=== PATIENT | male | born 1945 | race Hispanic/Latino ===

== ENCOUNTER 2017-09-09 00:10 | Emergency (ER) | payer OTHER ==
--- OUTSIDE RECORDS SUMMARY | 2017-09-09 00:12 | XMS REPORT | Clinical Summary ---
:1945 Author Organization [facility] Address [address] [place] [address] Care Team Providers Name Role Phone Delmer Naylor MD Primary Care Provider Allergies No Known Allergies Current Medications Hospital, Clinic, or Other Ordered Dose Route Frequency Start Date End Date Status Facility Administered Medication methylPREDNISolone acetate 40 mg IAtc Once 12/14/2015 Active (DEPO-MEDROL) injection 40 mgIndications: Knee pain, acute, left lidocaine (XYLOCAINE) 10 10 mg inj Once 12/14/2015 Active mg/mL (1 %) injection 10 mgIndications: Knee pain, acute, left Active Problems Problem Noted Date Complex tear of medial meniscus of left knee as current injury 03/21/2016 Social History Tobacco Use Types Packs/Day Years Used Date Never Smoker Smokeless Tobacco: Never Used Sex Assigned at Date Recorded Not on file Last Filed Vital Signs Not on file Plan of Treatment Health Maintenance Due Date Last Done Comments COLONOSCOPY 1997 ZOSTER VACCINE 2007 PNEUMOCOCCAL POLYSACCHARIDE VACCINE AGE 65 AND OVER 2012 PNEUMOCOCCAL-13 2012 INFLUENZA VACCINE 12/26/2017 Results Not on fileafter 09/08/2016 Insurance Payer Benefit Plan / Group Subscriber ID Type Phone Address [employer] xxxxxxxxxxxxx Workers Comp Home: [address] [id number] [phone] [place] [id number] DONOVAN RICHARDSON Personal/Family Self 1945 Home: [address] [place] [address] [phone] [address]
[2017-09-09 01:21] LABS: Absolute Lymphocytes (CBC) 1.2 K/uL (0.7-4.9); Absolute Monocytes 0.5 K/uL (0.1-1.3); Absolute Neutrophil 3.2 K/uL (1.8-8.0); Basophils % 0.5 % (0-1.3); Eosinophils % 0.4 % (0-4.4); Hematocrit 37.3 % (39.6-49.0); MCH 29.2 pg (27.0-35.0); MCV 86.9 fL (80-100); MPV 7.9 fL (7.6-11.3); Monocytes % 10.1 % (3.3-12.3); RBC Red Blood Cell Count 4.29 M/uL (4.33-5.43)
[2017-09-09 01:47] LABS: Potassium 3.9 mEq/L (3.6-5.0)
--- NOTE | 2017-09-09 02:28 | ER ---
Nurse's Notes [facility] Name: Donovan Richardson Age: 72 yrs Sex: Male : 1945 Arrival Date: 09/09/2017 Time: 00:12 Bed 15 Private MD: Javi Holman Diagnosis: Acute upper respiratory infection, unspecified;Influenza due to other identified influenza virus Presentation: 09/09 00:26 Presenting complaint: Patient states: he is having flu like symptoms since bb with fever, cough, pain with cough, congestion and sore throat, pt taking tylenol for the fever. Transition of care: patient was not received from another setting of care. Onset of symptoms was September 06, 2017. Care prior to arrival: None. 00:26 Method Of Arrival: Ambulatory bb 00: Acuity: TOMMIE 4 bb Historical: - Allergies: : No Known Allergies; bb - Home Meds: 00:29 aspirin 81 mg Oral TbEC 1 tab once daily [Active]; atorvastatin 20 mg Oral tab 1 tab bb once daily [Active]; - PMHx: 00:29 None; bb - PSHx: 00:29 Cholecystectomy; colonoscopy; left leg surgery; bb - Immunization history:: Adult Immunizations up to date, Pneumococcal vaccine is up to date, Flu vaccine is not up to date. - Social history:: Smoking status: Patient/guardian denies using tobacco, Patient uses alcohol, occasionally. Patient/guardian denies using street drugs. Screenin:29 Abuse screen: Denies threats or abuse. Nutritional screening: No deficits noted. ea Tuberculosis screening: No symptoms or risk factors identified. Fall Risk None identified. Assessment: 01:00 General: Appears uncomfortable, Behavior is calm, cooperative, appropriate for age. ea Pain: Complains of pain in generalized pain Pain currently is 8 out of 10 on a pain scale. Quality of pain is described as aching. Neuro: Level of Consciousness is awake, alert, obeys commands, Oriented to person, place, time. Cardiovascular: Heart tones present Patient's skin is warm and dry. Respiratory: Airway is patent Respiratory effort is even, unlabored, Respiratory pattern is regular, symmetrical, Breath sounds are clear bilaterally. Respiratory: GI: No signs and/or symptoms were reported involving the gastrointestinal system. : No signs and/or symptoms were reported regarding the genitourinary system. EENT: Reports nasal congestion nasal discharge that is yellow that is watery. Derm: Skin is pink, warm \T\ dry. 02:17 Reassessment: Patient and/or family updated on plan of care and expected duration. Pain ea level reassessed. Patient is alert, oriented x 3, equal unlabored respirations, skin warm/dry/pink. Vital Signs: 00:29 BP 149 / 88; Pulse 90; Resp 20 S; Temp 99.1(O); Pulse Ox 95% on R/A; Weight 106.59 kg bb (R); Height 5 ft. 5 in. (165.10 cm) (R); Pain 0/10; 01:29 BP 149 / 85; Pulse 84; Resp 18; Pulse Ox 99% on R/A; ea 02:25 BP 147 / 79; Pulse 91; Resp 18; Pulse Ox 98% on R/A; ea 00:29 Body Mass Index 39.11 (106.59 kg, 165.10 cm) ED Course: 00:12 Patient arrived in ED. am2 00:13 Javi Holman, is Private Physician. am2 00:28 Triage completed. bb 00:29 Arm band placed on Patient placed in an exam room, on a stretcher, on pulse oximetry. bb Family accompanied patient. 00:32 Chuy Rojas MD is Attending Physician. 01:00 Camila Calloway, LUCIA is Primary Nurse. ea 01:00 Patient has correct armband on for positive identification. Placed in gown. Bed in low ea position. Call light in reach. Side rails up X2. 01:00 Inserted saline lock: 20 gauge in right antecubital area, using aseptic technique. ea Blood collected. 01:19 X-ray completed. Patient tolerated procedure well. kp1 01:24 XRAY Chest Pa And Lat (2 Views) In Process Unspecified. EDMS 02:50 No provider procedures requiring assistance completed. IV discontinued, intact, ea bleeding controlled, No redness/swelling at site. Pressure dressing applied. Administered Medications: No medications were administered Outcome: 02:27 Discharge ordered by . gs 02:50 Discharged to home ambulatory, with significant other. ea 02:50 Condition: improved 02:50 Discharge instructions given to patient, Instructed on discharge instructions, follow up and referral plans. Demonstrated understanding of instructions, follow-up care. 02:58 Patient left the ED. kassandra Signatures: Dispatcher [employer] EDMS Mary Rea RN RN bb Moreno, Amanda 2 Mavis Redding 1 Camila Calloway RN RN ea Starr, Gregory, MD MD gs Corrections: (The following items were deleted from the chart) 00:30 00:26 Presenting complaint: Patient states: he is having flu like symptoms since with fever, cough, congestion and sore throat, pt taking tylenol for the fever bb 03:50 03:47 Patient left the ED. kassandra cannon
--- NOTE | 2017-09-09 02:28 | EDPHYS ---
Physician Documentation [facility] Name: Donovan Richardson Age: 72 yrs Sex: Male : 1945 Arrival Date: 09/09/2017 Time: 00:12 Bed 15 Private MD: Javi Holman ED Physician Chuy Rojas HPI: 09/09 02:21 This 72 yrs old Male presents to ER via Ambulatory with complaints of Fever, gs Cough, Congestion. 02:21 Onset: The symptoms/episode began/occurred 2 day(s) ago. Associated signs and symptoms: gs Pertinent positives: cough, sore throat. Severity of symptoms: At their worst the symptoms were moderate in the emergency department the symptoms are unchanged. The patient has experienced similar episodes in the past, a few times. Historical: - Allergies: 00:29 No Known Allergies; bb - Home Meds: :29 aspirin 81 mg Oral TbEC 1 tab once daily [Active]; atorvastatin 20 mg Oral tab 1 tab bb once daily [Active]; - PMHx: :29 None; bb - PSHx: 00:29 Cholecystectomy; colonoscopy; left leg surgery; bb - Immunization history:: Adult Immunizations up to date, Pneumococcal vaccine is up to date, Flu vaccine is not up to date. - Social history:: Smoking status: Patient/guardian denies using tobacco, Patient uses alcohol, occasionally. Patient/guardian denies using street drugs. ROS: 02:21 All other systems are negative. gs Exam: 02:21 Head/Face: Normocephalic, atraumatic. Eyes: Pupils equal round and reactive to light, gs extra-ocular motions intact. Lids and lashes normal. Conjunctiva and sclera are non-icteric and not injected. Cornea within normal limits. Periorbital areas with no swelling, redness, or edema. Neck: Trachea midline, no thyromegaly or masses palpated, and no cervical lymphadenopathy. Supple, full range of motion without nuchal rigidity, or vertebral point tenderness. No Meningismus. Chest/axilla: Normal chest wall appearance and motion. Nontender with no deformity. No lesions are appreciated. Cardiovascular: Regular rate and rhythm with a normal S1 and S2. No gallops, murmurs, or rubs. Normal PMI, no JVD. No pulse deficits. Respiratory: Lungs have equal breath sounds bilaterally, clear to auscultation and percussion. No rales, rhonchi or wheezes noted. No increased work of breathing, no retractions or nasal flaring. Abdomen/GI: Soft, non-tender, with normal bowel sounds. No distension or tympany. No guarding or rebound. No evidence of tenderness throughout. Back: No spinal tenderness. No costovertebral tenderness. Full range of motion. Skin: Warm, dry with normal turgor. Normal color with no rashes, no lesions, and no evidence of cellulitis. MS/ Extremity: Pulses equal, no cyanosis. Neurovascular intact. Full, normal range of motion. Neuro: Awake and alert, GCS 15, oriented to person, place, time, and situation. Cranial nerves II-XII grossly intact. Motor strength 5/5 in all extremities. Sensory grossly intact. Cerebellar exam normal. Normal gait. 02:21 Constitutional: The patient appears alert, awake. 02:21 ENT: Posterior pharynx: erythema, that is mild. Vital Signs: 00:29 BP 149 / 88; Pulse 90; Resp 20 S; Temp 99.1(O); Pulse Ox 95% on R/A; Weight 106.59 kg bb (R); Height 5 ft. 5 in. (165.10 cm) (R); Pain 0/10; 01:29 BP 149 / 85; Pulse 84; Resp 18; Pulse Ox 99% on R/A; ea 02:25 BP 147 / 79; Pulse 91; Resp 18; Pulse Ox 98% on R/A; ea 00:29 Body Mass Index 39.11 (106.59 kg, 165.10 cm) MDM: 00:44 Patient medically screened. 02:21 Differential diagnosis: viral Infection, bronchitis, pneumonia. Data reviewed: vital gs signs, nurses notes. Response to treatment: the patient's symptoms have markedly improved after treatment. 09/09 00:51 Order name: Flu; Complete Time: 02:41 09/09 00:51 Order name: CBC with Diff; Complete Time: 02:00 09/09 00:51 Order name: XRAY Chest Pa And Lat (2 Views) 09/09 02:25 Interpretation: No acute disease except. 09/09 00:51 Order name: Basic Metabolic Panel; Complete Time: 02:00 gs Administered Medications: No medications were administered Disposition: 09/09/17 02:27 Discharged to Home. Impression: Acute upper respiratory infection, unspecified, Influenza due to other identified influenza virus. - Condition is Stable. - Discharge Instructions: Upper Respiratory Infection, Adult. - Medication Reconciliation Form, Thank You Letter, Antibiotic Education, Prescription Opioid Use form. - Follow up: Private Physician; When: 2 - 3 days; Reason: Re-evaluation by your physician. Signatures: Dispatcher [employer] Mary Villeda RN RN bb Antunez, Elena, RN RN ea Starr, Gregory, MD MD gs
[2017-09-09 03:51] VITALS: TEMP 99.1
[2017-09-09 03:53] VITALS: BP 147/79; O2SAT 98
--- NOTE | 2017-09-09 10:20 | RAD REPORT ---
EXAM DESCRIPTION: RAD - Chest Pa And Lat (2 Views) - 09/09/2017 1:24 am CLINICAL HISTORY: Fever, cough, flu-like symptoms COMPARISON: April 2017 TECHNIQUE: PA and lateral views of the chest were obtained. FINDINGS: The lungs are clear of a focal consolidation, mass or failure finding. Interstitial markin gs are mildly prominent but not clearly different. Heart size is normal and central vasculature is within normal limits. No pleural effusion or pneumothorax seen. No acute bony finding noted. No ao rtic abnormality. IMPRESSION: No acute cardiopulmonary process. Interstitial markings are prominent but stable.
== END 2017-09-09 03:47 | disposition home or self-care (01) ==
LOC: ER 00:10
DX: J10.1 Influenza due to other identified influenza virus with other respiratory manifestations (principal); Z79.82 Long term (current) use of aspirin
CPT/HCPCS: 36415; 71046; 80048; 85025; 87804; 99284

== ENCOUNTER 2018-08-12 12:36 | Emergency (ER) | payer OTHER ==
--- OUTSIDE RECORDS SUMMARY | 2018-08-12 12:38 | XMS REPORT | Clinical Summary ---
:1945 Author Organization [facility] Address [address] [place] [address] Care Team Providers Name Role Phone Delmer Naylor MD Primary Care Provider Allergies No Known Allergies Medications Hospital, Clinic, or Other Ordered Dose Route Frequency Start Date End Date Status Facility Administered Medication methylPREDNISolone acetate 40 mg IAtc once 12/14/2015 Active (DEPO-MEDROL) injection 40 mgIndications: Knee pain, acute, left lidocaine (XYLOCAINE) 10 10 mg inj once 12/14/2015 Active mg/mL (1 %) injection 10 mgIndications: Knee pain, acute, left Active Problems Problem Noted Date Complex tear of medial meniscus of left knee as current injury 03/21/2016 Social History Tobacco Use Types Packs/Day Years Used Date Never Smoker Smokeless Tobacco: Never Used Sex Assigned at Date Recorded Not on file Job Start Date Occupation Industry Not on file Not on file Not on file Travel History Travel Start Travel End No recent travel history available. Last Filed Vital Signs Not on file Plan of Treatment Health Maintenance Due Date Last Done Comments COLON CANCER SCREENING 1997 SHINGLES VACCINES (#1) 1997 65+ PNEUMOCOCCAL VACCINE (1 of 2 - PCV13) 2012 PNEUMOCOCCAL POLYSACCHARIDE VACCINE AGE 65 AND OVER 2012 INFLUENZA VACCINE 12/26/2017 Results Not on fileafter 08/11/2017 Insurance Payer Benefit Plan / Group Subscriber ID Type Phone Address [employer] xxxxxxxxxxxxx Workers Comp Advance Directives Patient has advance care planning documents on file. For more information, please contact:Hal Benton[address] [place] [address]
--- OUTSIDE RECORDS SUMMARY | 2018-08-12 12:38 | XMS REPORT ---
:1945 Author Organization [employer] Care Team Providers Name Role Phone [facility] Provider Role Unavailable Allergies No Known Allergies Problems Problem Type Condition Code Onset Dates Condition Status Assessment Colon polyp K63.5 Active Assessment Benign essential HTN I10 Active Assessment Hypertriglyceridemia E78.1 Active Assessment Hyperglycemia R73.9 Active Problem Hypertriglyceridemia E78.1 Active Problem Colon polyp K63.5 Active Problem Benign essential HTN I10 Active Problem Family history of cardiac disorder Z82.49 Active Problem Diverticulosis of large intestine K57.31 Active without perforation or abscess with bleeding Problem External hemorrhoids K64.4 Active Medications Medication Code System Code Instructions Start Date End Date Status Dosage Aspir-81 [facility] 92884613162 81 MG Orally Once Active 1 tablet a day Lipitor [facility] 34536217221 20 MG Orally Once Active 1 tablet a day Results No Known Results Summary Purpose eClinicalWorks Submission
--- OUTSIDE RECORDS SUMMARY | 2018-08-12 12:38 | XMS REPORT ---
:1945 Author Organization [employer] Care Team Providers Name Role Phone Javi Holman Provider Role Unavailable Allergies, Adverse Reactions, Alerts Substance Reaction Event Type N.K.D.A. Info Not Available Non Drug Allergy Problems Problem Type Condition Code Onset Dates Condition Status Assessment Colon polyp K63.5 Active Assessment Benign essential HTN I10 Active Assessment Hypertriglyceridemia E78.1 Active Assessment Prediabetes R73.03 Active Problem Hypertriglyceridemia E78.1 Active Problem Colon polyp K63.5 Active Problem Benign essential HTN I10 Active Problem Family history of cardiac disorder Z82.49 Active Problem Diverticulosis of large intestine K57.31 Active without perforation or abscess with bleeding Problem External hemorrhoids K64.4 Active Medications Medication Code System Code Instructions Start Date End Date Status Dosage Lipitor [facility] [id number] 20 MG Orally Once Active 1 tablet a day Aspir-[address] [facility] 10997561005 81 MG Orally Once Active 1 tablet a day Results No Known Results Summary Purpose eClinicalWorks Submission
[2018-08-12] MEDS ORDERED: KETOROLAC 30 MG/ML INJ ONE (15:12)
[2018-08-12] MEDS ORDERED: METHYLPREDNISOLONE 40 MG INJ ONE (15:12)
--- NOTE | 2018-08-12 15:47 | RAD REPORT ---
EXAM DESCRIPTION: US - Extremity Venous Uni Ltd - 08/12/2018 3:39 pm CLINICAL HISTORY: SWELLING Leg swelling and edema. COMPARISON: No comparisons FINDINGS: Left lower extremity venous system was interrogated with Doppler technique. Normal flow, c ompressibility and augmentation was noted. There is no DVT present. IMPRESSION: No evidence of left lower extremity deep venous thrombosis.
--- NOTE | 2018-08-12 16:11 | EDPHYS ---
Physician Documentation [facility] Name: Donovan Richardson Age: 73 yrs Sex: Male : 1945 Arrival Date: 08/12/2018 Time: 12:38 Bed 27 Private MD: [facility] ED Physician Bi Shook HPI: 08/12 15:18 This 73 yrs old Male presents to ER via Ambulatory with complaints of Leg Pain.ma2 15:18 The patient presents with decreased range of motion. The complaints affect the medial ma2 aspect of left calf. Onset: The symptoms/episode began/occurred gradually, 3 day(s) ago. Associated signs and symptoms: Pertinent positives: swelling, Pertinent negatives nausea, swelling, vomiting. Severity of symptoms: At their worst the symptoms were moderate, in the emergency department the symptoms are unchanged. The patient has not experienced similar symptoms in the past. Historical: - Allergies: 12:50 No Known Allergies; hb - Home Meds: 12:50 aspirin 81 mg Oral TbEC 1 tab once daily [Active]; atorvastatin 20 mg Oral tab 1 tab hb once daily [Active]; - PSHx: 12:50 Cholecystectomy; colonoscopy; left leg surgery; hb - Immunization history:: Adult Immunizations up to date. - Social history:: Smoking status: Patient/guardian denies using tobacco, Patient/guardian denies using alcohol, street drugs, The patient lives with family. - Ebola Screening: : No symptoms or risks identified at this time. - Family history:: not pertinent. ROS: 15:18 Constitutional: Negative for fever, chills, and weight loss, Cardiovascular: Negative ma2 for chest pain, palpitations, and edema, Respiratory: Negative for shortness of breath, cough, wheezing, and pleuritic chest pain, Abdomen/GI: Negative for abdominal pain, nausea, diarrhea, and constipation. 15:18 MS/extremity: Positive for pain, swelling, Negative for bite, deformity, paresthesias. 15:18 All other systems are negative. Exam: 15:18 Constitutional: This is a well developed, well nourished patient who is awake, alert, ma2 and in no acute distress. Head/Face: Normocephalic, atraumatic. Cardiovascular: Regular rate and rhythm with a normal S1 and S2. No gallops, murmurs, or rubs. Normal PMI, no JVD. No pulse deficits. Respiratory: Lungs have equal breath sounds bilaterally, clear to auscultation and percussion. No rales, rhonchi or wheezes noted. No increased work of breathing, no retractions or nasal flaring. Abdomen/GI: Soft, non-tender, with normal bowel sounds. No distension or tympany. No guarding or rebound. No evidence of tenderness throughout. Back: No spinal tenderness. No costovertebral tenderness. Full range of motion. Skin: Warm, dry with normal turgor. Normal color with no rashes, no lesions, and no evidence of cellulitis. Neuro: Awake and alert, GCS 15, oriented to person, place, time, and situation. Cranial nerves II-XII grossly intact. Motor strength 5/5 in all extremities. Sensory grossly intact. Cerebellar exam normal. Normal gait. 15:18 Musculoskeletal/extremity: Extremities: all appear grossly normal, with no appreciated pain with palpation, ROM: intact in all extremities, Circulation is intact in all extremities. Sensation intact. Compartment Syndrome exam of affected extremity: is normal. no pain, no numbness, Tendon exam: specific tendon testing normal through active and passive range of motion Calves: are non-tender. Vital Signs: 12:49 BP 160 / 79; Pulse 79; Resp 18; Temp 97.9; Pulse Ox 100% on R/A; Pain 8/10; hb 14:30 BP 156 / 85; Pulse 77; Resp 19; Pulse Ox 100% on R/A; ca1 15:36 BP 152 / 83; Pulse 72; Resp 19; Pulse Ox 100% on R/A; ca1 16:06 BP 154 / 73; Pulse 72; Resp 20; Temp 98.3; Pulse Ox 98% ; lt1 MDM: 14:35 Patient medically screened. ma2 15:18 Differential diagnosis: contusion, abrasion, tendonitis. la2 16:09 Data reviewed: vital signs, nurses notes. Counseling: I had a detailed discussion with ma2 the patient and/or guardian regarding: the historical points, exam findings, and any diagnostic results supporting the discharge/admit diagnosis, the presence of at least one elevated blood pressure reading (>120/80) during this emergency department visit, the need for outpatient follow up. Response to treatment: the patient's symptoms have markedly improved after treatment. 08/12 14:48 Order name: Extremity Venous Uni Ltd ; Complete Time: 16:09 ma2 Administered Medications: 15:05 Drug: MethylPREDNISolone Acetate 40 mg Route: IM; Site: right deltoid; ca1 16:00 Follow up: Response: No adverse reaction; Pain is decreased ca1 15:07 Drug: TORadol 60 mg Route: IM; Site: right gluteus; ca1 16:00 Follow up: Response: No adverse reaction; Pain is decreased ca1 Disposition: 08/12/18 16:10 Discharged to Home. Impression: Sciatica, left side. - Condition is Stable. - Discharge Instructions: Sciatica. - Prescriptions for Tylenol- Codeine #3 300-30 mg Oral Tablet - take 2 tablet by ORAL route every 6 hours As needed; 30 tablet. - Medication Reconciliation Form, Thank You Letter, Antibiotic Education, Prescription Opioid Use form. - Follow up: Private Physician; When: Tomorrow; Reason: Continuance of care. - Notes: SEE YOUR PCP FOR REPEAT ULTRASOUND IN 1 WEEK Signatures: Dispatcher [employer] EDKenzie Perkins RN RN Fanta Spears RN RN Bi Shook MD MD ma2 Mikaela Ball RN RN ca1 Corrections: (The following items were deleted from the chart) 16:30 16:10 08/12/2018 16:10 Discharged to Home. Impression: Sciatica, left side. Condition iw is Stable. Forms are Medication Reconciliation Form, Thank You Letter, Antibiotic Education, Prescription Opioid Use. Follow up: Private Physician; When: Tomorrow; Reason: Continuance of care. ma2
--- NOTE | 2018-08-12 16:11 | ER ---
Nurse's Notes [facility] Name: Donovan Richardson Age: 73 yrs Sex: Male : 1945 Arrival Date: 08/12/2018 Time: 12:38 Bed 27 Private MD: Javi Holman Diagnosis: Sciatica, left side Presentation: 08/12 12:48 Presenting complaint: Left hip pain that radiates to left foot and left leg swelling x hb 4 days. Transition of care: patient was not received from another setting of care. Onset of symptoms was August 09, 2018. Risk Assessment: Do you want to hurt yourself or someone else? Patient reports no desire to harm self or others. Care prior to arrival: None. 12:48 Method Of Arrival: Ambulatory hb 12:48 Acuity: TOMMIE 3 hb 13:40 Initial Sepsis Screen: Does the patient meet any 2 criteria? No. Patient's initial ca1 sepsis screen is negative. Does the patient have a suspected source of infection? No. Patient's initial sepsis screen is negative. Historical: - Allergies: 12:50 No Known Allergies; hb - Home Meds: 12:50 aspirin 81 mg Oral TbEC 1 tab once daily [Active]; atorvastatin 20 mg Oral tab 1 tab hb once daily [Active]; - PSHx: 12:50 Cholecystectomy; colonoscopy; left leg surgery; hb - Immunization history:: Adult Immunizations up to date. - Social history:: Smoking status: Patient/guardian denies using tobacco, Patient/guardian denies using alcohol, street drugs, The patient lives with family. - Ebola Screening: : No symptoms or risks identified at this time. - Family history:: not pertinent. Screenin:30 Abuse screen: Denies threats or abuse. Denies injuries from another. Nutritional ca1 screening: No deficits noted. Tuberculosis screening: No symptoms or risk factors identified. Fall Risk None identified. Assessment: 13:30 General: Appears in no apparent distress. uncomfortable, Behavior is calm, cooperative, ca1 appropriate for age. 13:30 Pain: Complains of pain in medial aspect of left calf Pain radiates to left buttocks, ca1 left foot, left thigh Pain currently is 7 out of 10 on a pain scale. Quality of pain is described as throbbing, Pain began 2-3 days ago. Is intermittent, Aggravated by repositioning. 13:30 Neuro: Level of Consciousness is awake, alert, obeys commands, Oriented to person, ca1 place, time, situation. Cardiovascular: Heart tones S1 S2 present Capillary refill < 3 seconds Patient's skin is warm and dry. Respiratory: Airway is patent Respiratory effort is even, unlabored, Respiratory pattern is regular, symmetrical, Breath sounds are clear bilaterally. GI: No deficits noted. No signs and/or symptoms were reported involving the gastrointestinal system. : No deficits noted. No signs and/or symptoms were reported regarding the genitourinary system. EENT: No deficits noted. No signs and/or symptoms were reported regarding the EENT system. Derm: Skin is intact, is healthy with good turgor, Skin is pink, warm \T\ dry. Musculoskeletal: Circulation, motion, and sensation intact. Capillary refill < 3 seconds, Range of motion: limited in left hip, left knee and left ankle. 14:29 Reassessment: Patient appears in no apparent distress at this time. Patient and/or ca1 family updated on plan of care and expected duration. Pain level reassessed. Patient is alert, oriented x 3, equal unlabored respirations, skin warm/dry/pink. 15:35 Reassessment: Patient appears in no apparent distress at this time. Patient and/or ca1 family updated on plan of care and expected duration. Pain level reassessed. Patient is alert, oriented x 3, equal unlabored respirations, skin warm/dry/pink. Patient states feeling better. 16:20 Reassessment: Patient appears in no apparent distress at this time. Patient and/or ca1 family updated on plan of care and expected duration. Pain level reassessed. Vital Signs: 12:49 BP 160 / 79; Pulse 79; Resp 18; Temp 97.9; Pulse Ox 100% on R/A; Pain 8/10; hb 14:30 BP 156 / 85; Pulse 77; Resp 19; Pulse Ox 100% on R/A; ca1 15:36 BP 152 / 83; Pulse 72; Resp 19; Pulse Ox 100% on R/A; ca1 16:06 BP 154 / 73; Pulse 72; Resp 20; Temp 98.3; Pulse Ox 98% ; lt1 ED Course: 12:38 Patient arrived in ED. as 12:38 Javi Holman DO is Private Physician. as 12:49 Triage completed. hb 12:49 Arm band placed on. hb 13:30 Patient has correct armband on for positive identification. Bed in low position. Call ca1 light in reach. Side rails up X 1. Pulse ox on. NIBP on. Warm blanket given. 14:35 Bi Shook MD is Attending Physician. noelle 14:58 Mikaela Ball, RN is Primary Nurse. ca1 15:22 Patient taken to ultrasound. via wheelchair. hr 15:35 Ultrasound completed. Patient tolerated well. Patient moved back from ultrasound. hr 15:40 Extremity Venous Uni Ltd US In Process Unspecified. EDMS 16:25 No provider procedures requiring assistance completed. Patient did not have IV access ca1 during this emergency room visit. Administered Medications: 15:05 Drug: MethylPREDNISolone Acetate 40 mg Route: IM; Site: right deltoid; ca1 16:00 Follow up: Response: No adverse reaction; Pain is decreased ca1 15:07 Drug: TORadol 60 mg Route: IM; Site: right gluteus; ca1 16:00 Follow up: Response: No adverse reaction; Pain is decreased ca1 Outcome: 16:10 Discharge ordered by . ma2 16:28 Discharged to home ambulatory, with family. ca1 16:28 Condition: stable 16:28 Discharge instructions given to patient, family, Instructed on discharge instructions, follow up and referral plans. medication usage, Demonstrated understanding of instructions, follow-up care, medications, Prescriptions given X 1. 16:30 Patient left the ED. iw Signatures: Dispatcher [employer] EDMS Kaykay Chisholm Jeni Voss as Kenzie Hastings RN RN Fanta Spears RN RN Bi Shook MD MD ma2 Acob, Cheryl, RN RN [facility] Beatrice Lynchah lt1 Corrections: (The following items were deleted from the chart) 16:28 13:30 General: Appears ca1 ca1 16:32 16:31 Patient did not have IV access during this emergency room visit. ca1 ca1 16:32 16:31 No provider procedures requiring assistance completed. ca1 ca1
[2018-08-12 17:05] VITALS: BP 154/73; TEMP 98.3; O2SAT 98
== END 2018-08-12 16:30 | disposition home or self-care (01) ==
LOC: ER 12:36
DX: M54.32 Sciatica, left side (principal); Z79.82 Long term (current) use of aspirin
CPT/HCPCS: 93971; 96372; 99284; J2920

== ENCOUNTER 2020-09-22 16:49 | Emergency (ER) | payer OTHER ==
--- OUTSIDE RECORDS SUMMARY | 2020-09-22 16:51 | XMS REPORT | Continuity of Care Document ---
:1945 Author Organization [facility] t Address 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 Social History Social Habit Start Date Stop Date Quantity Comments Source Tobacco use and 2016-03-21 2016-03-21 Never used Hal Reese ethodist exposure 00:00:00 00:00:00 Sex Ass[birth year] [facility] ethodist 00:00:00 00:00:00 Smoking Status Start Date Stop Date Source [facility] sm[facility] Ordered Filled Start Stop Current Ordering Indication Dosage Frequency Signature Comments Components Source Medication Medication Date Date Medication? Clinician (SIG) Name Name Losartan Losartan Yes Javi [address] [facility] Potassium Potassium 9- [facility] Trazodone Trazodone Yes Javi [address] [facility] HCl HCl 5-06 [facility] Acetaminoph Acetaminoph Yes Javi [address] [facility] en-Codeine en-Codeine 9-30 [facility] as needed [facility] methylPREDN Yes Knee pain, 40mg Hong ISolone - acute, left Metho di acetate 11:00: st (DEPO-MEDRO 00 L) injection 40 mg lidocaine Yes Knee pain, 10mg Antoni franco (XYLOCAINE) 12-13 acute, left M ethodi 10 mg/mL (1 11:00: st %) 00 injection 10 mg Lipitor Lipitor Yes Javi [address] [facility] Aspir-81 Aspir-81 Yes Javi [address] [facility] Tylenol Tylenol Yes J[facility] take 1 [facility] (#4) with (#4) with Holman tablet Candis kes - codeine codeine [facility] Atorvastati Atorvastati Yes Javi TAKE [address] [facility] n Calcium n Calcium [facility]man TABLET BY [facility] MOUTH ONCE [facility] Trazodone Trazodone Yes Javi TAKE [address] HCl HCl [facility] TABLET BY [facility] DAY l AT BEDTIME Outpati NEEDED ent Clinics Procedures This patient has no known procedures. Plan of Care Planned Activity Planned Date Details Comments Source Future Scheduled 2020-12-26 INFLUENZA VACCINE [place] [facility] 00:00:00 [code = INFLUENZA VACCINE] Future Scheduled 2012 65+ PNEUMOCOCCAL [facility] 00:00:00 VACCINE (1 of 1 - PPSV23) [code = 65+ PNEUMOCOCCAL VACCINE (1 of 1 - PPSV23)] Future Scheduled 1997 COLONOSCOPY SCREENING Antoni franco [facility] 00:00:00 [code = COLONOSCOPY SCREENING] Future Scheduled 1997 SHINGLES VACCINES (#1) H aggie [facility] 00:00:00 [code = SHINGLES VACCINES (#1)] Future Scheduled 1963 COVID-19 VACCINE (1) Marissa john [facility] 00:00:00 [code = COVID-19 VACCINE (1)] Encounters Start End Encounter Admission Attending Care Care Encounter Source Date/Time Date/Time Type Type Clinicians Facility Department ID 2020-08-04 2020-08-04 Outpatient [facility] [id number] [facility] 2020-06-26 2020-06-26 Outpatient [facility] [id number] [facility] 2020-04-14 2020-04-14 Outpatient [facility] [id number] [facility] 2020-03-03 2020-03-03 Outpatient [facility] [id number] [facility] 2020-02-18 2020-02-18 Outpatient [facility] [id number] [facility] 2020-02-04 2020-02-04 [facility] [id number] [facility] 14:50:[facility] 14:50:[address] [facility] - Drive [facility] Medicine l Medicine Outpati ent Clinics 2020-01-01 2020-01-01 [facility] [id number] [facility] 09:15:00 09:15:[address] [facility] - Drive [facility] Medicine l Medicine Outpati ent Clinics 2019-10-01 2019-10-01 [facility] [id number] [facility] 09:00:00 09:00:[address] [facility] - Drive [facility] Medicine l Medicine Outpati ent Clinics 2019-10-01 2019-10-01 [facility] [id number] [facility] 08:30:00 08:30:[address] [facility] - Drive [facility] Medicine l Medicine Outpati ent Clinics 2019-09-29 2019-09-29 [facility] [id number] [facility] 13:21:00 13:21:[address] [facility] - Drive [facility] Medicine l Medicine Outpati ent Clinics 2019-07-01 2019-07-01 [facility] [id number] [facility] 08:30:00 08:30:[address] [facility] - Drive [facility] Medicine Medicine Outpati ent Clinics 2019-03-31 2019-03-31 [facility] [id number] [address] 11:30:00 11:30:00 [place] [employer] s - Drive [facility] Medicine Outpati ent Clinics 2019-03-21 2019-03-21 [facility] [id number] 15:30:00 15:30:00 [place] [employer] [facility] - Drive [facility] Medicine Outpati ent Clinics 2019-02-24 2019-02-24 [facility] [id number] [facility] [address] 10:00:00 10:00:00 [place] [employer] - Drive [facility] Medicine Outpati ent Clinics 2018-12-18 2018-12-18 [facility] [id number] [facility] 08:15:00 08:15:00 [place] [employer] - Drive [facility] Medicine Outpati ent Clinics 2018-12-13 2018-12-13 [facility] [id number] [facility] 11:43:00 11:43:00 [place] [employer] - Drive [facility] Medicine Outpati ent Clinics 2018-09-17 2018-09-17 [facility] [id number] [facility] 09:00:00 09:00:00 [place] [employer] - Drive [facility] Medicine Outpati ent Clinics 2018-08-23 2018-08-23 [facility] [id number] [facility] 10:27:00 10:27:00 [place] [employer] - Drive [facility] Medicine Outpati ent Clinics 2018-08-20 2018-08-20 [facility] [id number] [facility] 10:19:00 10:19:00 [place] [employer] - Drive [facility] Medicine Outpati ent Clinics 2018-08-19 2018-08-19 [facility] [id number] [facility] 13:00:00 13:00:00 [place] [employer] - Drive [facility] Medicine Outpati ent Clinics 2018-08-15 2018-08-15 [facility] [id number] [facility] 11:55:00 11:55:00 t [employer] [facility] Medicine Outpati ent Clinics 2018-08-13 2018-08-13 [facility] [id number] [facility] 15:21:00 15:21:00 t [employer] Out[facility] Clinics 2018-08-13 2018-08-13 [facility] [id number] 11:15:00 11:15:00 t [employer] [facility] Outpat[facility] Clinics 2018-08-02 2018-08-02 [facility] [id number] [facility] 09:15:00 09:15:00 t [employer] Outpat[facility] Clinics 2017-12-13 2017-12-13 [facility] [id number] [facility] 08[facility]30:00 08:30:00 t [facility] Outpat[facility] Clinics Results This patient has no known results.
[2020-09-22 19:11] LABS: Urine Blood Negative (Negative); Urine Glucose Negative (Negative); Urine Protein Negative (Negative); Urine Specific Gravity >=1.030 (1.005-1.030); Urine pH 6.5 (5.0-7.0)
[2020-09-22 19:18] LABS: Absolute Lymphocytes (CBC) 2.5 K/uL (0.7-4.9); Hematocrit 37.5 % (39.6-49.0); Lymphocytes % 35.5 % (15.3-44.8)
[2020-09-22 19:23] LABS: Protime INR 0.97
[2020-09-22] MEDS ORDERED: NA CHLORIDE 0.9% 1,000 ML ONE (19:37)
--- NOTE | 2020-09-22 19:45 | RAD REPORT ---
EXAM DESCRIPTION: RAD - Chest Single View - 09/22/2020 7:38 pm CLINICAL HISTORY: CHEST PAIN Chest pain. COMPARISON: Chest Pa And Lat (2 Views) dated 09/09/2017; Chest Pa And Lat (2 Views) dated 05/26/2017; Chest Single View dated 01/27/2016 FINDINGS: Portable technique limits examination quality. The lungs are grossly clear. The heart is upper limit of normal in size. No displaced fractures. IMPRESSION: No acute intrathoracic process suspected.
[2020-09-22 19:54] LABS: ALT/SGPT 28 U/L (12-78); AST/SGOT 17 U/L (15-37); Albumin 3.7 g/dL (3.4-5.0); Alkaline Phosphatase 78 U/L (45-117); BUN Blood Urea Nitrogen 22 mg/dL (7-18); Bicarbonate 28 mmol/L (21-32); Bilirubin Direct 0.2 mg/dL (0-0.2); Bilirubin Total 0.6 mg/dL (0.2-1.0); Glucose Level 98 mg/dL (74-106); Lipase 196 U/L (73-393); Magnesium 2.1 mg/dL (1.8-2.4); NT PRO-BNP 93 pg/mL (<125); Potassium 3.9 mmol/L (3.5-5.1); Protein, Total 7.3 g/dL (6.4-8.2); Sodium Level 143 mmol/L (136-145); Troponin (Emerg Dept Use Only) < 0.02 ng/mL (0.0-0.045)
--- NOTE | 2020-09-22 20:45 | RAD REPORT ---
EXAM DESCRIPTION: CTAbdomen Pelvis W Contrast - 09/22/2020 8:35 pm CLINICAL HISTORY: Abdominal pain. rectal bleeding COMPARISON: CT ABD PELVIS W CONTRAST dated 10/07/2008 TECHNIQUE: Biphasic CT imaging of the abdomen and pelvis was performed with 100 ml non-ionic IV cont rast. All CT scans are performed using dose optimization technique as appropriate and may include automated exposure control or mA/KV adjustment according to patient size. FINDINGS: The lung bases are clear.Cholecystectomy. The liver demonstrates multiple benign cysts. The spleen, pancreas, adrenal glands and kidneys are wi thin normal limits. No bowel obstruction, free air, free fluid or abscess. Colonic diverticulosis is present without dive rticulitis. Mild asymmetric wall thickening of the rectum is seen. The appendix is normal. No eviden ce of significant lymphadenopathy. Moderate lumbar degenerative changes. Small fat containing left inguinal hernia. IMPRESSION: Advanced colonic diverticulosis is seen. No evidence of diverticulitis. Asymmetric rectal wall thickening is noted. Colonoscopy followup may be of value if not recently perf ormed.
--- NOTE | 2020-09-22 21:38 | ER ---
Nurse's Notes [facility] Name: Donovan Richardson Age: 75 yrs Sex: Male : 1945 Arrival Date: 09/22/2020 Time: 16:52 Bed 14 Private MD: Javi Holman Diagnosis: Rectal bleeding. Advanced colonic diverticulosis. Chest pain Presentation: 09/22 17:17 Chief complaint: Patient states: Dr. Holman sent pt over for bright red rectal bleeding em off and on since April, had colonoscopy done in April as well and was normal, also reports chest discomfort/epigastric area, has had right lower back pain for about 2 weeks, denies diarrhea, shortness of breath, weak, or fever. Coronavirus screen: Client denies travel out of the [place] in the last 14 days. Ebola Screen: Patient negative for fever greater than or equal to 101.5 degrees Fahrenheit, and additional compatible Ebola Virus Disease symptoms Patient denies exposure to infectious person. Patient denies travel to an Ebola-affected area in the 21 days before illness onset. No symptoms or risks identified at this time. Initial Sepsis Screen: Does the patient meet any 2 criteria? No. Patient's initial sepsis screen is negative. Does the patient have a suspected source of infection? No. Patient's initial sepsis screen is negative. Risk Assessment: Do you want to hurt yourself or someone else? Patient reports no desire to harm self or others. Onset of symptoms was September 22, 2020. 17:17 Method Of Arrival: Ambulatory em 17:17 Acuity: TOMMIE 3 em Historical: - Allergies: 17:22 No Known Allergies; em - PMHx: 17:22 Hypertension; em - PSHx: 17:22 Cholecystectomy; colonoscopy; left leg surgery; em - Immunization history:: Adult Immunizations up to date. - Social history:: Smoking status: Patient denies any tobacco usage or history of. Screenin:25 Abuse screen: Denies threats or abuse. Nutritional screening: No deficits noted. tw2 Tuberculosis screening: No symptoms or risk factors identified. Fall Risk Secondary diagnosis (15 points) impaired mobility. Assessment: 17:25 Pain: Pain began. tw2 17:30 General: Appears in no apparent distress. obese, well groomed, Behavior is calm, tw2 cooperative, appropriate for age. Neuro: Level of Consciousness is awake, alert, obeys commands, Oriented to person, place, time, situation. Cardiovascular: Patient's skin is warm and dry. Respiratory: Airway is patent Respiratory effort is even, unlabored, Respiratory pattern is regular, symmetrical. GI: Abdomen is round obese, Reports rectal bleeding. : No signs and/or symptoms were reported regarding the genitourinary system. Derm: No signs and/or symptoms reported regarding the dermatologic system. Musculoskeletal: Circulation, motion, and sensation intact. Range of motion: intact in all extremities. 18:30 Reassessment: Patient appears in no apparent distress at this time. No changes from tw2 previously documented assessment. Patient and/or family updated on plan of care and expected duration. Pain level reassessed. Patient is alert, oriented x 3, equal unlabored respirations, skin warm/dry/pink. 19:15 Reassessment: Patient appears in no apparent distress at this time. No changes from tw2 previously documented assessment. Patient and/or family updated on plan of care and expected duration. Pain level reassessed. Patient is alert, oriented x 3, equal unlabored respirations, skin warm/dry/pink. Vital Signs: 17:17 BP 157 / 81; Pulse 63; Resp 18; Temp 98.1(O); Pulse Ox 98% on R/A; Weight 104.78 kg; em Height 5 ft. 5 in. (165.10 cm); Pain 2/10; 20:13 BP 144 / 82; Pulse 63; Resp 16; Pulse Ox 96% on R/A; jm8 22:01 BP 148 / 77; Pulse 62; Resp 17; Pulse Ox 96% on R/A; jm8 17:17 Body Mass Index 38.44 (104.78 kg, 165.10 cm) em ED Course: 16:52 Patient arrived in ED. mr 16:52 Javi Holman DO is Private Physician. mr 17:21 Triage completed. em 17:22 Arm band placed on. em 17:24 Jacque Mojica, LUCIA is Primary Nurse. tw2 17:25 Placed in gown. Adult w/ patient. radiation monitor on. Pulse ox on. NIBP on. Warm tw2 blanket given. 17:25 Patient maintains SpO2 saturation greater than 95% on room air. tw2 18:41 Ricardo Luna MD is Attending Physician. pkl 19:05 Inserted saline lock: 20 gauge in right antecubital area, using aseptic technique. tw2 ,using aseptic technique. blood collected. 19:15 Report given to LUCIA Mata. tw2 19:16 Magnesium Sent. jm8 19:16 Liver (Hepatic) Function Sent. jm8 19:16 Basic Metabolic Panel Sent. jm8 19:16 CBC with Automated Diff Sent. jm8 19:16 Lipase Sent. jm8 19:16 XRAY Chest (1 view) Sent. jm8 19:38 XRAY Chest (1 view) In Process Unspecified. EDMS 20:35 CT Abd/Pelvis - IV Contrast Only In Process Unspecified. EDMS 21:37 Don Peñaloza MD is Referral Physician. pkl 22:01 IV discontinued, intact, bleeding controlled, No redness/swelling at site. jm8 22:02 No provider procedures requiring assistance completed. jm8 Administered Medications: Discontinued: NS 0.9% 1000 ml IV at 125 ml/hr continuous 19:22 Drug: NS 0.9% 1000 ml Route: IV; Rate: 125 ml/hr; Site: right antecubital; jm8 22:03 Follow up: Response: No adverse reaction jm8 Outcome: 21:38 Discharge ordered by . pkl 22:02 Discharged to home jm8 22:02 Condition: good 22:02 Discharge instructions given to patient, family, Instructed on discharge instructions, Demonstrated understanding of instructions, follow-up care. 22:03 Patient left the ED. jm8 Signatures: Dispatcher [employer] EDOK Ricardo Luna MD MD pkl Rivera, Mary Fredi Kaur RN RN em Wise, Tara, RN RN tw2 Pancho Lebron RN RN jm8
--- NOTE | 2020-09-22 21:39 | EDPHYS ---
Physician Documentation [facility] Name: Donovan Richardson Age: 75 yrs Sex: Male : 1945 Arrival Date: 09/22/2020 Time: 16:52 Bed 14 Private MD: [facility] ED Physician Ricardo Luna HPI: 09/22 18:41 This 75 yrs old Male presents to ER via Ambulatory with complaints of Rectal pkl Bleeding. 19:00 The patient presents to the emergency department with bleeding from the rectum/anus, pkl that is mild. Onset: The symptoms/episode began/occurred 3 month(s) ago. Associate signs and symptoms: Pertinent positives: chest and epigastric pain. The patient has experienced a previous episode, approximately 5 months ago, Patient had colonoscopy done in [address] Peñaloza, was told colonoscopy was normal. Historical: - Allergies: 17:22 No Known Allergies; em - PMHx: 17:22 Hypertension; em - PSHx: 17:22 Cholecystectomy; colonoscopy; left leg surgery; em - Immunization history:: Adult Immunizations up to date. - Social history:: Smoking status: Patient denies any tobacco usage or history of. ROS: 19:00 Eyes: Negative for injury, pain, redness, and discharge, ENT: Negative for injury, pkl pain, and discharge, Neck: Negative for injury, pain, and swelling. 19:00 Cardiovascular: Positive for chest pain. 19:00 Respiratory: Negative for cough, shortness of breath. 19:00 Abdomen/GI: Positive for abdominal pain, rectal bleeding, of the epigastric region. 19:00 Back: Negative for acute changes. 19:00 : Negative for urinary symptoms. 19:00 MS/extremity: Negative for acute changes. 19:00 Skin: Negative for rash. 19:00 Neuro: Negative for altered mental status. Exam: 19:00 Head/Face: Normocephalic, atraumatic. Eyes: Pupils equal round and reactive to light, pkl extra-ocular motions intact. Lids and lashes normal. Conjunctiva and sclera are non-icteric and not injected. Cornea within normal limits. Periorbital areas with no swelling, redness, or edema. ENT: Nares patent. No nasal discharge, no septal abnormalities noted. Tympanic membranes are normal and external auditory canals are clear. Oropharynx with no redness, swelling, or masses, exudates, or evidence of obstruction, uvula midline. Mucous membranes moist. Neck: Trachea midline, no thyromegaly or masses palpated, and no cervical lymphadenopathy. Supple, full range of motion without nuchal rigidity, or vertebral point tenderness. No Meningismus. Chest/axilla: Normal chest wall appearance and motion. Nontender with no deformity. No lesions are appreciated. Cardiovascular: Regular rate and rhythm with a normal S1 and S2. No gallops, murmurs, or rubs. Normal PMI, no JVD. No pulse deficits. Respiratory: Lungs have equal breath sounds bilaterally, clear to auscultation and percussion. No rales, rhonchi or wheezes noted. No increased work of breathing, no retractions or nasal flaring. 19:00 Abdomen/GI: Bowel sounds: normal, Palpation: soft, mild abdominal tenderness, in the epigastric area. 19:00 Back: Exam negative for acute changes. 19:00 : Exam negative for acute changes. 19:00 Musculoskeletal/extremity: Exam is negative for acute changes. 19:00 Skin: Exam negative for rash. 19:00 Neuro: Orientation: is normal, Mentation: is normal, Cranial nerves: grossly normal, Motor: is normal. 19:09 Abdomen/GI: Rectal exam: Stool: guaiac positive. pkl Vital Signs: 17:17 BP 157 / 81; Pulse 63; Resp 18; Temp 98.1(O); Pulse Ox 98% on R/A; Weight 104.78 kg; em Height 5 ft. 5 in. (165.10 cm); Pain 2/10; 20:13 BP 144 / 82; Pulse 63; Resp 16; Pulse Ox 96% on R/A; jm8 22:01 BP 148 / 77; Pulse 62; Resp 17; Pulse Ox 96% on R/A; jm8 17:17 Body Mass Index 38.44 (104.78 kg, 165.10 cm) em MDM: 18:41 Patient medically screened. pkl 21:35 Data reviewed: vital signs, nurses notes, lab test result(s), EKG, radiologic studies, pkl CT scan, plain films. ED course: Discussed lab. EKG and CT Scan results. Advised to follow with Dr. Jh in 2 to 3 days. Patient understood instructions. 09/22 18:57 Order name: Occult Blood--Ancillary bd 09/22 18:58 Order name: Occult Blood--Ancillary; Complete Time: 20:06 EDMS 09/22 18:59 Order name: Basic Metabolic Panel pkl 09/22 18:59 Order name: CBC with Diff pkl 09/22 18:59 Order name: LFT's pkl 09/22 18:59 Order name: Magnesium pkl 09/22 18:59 Order name: NT PRO-BNP; Complete Time: 20:06 pkl 09/22 18:59 Order name: PT-INR; Complete Time: 20:06 pkl 09/22 18:59 Order name: Troponin (emerg Dept Use Only); Complete Time: 20:06 pkl 09/22 18:59 Order name: Lipase; Complete Time: 20:06 pkl 09/22 18:59 Order name: Basic Metabolic Panel; Complete Time: 20:05 EDMS 09/22 18:59 Order name: CBC with Automated Diff; Complete Time: 20:05 EDMS 09/22 18:59 Order name: Liver (Hepatic) Function; Complete Time: 20:05 EDMS 09/22 18:59 Order name: Magnesium; Complete Time: 20:06 EDMS 09/22 18:59 Order name: XRAY Chest (1 view); Complete Time: 20:06 pkl 09/22 18:59 Order name: EKG; Complete Time: 19:00 pkl 09/22 18:59 Order name: Cardiac monitoring; Complete Time: 19:35 pkl 09/22 18:59 Order name: EKG - Nurse/Tech; Complete Time: 19:35 pkl 09/22 18:59 Order name: IV Saline Lock; Complete Time: 19:12 pkl 09/22 18:59 Order name: Labs collected and sent; Complete Time: 19:12 pkl 09/22 18:59 Order name: O2 Per Protocol; Complete Time: 19:12 pkl 09/22 18:59 Order name: O2 Sat Monitoring; Complete Time: 19:12 pkl 09/22 18:59 Order name: CT Abd/Pelvis - IV Contrast Only; Complete Time: 21:33 pkl 09/22 19:11 Order name: Urine Dipstick-Ancillary; Complete Time: 20:05 EDMS Administered Medications: Discontinued: NS 0.9% 1000 ml IV at 125 ml/hr continuous 19:22 Drug: NS 0.9% 1000 ml Route: IV; Rate: 125 ml/hr; Site: right antecubital; 8 22:03 Follow up: Response: No adverse reaction jm8 Disposition: 09/22/20 21:38 Discharged to Home. Impression: Rectal bleeding. Advanced colonic diverticulosis. Chest pain. - Condition is Stable. - Medication Reconciliation Form, Thank You Letter, Antibiotic Education, Prescription Opioid Use form. - Follow up: Don Peñaloza MD; When: 2 - 3 days; Reason: Re-evaluation by your physician. - Problem is new. - Symptoms have improved. Signatures: Dispatcher [employer] EDRicardo Dee MD MD pkl Fredi Kaur, RN RN Pancho Hensley RN RN jm8 Corrections: (The following items were deleted from the chart) 22:03 21:38 09/22/2020 21:38 Discharged to Home. Impression: Rectal bleeding. Advanced jm8 colonic diverticulosis. Chest pain. Condition is Stable. Forms are Medication Reconciliation Form, Thank You Letter, Antibiotic Education, Prescription Opioid Use. Follow up: Don Peñaloza; When: 2 - 3 days; Reason: Re-evaluation by your physician. Problem is new. Symptoms have improved. pkl
[2020-09-22 22:18] VITALS: TEMP 98.1
[2020-09-22 22:20] VITALS: O2SAT 96
[2020-09-22 22:21] VITALS: BP 148/77
== END 2020-09-22 22:03 | disposition home or self-care (01) ==
LOC: ER 16:49
DX: K57.30 Diverticulosis of large intestine without perforation or abscess without bleeding (principal); R07.9 Chest pain, unspecified; I10 Essential (primary) hypertension
CPT/HCPCS: 85025; 80048; 36415; 83735; 85610; 80076; 82272; 81003; 84484; 83690; 83880; 74177; 71045; Q9967; J7030; 93005; 99285

== ENCOUNTER 2020-10-18 13:00 | Emergency (ER) | payer OTHER ==
--- OUTSIDE RECORDS SUMMARY | 2020-10-18 13:04 | XMS REPORT | Continuity of Care Document ---
:1945 Author Organization [facility] Address 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 Clinician (SIG) Name Name Losartan Losartan Yes Javi [address] [facility] Potassium Potassium 9-09 [facility] Trazodone Trazodone 2019- Yes Javi [address] [facility] HCl HCl 5-06 [facility] Acetaminoph Acetaminoph 2019-0 Yes Javi [address] [facility] en-Codeine en-Codeine 9-30 [facility] methylPREDN Yes Knee pain, 40mg Hong ISolone 7- acute, left Metho di acetate 11:00: st (DEPO-MEDRO 00 L) injection 40 mg lidocaine Yes Knee pain, 10mg Ho joan (XYLOCAINE) 12-13 acute, left M ethodi 10 [...] Future Scheduled 2020-12-26 INFLUENZA VACCINE [place] [facility] 00:00:00 [code = INFLUENZA VACCINE] Future Scheduled 2012 65+ PNEUMOCOCCAL [place] [facility]anda[facility] Test 00:00:00 VACCINE (1 of 1 - PPSV23) [code = 65+ PNEUMOCOCCAL VACCINE (1 of 1 - PPSV23)] Future Scheduled 1997 SHINGLES VACCINES (#1) [place] [facility] Test 00:00:00 [code = SHINGLES VACCINES (#1)] Future Scheduled 1997 COLONOSCOPY SCREENING Ho joan Mandaen Test 00:00:00 [code = COLONOSCOPY SCREENING] Future Scheduled 1959 COVID-19 VACCINE (1) Marissajulius lopez Mandaen Test 00:00:00 [code = COVID-19 VACCINE (1)] Encounters Start End Encounter Admission Attending Care Care Encounter Source Date/Time Date/Time Type Type Clinicians Facility Department ID 2020-09-22 2020-09-22 Outpatient [facility] [id number] [facility] 2020-08-04 2020-08-04 Outpatient [facility] [id number] [facility] 2020-06-26 2020-06-26 Outpatient [facility] [id number] [facility] 2020-04-14 2020-04-14 Outpatient [facility] [id number] [facility] 2020-03-03 2020-03-03 Outpatient [facility] [id number] [facility] 2020-02-18 2020-02-18 Outpatient [facility] [id number] [facility] 2020-02-04 2020-02-04 [facility] [id number] [facility] 14:50:00 14:50:00 [facility] [employer] [facility] - [facility] 2020-01-01 2020-01-01 [facility] [id number] [facility] 09[facility]15:00 09:15:00 t [employer] - [facility] 2019-10-01 2019-10-01 [facility] [id number] [facility] 09:00:00 09:00:00 [facility] [employer] - [facility] 2019-10-01 2019-10-01 [facility] [id number] [facility] 08:30:00 08:30:00 [employer] [facility] Out[facility] Clin[facility] 2019-09-29 2019-09-29 [facility] [id number] [facility] 13:21:00 13:21:00 t [employer] - [facility] Medicine Medicine Outpati ent Clinics 2019-07-01 2019-07-01 [facility] [id number] [facility] 08:30:00 08:30:00 [place] [employer] - Drive [facility] Medicine l Medicine Outpati ent Clinics 2019-03-31 2019-03-31 [facility] [id number] [facility] 11:30:00 11:30:00 t [place] [employer] - Drive [facility] Medicine Outpati ent Clinics 2019-03-21 2019-03-21 [facility] [id number] [facility] 15:30:00 15:30:00 t [place] [employer] s - Drive [facility] Medicine Outpati ent Clinics 2019-02-24 2019-02-24 [facility] [id number] 10:00:00 10:00:00 t [place] [employer] s - Drive [facility] Medicine Outpati ent Clinics 2018-12-18 2018-12-18 [facility] [id number] [facility] 08:15:00 08:15:00 t [place] [employer] [facility] - Drive [facility] Medicine l Medicine Outpati ent Clinics 2018-12-13 2018-12-13 [facility] [id number] 11:43:00 11:43:00 t [place] [employer] s - Drive [facility] l Medicine Outpati ent Clinics 2018-09-17 2018-09-17 [facility] [id number] [facility] 09:00:00 09:00:00 t [place] [employer] [facility] - Drive [facility] Medicine Medicine Outpati ent Clinics 2018-08-23 2018-08-23 [facility] [id number] [facility] 10:27:00 10:27:00 t [place] [employer] - Drive [facility] Medicine Outpati ent Clinics 2018-08-20 2018-08-20 [facility] [id number] [facility] 10:19:00 10:19:00 t [place] [employer] s - Drive [facility] Medicine Outpati ent Clinics 2018-08-19 2018-08-19 [facility] [id number] [facility] 13:00:00 13:00:00 t [employer] - Drive [facility] Medicine Outpati ent Clinics 2018-08-15 2018-08-15 [facility] [id number] [facility] 11:55:00 11:55:00 t [employer] - Drive [facility] Medicine Outpati ent Clinics 2018-08-13 2018-08-13 [facility] [id number] [facility] 15:21:00 15:21:00 t [employer] - Drive [facility] Medicine Outpati ent Clinics 2018-08-13 2018-08-13 [facility] [id number] [facility] 11:15:00 11:15:00 t [employer] - [facility] Medicine Outpati ent Clinics 2018-08-02 2018-08-02 [facility] [id number] [facility] 09:15:00 09:15:00 [employer] - [place] [facility] Medicine Outpati ent Clinics 2017-12-13 2017-12-13 [facility] [id number] [facility] 08:30:00 08:30:00 [employer] - [place] [facility] Medicine Outpati ent Clinics Results This patient has no known results.
[2020-10-18 16:33] LABS: Absolute Lymphocytes (CBC) 1.8 K/uL (0.7-4.9); Basophils % 0.9 % (0-1.3); Hematocrit 35.5 % (39.6-49.0); Lymphocytes % 29.6 % (15.3-44.8); MPV 8.4 fL (7.6-11.3); Protime INR 0.97; RBC Red Blood Cell Count 4.06 M/uL (4.33-5.43)
[2020-10-18 16:46] LABS: ALT/SGPT 21 U/L (12-78); AST/SGOT 17 U/L (15-37); Albumin 3.5 g/dL (3.4-5.0); Alkaline Phosphatase 77 U/L (45-117); BUN Blood Urea Nitrogen 18 mg/dL (7-18); Bicarbonate 28 mmol/L (21-32); Bilirubin Direct 0.2 mg/dL (0-0.2); Glucose Level 123 mg/dL (74-106); Lipase 116 U/L (73-393); Protein, Total 7.1 g/dL (6.4-8.2); Sodium Level 141 mmol/L (136-145)
--- NOTE | 2020-10-18 17:46 | RAD REPORT ---
EXAM DESCRIPTION: CTAbdomen Pelvis W Contrast - 10/18/2020 5:23 pm CLINICAL HISTORY: Abdominal pain. GI BLEED COMPARISON: Abdomen Pelvis W Contrast dated 09/22/2020; CT ABD PELVIS W CONTRAST dated 10/07/2008 TECHNIQUE: Biphasic CT imaging of the abdomen and pelvis was performed with 100 ml non-ionic IV cont rast. All CT scans are performed using dose optimization technique as appropriate and may include automated exposure control or mA/KV adjustment according to patient size. FINDINGS: The lung bases are clear. Benign liver cysts noted. No aggressive liver lesion or biliary dilatation. Cholecystectomy. The sple en, pancreas, adrenal glands and kidneys are within normal limits. No bowel obstruction, free air, free fluid or abscess. Advanced colonic diverticulosis is present wit hout diverticulitis. The appendix is normal. No evidence of significant lymphadenopathy. No suspicious bony findings. Small fat containing left inguinal hernia. IMPRESSION: Advanced colonic diverticulosis is present.
--- NOTE | 2020-10-18 18:40 | EDPHYS ---
Physician Documentation [facility] Name: Donovan Richardson Age: 75 yrs Sex: Male : 1945 Arrival Date: 10/18/2020 Time: 13:02 Bed 17 Private MD: [facility] ED Physician Jasiel Adams HPI: 10/18 16:03 This 75 yrs old Male presents to ER via Ambulatory with complaints of Rectal pm1 Bleeding - banding 10/15. 16:03 The patient presents to the emergency department with bleeding from the rectum/anus. pm1 Onset: The symptoms/episode began/occurred this morning. Context: the patient has a known history of hemorrhoids. Modifying factors: The symptoms are aggravated by bowel movement. Associate signs and symptoms: Pertinent negatives: abdominal pain, constipation, fever. The patient has experienced similar episodes in the past, multiple times. The patient has been recently seen by a physician: Dr. Peñaloza. Banding to internal hemorrhoids on Sunday. Patient reports normal bowel movement and then some bright red blood came out afterwards. Historical: - Allergies: 13:37 No Known Allergies; ca1 - Home Meds: 13:37 aspirin 81 mg Oral TbEC 1 tab once daily [Active]; atorvastatin 20 mg Oral tab 1 tab ca1 once daily [Active]; - PMHx: 13:37 Hypertension; ca1 - PSHx: 13:37 Cholecystectomy; colonoscopy; left leg surgery; ca1 - Immunization history:: Client reports receiving the 2nd dose of the Covid vaccine, Client reports receiving the 1st dose of the Covid vaccine, Pneumococcal vaccine is up to date, Flu vaccine is up to date. - Social history:: Smoking status: Patient denies any tobacco usage or history of. ROS: 16:03 Constitutional: Negative for fever, chills, and weight loss, Cardiovascular: Negative pm1 for chest pain, palpitations, and edema, Respiratory: Negative for shortness of breath, cough, wheezing, and pleuritic chest pain. 16:03 Back: Negative for injury and pain, : Negative for injury, bleeding, discharge, and swelling, MS/Extremity: Negative for injury and deformity, Skin: Negative for injury, rash, and discoloration, Neuro: Negative for headache, weakness, numbness, tingling, and seizure. 16:03 Abdomen/GI: Positive for rectal bleeding, Negative for abdominal pain, nausea, vomiting, and diarrhea, black/tarry stool, rectal pain. Exam: 16:03 Constitutional: This is a well developed, well nourished patient who is awake, alert, pm1 and in no acute distress. Head/Face: Normocephalic, atraumatic. 16:03 Abdomen/GI: Soft, non-tender, with normal bowel sounds. No distension or tympany. No guarding or rebound. No evidence of tenderness throughout. Back: No spinal tenderness. No costovertebral tenderness. Full range of motion. Skin: Warm, dry with normal turgor. Normal color with no rashes, no lesions, and no evidence of cellulitis. MS/ Extremity: Pulses equal, no cyanosis. Neurovascular intact. Full, normal range of motion. 16:03 ENT: Mouth: Lips: normal, moist, Oral mucosa: normal, pink and intact, moist. 16:03 Cardiovascular: Exam negative for acute changes, Rate: normal, Rhythm: regular, Pulses: no pulse deficits are appreciated. 16:03 Cardiovascular: Heart sounds: normal. 16:03 Respiratory: Exam negative for acute changes, respiratory distress, shortness of breath, Breath sounds: are clear throughout. 16:03 Neuro: Exam negative for acute changes, Orientation: is normal, Mentation: is normal, Motor: is normal, moves all fours, Sensation: is normal, no obvious gross deficits. 18:16 Abdomen/GI: Rectal exam: rectal tone normal, Stool: brown, specks of bright red blood, pm1 hemorrhoid(s), external, without bleeding, without inflammation, without thrombosis, without pain, Kenroy MYERS. Vital Signs: 13:34 BP 124 / 74; Pulse 74; Resp 16; Temp 97.6(TE); Pulse Ox 98% on R/A; Weight 104.78 kg ca1 (R); Height 5 ft. 5 in. (165.10 cm) (R); Pain 0/10; 15:19 BP 158 / 74; Pulse 72; Resp 16; Temp 97.8(TE); Pulse Ox 98% on R/A; mh5 16:27 BP 143 / 71; Pulse 65; Resp 15; Pulse Ox 96% ; jl7 17:45 BP 143 / 74; Pulse 68; Resp 15; Pulse Ox 98% ; jl7 13:34 Body Mass Index 38.44 (104.78 kg, 165.10 cm) ca1 MDM: 15:32 Patient medically screened. [facility] 18:27 Physician consultation: Don Peñaloza MD was called at 18:27, was contacted at 18:27, pm1 regarding consult, patient's condition, and will see patient in office, in 2-3 days, would like medications started, stool softener and protofoam. 18:37 Data reviewed: vital signs. Data interpreted: Pulse oximetry: on room air is 96 %. pm1 Interpretation: normal. Counseling: I had a detailed discussion with the patient and/or guardian regarding: the historical points, exam findings, and any diagnostic results supporting the discharge/admit diagnosis, lab results, radiology results, the need for outpatient follow up, for definitive care, a project financial analyst, to return to the emergency department if symptoms worsen or persist or if there are any questions or concerns that arise at home. 10/18 15:38 Order name: Basic Metabolic Panel; Complete Time: 17:09 pm1 10/18 15:38 Order name: CBC with Diff; Complete Time: 17:09 pm1 10/18 15:38 Order name: Hepatic Function; Complete Time: 17:09 pm1 10/18 15:38 Order name: Lipase; Complete Time: 17:09 pm1 10/18 15:38 Order name: PT-INR; Complete Time: 17:09 pm1 10/18 15:38 Order name: Ptt, Activated; Complete Time: 17:09 pm1 10/18 15:38 Order name: CT Abd/Pelvis - IV Contrast Only; Complete Time: 17:48 pm1 10/18 15:38 Order name: IV Saline Lock; Complete Time: 16:06 pm1 10/18 15:38 Order name: Labs collected and sent; Complete Time: 16:06 pm1 Administered Medications: No medications were administered Disposition: 10/19 10:03 Co-signature as Attending Physician, Jasiel Adams MD I agree with the assessment and [facility] plan of care. Disposition: 10/18/20 18:39 Discharged to Home. Impression: Rectal bleeding, Advanced colonic diverticulosis. - Condition is Stable. - Discharge Instructions: Diverticulosis, Rectal Bleeding. - Prescriptions for pramoxine - apply 1 application by TOPICAL route Up to 5 times/day in AM, PM, \T\ after deficiation As needed; 1 tube. Colace 100 mg Oral Tablet - take 1 tablet by ORAL route every 12 hours; 14 tablet. - Medication Reconciliation Form, Thank You Letter, Antibiotic Education, Prescription Opioid Use form. - Follow up: Emergency Department; When: As needed; Reason: Worsening of condition. Follow up: Don Peñaloza MD; When: 2 - 3 days; Reason: Recheck today's complaints, Continuance of care, Re-evaluation by your physician. - Problem is new. - Symptoms have improved. Signatures: Dispatcher [employer] EDMS Jasiel Adams MD MD cha Marinas, Patrick, KNITTING MACHINE FIXER HEAD KNITTING MACHINE FIXER HEAD pm1 Kenroy Tavera, RN RN jl7 Mikaela Ball RN RN ca1 Corrections: (The following items were deleted from the chart) 10/18 18:40 18:39 10/18/2020 18:39 Discharged to Home. Impression: Rectal bleeding; Hemorrhoids. pm1 Condition is Stable. Forms are Medication Reconciliation Form, Thank You Letter, Antibiotic Education, Prescription Opioid Use. Follow up: Emergency Department; When: As needed; Reason: Worsening of condition. Follow up: Don Peñaloza; When: 2 - 3 days; Reason: Recheck today's complaints, Continuance of care, Re-evaluation by your physician. Problem is new. Symptoms have improved. pm1 19:01 18:40 10/18/2020 18:39 Discharged to Home. Impression: Rectal bleeding; Advanced jl7 colonic diverticulosis. Condition is Stable. Forms are Medication Reconciliation Form, Thank You Letter, Antibiotic Education, Prescription Opioid Use. Follow up: Emergency Department; When: As needed; Reason: Worsening of condition. Follow up: Don Peñaloza; When: 2 - 3 days; Reason: Recheck today's complaints, Continuance of care, Re-evaluation by your physician. Problem is new. Symptoms have improved. pm1
--- NOTE | 2020-10-18 18:40 | ER ---
Nurse's Notes [facility] Name: Donovan Richardson Age: 75 yrs Sex: Male : 1945 Arrival Date: 10/18/2020 Time: 13:02 Bed 17 Private MD: Javi Holman Diagnosis: Rectal bleeding;Advanced colonic diverticulosis Presentation: 10/18 13:34 Chief complaint: Patient states: Had a Hemorrhoid banding 10/15/2020. Been bleeding ca1 since April 2021. But over the weekend, the rectal bleed has increased and more so today. Coronavirus screen: Client denies travel out of the [place] in the last 14 days. At this time, the client does not indicate any symptoms associated with coronavirus-19. Ebola Screen: Patient negative for fever greater than or equal to 101.5 degrees Fahrenheit, and additional compatible Ebola Virus Disease symptoms Patient denies exposure to infectious person. Patient denies travel to an Ebola-affected area in the 21 days before illness onset. No symptoms or risks identified at this time. Initial Sepsis Screen: Does the patient meet any 2 criteria? No. Patient's initial sepsis screen is negative. Does the patient have a suspected source of infection? No. Patient's initial sepsis screen is negative. Risk Assessment: Do you want to hurt yourself or someone else? Patient reports no desire to harm self or others. Onset of symptoms was October 18, 2020. 13:34 Method Of Arrival: Ambulatory ca1 13:34 Acuity: TOMMIE 3 ca1 Historical: - Allergies: 13:37 No Known Allergies; ca1 - Home Meds: 13:37 aspirin 81 mg Oral TbEC 1 tab once daily [Active]; atorvastatin 20 mg Oral tab 1 tab ca1 once daily [Active]; - PMHx: 13:37 Hypertension; ca1 - PSHx: 13:37 Cholecystectomy; colonoscopy; left leg surgery; ca1 - Immunization history:: Client reports receiving the 2nd dose of the Covid vaccine, Client reports receiving the 1st dose of the Covid vaccine, Pneumococcal vaccine is up to date, Flu vaccine is up to date. - Social history:: Smoking status: Patient denies any tobacco usage or history of. Screenin:00 Abuse screen: Denies threats or abuse. Denies injuries from another. Nutritional jl7 screening: No deficits noted. Tuberculosis screening: No symptoms or risk factors identified. Fall Risk IV access (20 points). Total Barron Fall Scale indicates No Risk (0-24 pts). Assessment: 15:30 General: Appears in no apparent distress. uncomfortable, Behavior is calm, cooperative, jl7 appropriate for age. Pain: Denies pain. Neuro: Level of Consciousness is awake, alert, obeys commands, Oriented to person, place, time, situation. Cardiovascular: Patient's skin is warm and dry. Respiratory: Airway is patent Respiratory effort is even, unlabored, Respiratory pattern is regular, symmetrical. GI: Reports rectal bleeding. Derm: Skin is pink, warm \T\ dry. 16:30 Reassessment: Patient appears in no apparent distress at this time. No changes from jl7 previously documented assessment. Patient and/or family updated on plan of care and expected duration. Pain level reassessed. Patient is alert, oriented x 3, equal unlabored respirations, skin warm/dry/pink. 17:30 Reassessment: Patient appears in no apparent distress at this time. No changes from jl7 previously documented assessment. Patient and/or family updated on plan of care and expected duration. Pain level reassessed. Patient is alert, oriented x 3, equal unlabored respirations, skin warm/dry/pink. 18:30 Reassessment: Patient appears in no apparent distress at this time. No changes from jl7 previously documented assessment. Patient and/or family updated on plan of care and expected duration. Pain level reassessed. Patient is alert, oriented x 3, equal unlabored respirations, skin warm/dry/pink. Vital Signs: 13:34 BP 124 / 74; Pulse 74; Resp 16; Temp 97.6(TE); Pulse Ox 98% on R/A; Weight 104.78 kg ca1 (R); Height 5 ft. 5 in. (165.10 cm) (R); Pain 0/10; 15:19 BP 158 / 74; Pulse 72; Resp 16; Temp 97.8(TE); Pulse Ox 98% on R/A; mh5 16:27 BP 143 / 71; Pulse 65; Resp 15; Pulse Ox 96% ; jl7 17:45 BP 143 / 74; Pulse 68; Resp 15; Pulse Ox 98% ; jl7 13:34 Body Mass Index 38.44 (104.78 kg, 165.10 cm) ca1 ED Course: 13:02 Patient arrived in ED. as 13:02 Javi Holman DO is Private Physician. as 13:36 Triage completed. ca1 13:37 Arm band placed on right wrist. ca1 15:24 Patient has correct armband on for positive identification. Bed in low position. Call 5 light in reach. Side rails up X 1. Adult w/ patient. Pulse ox on. NIBP on. 15:27 Nadir Neal NP is PHCP. pm1 15:27 Jasiel Adams MD is Attending Physician. pm1 15:28 Kenroy Tavera, LUCIA is Primary Nurse. jl7 15:50 Initial lab(s) drawn, by me, sent to lab. Inserted saline lock: 20 gauge in right jl7 antecubital area, using aseptic technique. Blood collected. 17:23 CT Abd/Pelvis - IV Contrast Only In Process Unspecified. EDMS 18:38 Don Peñaloza MD is Referral Physician. pm1 19:00 No provider procedures requiring assistance completed. IV discontinued, intact, jl7 bleeding controlled, No redness/swelling at site. Pressure dressing applied. Administered Medications: No medications were administered Outcome: 18:39 Discharge ordered by . pm1 19:00 Discharged to home ambulatory. jl7 19:00 Condition: stable 19:00 Discharge instructions given to patient, Instructed on discharge instructions, follow up and referral plans. medication usage, Demonstrated understanding of instructions, follow-up care, medications, Prescriptions given X 2. 19:01 Patient left the ED. jl7 Signatures: Dispatcher [employer] EDWI Jeni Voss as Nadir Neal NP HYDRAULIC CORRUGATING MACHINE OPERATOR pm1 Molly Voss [facility] Kenroy Tavera, ULCIA RN 7 Mikaela Ball RN RN ca1 Corrections: (The following items were deleted from the chart) 15:25 15:19 BP 164 / 82; Pulse 72bpm; Resp 16bpm; Pulse Ox 98% RA; Temp 97.8F Temporal; mh5 mh5
[2020-10-18 20:12] VITALS: TEMP 97.8
[2020-10-18 20:16] VITALS: BP 143/74; O2SAT 98
== END 2020-10-18 19:01 | disposition home or self-care (01) ==
LOC: ER 13:00
DX: K57.30 Diverticulosis of large intestine without perforation or abscess without bleeding (principal); I10 Essential (primary) hypertension; Z98.890 Other specified postprocedural states; Z79.82 Long term (current) use of aspirin
CPT/HCPCS: 85025; 80048; 36415; 85610; 80076; 85730; 83690; 74177; Q9967; 99284

== ENCOUNTER 2020-11-10 08:16 | Day surgery (SDC) | payer OTHER ==
[2020-11-09 09:35] LABS: Absolute Lymphocytes (CBC) 1.9 K/uL (0.7-4.9); Basophils % 0.8 % (0-1.3); Hematocrit 35.2 % (39.6-49.0); Lymphocytes % 33.6 % (15.3-44.8); MPV 7.6 fL (7.6-11.3); RBC Red Blood Cell Count 4.13 M/uL (4.33-5.43)
[2020-11-09 09:47] LABS: BUN Blood Urea Nitrogen 15 mg/dL (7-18); Bicarbonate 27 mmol/L (21-32); Glucose Level 100 mg/dL (74-106); Potassium 4.6 mmol/L (3.5-5.1); Sodium Level 140 mmol/L (136-145)
[2020-11-10] MEDS ORDERED: Ringers Lactate 1,000 ML IV ONE (08:55)
[2020-11-10] MEDS ORDERED: propofoL 200 MG/20 ML VIAL IV ONE (09:42)
[2020-11-10] MEDS ORDERED: FENTANYL CITR 100 MCG/2 ML ONE (09:42)
[2020-11-10] MEDS ORDERED: dexAMETHasone 10 MG/ML VIAL ONE (09:42)
[2020-11-10] MEDS ORDERED: MIDAZOLAM HCL 2 MG/2 ML INJ ONE (09:42)
[2020-11-10] MEDS ORDERED: LIDOCAINE 2% MPF 5 ML VIAL ONE (09:43)
[2020-11-10] MEDS ORDERED: ROCURONIUM 50 MG/5 ML VIAL IV ONE (09:43)
[2020-11-10] MEDS ORDERED: CELECOXIB 100 MG CAPSULE PO ONE (09:50)
[2020-11-10] MEDS ORDERED: ACETAMINOPHEN 500 MG TAB PO ONE (09:50)
[2020-11-10] MEDS: CEFAZOLIN/SWI 1gm 1 GM/10 ML SYR ONE ×2 (10:01→10:10)
[2020-11-10] MEDS ORDERED: CELECOXIB 100 MG CAPSULE ONE (10:11)
[2020-11-10] MEDS ORDERED: ACETAMINOPHEN 500 MG TAB ONE (10:11)
--- NOTE | 2020-11-10 10:46 | P.BOP ---
Preoperative diagnosis: incarcerated tender left inguinal hernia Postoperative diagnosis: same Primary procedure: Laparoscopic repair incarcerated tender left inguinal hernia with mesh Manager Valuation: KORIN GRIGGS (SENIOR PENSIONS ADMINISTRATOR) Estimated blood loss: <10cc Specimen: none Findings: as above Anesthesia: General Complications: None Implants: 3d mesh Transferred to: Recovery Room Condition: Good
[2020-11-10] MEDS ORDERED: KETOROLAC 30 MG/ML INJ ONE (10:57)
[2020-11-10] MEDS ORDERED: ONDANSETRON 4 MG/2 ML VIAL ONE (11:30)
[2020-11-10 11:55] VITALS: BP 139/71; TEMP 97.1; O2SAT 100
== END 2020-11-10 12:54 | disposition home or self-care (01) ==
LOC: OR 08:16
PROVIDERS: ATTEND Surgery
PROC: 0YU64JZ Supplement Left Inguinal Region with Synthetic Substitute, Percutaneous Endoscopic Approach (ICD-10-PCS; principal; 2020-11-10 10:45)
DX: K40.30 Unilateral inguinal hernia, with obstruction, without gangrene, not specified as recurrent (principal); Z20.822 Contact with and (suspected) exposure to COVID-19
CPT/HCPCS: 85025; 80048; 36415; 49650; J2704; J2250; J3010; J1100; J0690; J7120; J2405

== ENCOUNTER 2022-12-08 19:13 | Emergency (ER) | payer OTHER ==
--- OUTSIDE RECORDS SUMMARY | 2022-12-08 19:35 | XMS REPORT | Continuity of Care Document ---
:1945 Author Organization [facility] t Address [address] [facility]. [address]. [address] [place] [address] Care Team Providers Name Role Phone RADHA HOLMAN Primary Care Physician Unavailable [place] Javi Hugh Attending Clinician Unavailable MINDY ASKEW Attending Clinician Unavailable Mindy Askew MD Attending Clinician [phone] Fellow, Pulmonary Attending Clinician Unavailable Testing, [facility] Pulmonary Function Attending Clinician UnavailMadalyn Mota MD Attending Clinician MADALYN ANAYA Attending Clinician Unavailable True Chung MD Attending Clinician TRUE CHUNG Attending Clinician Unavailable TRUE CHUNG Attending Clinician Unavailable Karen De La Rosa MD Attending Clinician JOON HAYES Attending Clinician Unavailable JOON HAYES Attending Clinician Unavailable Joon Hayes DO Attending Clinician MINDY ASKEW Admitting Clinician Unavailable JOON HAYES Admitting Clinician Unavailable Payers Payer Name Policy Type Policy Number Effective Date Expiration Date S [facility] [id number] 2021 [employer] [place] 00:00:00 PPO [facility] HealthSelect 1 [id number] 2021 Common TRS/ERS MCR PPO 00:00:00 [facility] [id number] Common [facility] [id number] Common [facility] [id number] [facility] [id number] Common [facility] [id number] [facility] Problems Condition Condition Condition Status Onset Resolution Last Treating Co mments Source Name Details Category Date Date Treatment Clinician Date 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 [id number] Low back Problem Comm on pain [facility] Osteoarthr Osteoarthr Problem C [facility] itis of itis of [facility] knee knee, [facility] unilateral [facility] [id number] Arthritis Problem Co mmon [id number] of left [facility] knee [facility] Liver cyst Liver cyst Problem C [facility] [id number] Pulmonary Problem Com mon nodule, [facility] right [facility] [id number] Body mass Problem Com mon index [facility] [BMI] - [facility] 40.0-44.9, [facility] [id number] Morbid Problem Commo n 9104 (severe) [facility] obesity - [facility] due to [facility] Family Family Problem Common history of history of Sp [place] ischemic cardiac [facility] heart disorder [facility] External External Problem Commo n hemorrhoid hemorrhoid Sp annette s [facility] [id number] Diverticul Problem Comm on osis of [facility] large [facility] intestine [facility] perforatio Medica l n or Center abscess with bleeding [id number] Other Problem Common chronic [facility] pain [facility] Essential Benign Problem Common hypertensi essential Spi rit on HTN [facility] [id number] Insomnia, Problem Com mon unspecifie Spirit d type [facility] Hypertrigl Hypertrigl Problem C ommon yceridemia yceridemia Sp annette [facility] Polyp Colon Problem Common colon polyp [facility] [id number] Sciatica Problem Commo n of left [facility] side [facility] [id number] Adult BMI Problem Com mon 37.0-37.9 Spirit kg/sq [facility] [id number] Hypocalcem Problem Comm on ia [facility] Allergies, Adverse Reactions, Alerts Allergy Allergy Status Severity Reaction(s) Onset Inactive Treating Comm ents Source Name Type Date Date Clinician NO KNOWN Drug Active Univers ALLERGIE Class ity of S [facility] Social History Social Habit Start Date Stop Date Quantity Comments Source Gender identity [facility] Sexual orientation [facility] Exposure to 2022-10-10 2022-10-20 Not sure [facility] SARS-CoV-2 (event) 00:00:00 08:09:00 [facility] Tobacco use and 2022-10-20 2022-10-20 Smokeless Universit y of exposure 00:00:00 00:00:00 tobacco non-user [facility] Branch Cigarettes smoked 2022-10-20 2022-10-20 [facility] ity of current (pack per 00:00:00 00:00:00 [facility] ) - Reported Branch Cigarette 2022-10-20 2022-10-20 University of pack-years 00:00:00 00:00:00 [facility] History of Social 2016-11-27 2016-11-[address] function 00:00:00 00:00:00 Hospital History of tobacco 1986-11-29 Passive smoker Un iversity of use 00:00:00 [facility] Sex Ass[birth year] [facility] 00:[facility] Smoking Status Start Date Stop Date Source Ex-smoker 2022-10-20 00:00:00 2022-10-20 00:00:[address] [facility] Never Smoker Common [facility] Medications Ordered Filled Start Stop Current Ordering Indication Dosage Frequency Signature Comments Components Source Medication Medication Date Date Medication? Clinician (SIG) Name Name methylPREDN methylPREDN 2021- No QD methylPRED ISolone 4 ISolone 4 12-29 NISolone 4 MG MG 00:00: 00:00 MG 00 :00 methylPREDN methylPREDN 0 2021- No QD methylPRED ISolone 4 ISolone 4 12-29- NISolone 4 MG MG 00:00: 00:00 MG 00 :00 methylPREDN methylPREDN 2021-0 2021- No QD methylPRED ISolone 4 ISolone 4 12-29- NISolone 4 MG MG 00:00: 00:00 MG 00 :00 Ascorbic 2021-0 Yes Take by Univer s Acid 7-05 mouth. ity of (VITAMIN C) 09:44: [place] 500 mg CpSR 16 Medical Branch atorvastati 0 Yes atorvastat Univers n 20 mg 7-05 in 20 mg ity of tablet 09:44: tablet [place] [address] Medical Branch aspirin 2021-0 Yes 81mg Take 81 mg Univ ers (ADULT LOW 7-05 by mouth ity o f DOSE 09:44: daily. [place] ASPIRIN) 81 16 Medical mg EC Branch tablet multivit-mi 2021-0 Yes Take by Uni vers n/ferrous 7-05 mouth. ity of fumarate 09:44: [place] ([facility] 16 Medical VITAMIN Branch ORAL) Ascorbic 2021-0 Yes Take by Univer s Acid 7-05 mouth. ity of (VITAMIN C) 09:44: [place] 500 mg CpSR 16 [facility] Branch atorvastati 0 Yes atorvastat Univers n 20 mg 7-05 in 20 mg ity of tablet 09:44: tablet [place] [address] Medical Branch aspirin 2021-0 Yes 81mg Take 81 mg Univ ers (ADULT LOW 7-05 by mouth ity o f DOSE 09:44: daily. [place] ASPIRIN) 81 16 Medical mg EC Branch tablet multivit-mi 2021-0 Yes Take by Uni vers n/ferrous 7-05 mouth. ity of fumarate 09:44: [place] ([facility] 16 Medical VITAMIN Branch ORAL) Ascorbic 2021-0 Yes Take by Univer s Acid 7-05 mouth. ity of (VITAMIN C) 09:44: [place] 500 mg CpSR 16 [facility] Branch atorvastati 0 Yes atorvastat Univers n 20 mg 7-05 in 20 mg ity of tablet 09:44: tablet [place] [address] Medical Branch aspirin 2021-0 Yes 81mg Take 81 mg Univ ers (ADULT LOW 7-05 by mouth ity o f DOSE 09:44: daily. [place] ASPIRIN) 81 16 Medical mg EC Branch tablet multivit-mi 2021-0 Yes Take by Uni vers n/ferrous 7-05 mouth. ity of fumarate 09:44: [place] ([place] [address] Medical VITAMIN Branch ORAL) Ascorbic 0 Yes Take by Univer s Acid 7-05 mouth. ity of (VITAMIN C) 09:44: [place] 500 mg CpSR 16 Medical Branch atorvastati 0 Yes atorvastat Univers n 20 mg 7-05 in 20 mg ity of tablet 09:44: tablet [address] Branch aspirin 2021-0 Yes 81mg Take 81 mg Univ ers (ADULT LOW 7-05 by mouth ity o f DOSE 09:44: daily. [place] ASPIRIN) 81 16 Medical mg EC Branch tablet multivit-mi 0 Yes Take by Uni vers n/ferrous 7-05 mouth. ity of fumarate 09:44: [place] ([place] [address] Medical VITAMIN Branch ORAL) Ascorbic 0 Yes Take by Univer s Acid 7-05 mouth. ity of (VITAMIN C) 09:44: [place] 500 mg CpSR 16 Medical Branch atorvastati 0 Yes atorvastat Univers n 20 mg 7-05 in 20 mg ity of tablet 09:44: tablet [address] Branch aspirin 2021-0 Yes 81mg Take 81 mg Univ ers (ADULT LOW 7-05 by mouth ity o f DOSE 09:44: daily. [place] ASPIRIN) 81 16 Medical mg EC Branch tablet multivit-mi 0 Yes Take by Uni vers n/ferrous 7-05 mouth. ity of fumarate 09:44: [place] ([place] [address] Medical VITAMIN Branch ORAL) Ascorbic 2021-0 Yes Take by Univer s Acid 7-05 mouth. ity of (VITAMIN C) 09:44: [place] 500 mg CpSR 16 Medical Branch atorvastati 0 Yes atorvastat Univers n 20 mg 7-05 in 20 mg ity of tablet 09:44: tablet [place] [address] Medical Branch aspirin 2021-0 Yes 81mg Take 81 mg Univ ers (ADULT LOW 7-05 by mouth ity o f DOSE 09:44: daily. [place] ASPIRIN) 81 16 Medical mg EC Branch tablet multivit-mi 2021-0 Yes Take by Uni vers n/ferrous 7-05 mouth. ity of fumarate 09:44: [place] (MULTI 16 Medical VITAMIN Branch ORAL) Ascorbic 2021-0 Yes Take by Univer s Acid 7-05 mouth. ity of (VITAMIN C) 09:44: [place] 500 mg CpSR 16 Medical Branch atorvastati 2021-0 Yes atorvastat Univers n 20 mg 7-05 in 20 mg ity of tablet 09:44: tablet [place] 16 Medical Branch aspirin 2021-0 Yes 81mg Take 81 mg Univ ers (ADULT LOW 7-05 by mouth ity o f DOSE 09:44: daily. [place] ASPIRIN) 81 16 Medical mg EC Branch tablet multivit-mi 2021-0 Yes Take by Uni vers n/ferrous 7-05 mouth. ity of fumarate 09:44: [place] ([facility] 16 Medical VITAMIN Branch ORAL) Ascorbic 2021-0 Yes Take by Univer s Acid 7-05 mouth. ity of (VITAMIN C) 09:44: [place] 500 mg CpSR 16 Medical Branch atorvastati 2021-0 Yes atorvastat Univers n 20 mg 7-05 in 20 mg ity of tablet 09:44: tablet [place] 16 Medical Branch aspirin 2021-0 Yes 81mg Take 81 mg Univ ers (ADULT LOW 7-05 by mouth ity o f DOSE 09:44: daily. [place] ASPIRIN) 81 16 Medical mg EC Branch tablet multivit-mi 2021-0 Yes Take by Uni vers n/ferrous 7-05 mouth. ity of fumarate 09:44: [place] (MULTI 16 Medical VITAMIN Branch ORAL) Ascorbic 2021-0 Yes Take by Univer s Acid 7-05 mouth. ity of (VITAMIN C) 09:44: [place] 500 mg CpSR 16 Medical Branch atorvastati 2021-0 Yes atorvastat Univers n 20 mg 7-05 in 20 mg ity of tablet 09:44: tablet [place] 16 Medical Branch aspirin 2021-0 Yes 81mg Take 81 mg Univ ers (ADULT LOW 7-05 by mouth ity o f DOSE 09:44: daily. [place] ASPIRIN) 81 16 Medical mg EC Branch tablet multivit-mi 2021-0 Yes Take by Uni vers n/ferrous 7-05 mouth. ity of fumarate 09:44: [place] (MULTI 16 Medical VITAMIN Branch ORAL) Ascorbic 0 Yes Take by Univer s Acid 7-05 mouth. ity of (VITAMIN C) 09:44: [place] 500 mg CpSR 16 Medical Branch atorvastati 0 Yes atorvastat Univers n 20 mg 7-05 in 20 mg ity of tablet 09:44: tablet [address] Branch aspirin 2021-0 Yes 81mg Take 81 mg Univ ers (ADULT LOW 7-05 by mouth ity o f DOSE 09:44: daily. [place] ASPIRIN) 81 16 Medical mg EC Branch tablet multivit-mi 0 Yes Take by Uni vers n/ferrous 7-05 mouth. ity of fumarate 09:44: [place] ([place] [address] Medical VITAMIN Branch ORAL) Ascorbic Yes Take by Univer s Acid 7-05 mouth. ity of (VITAMIN C) 09:44: [place] 500 mg CpSR 16 [facility] Branch atorvastati 0 Yes atorvastat Univers n 20 mg 7-05 in 20 mg ity of tablet 09:44: tablet [address] aspirin 2021-0 Yes 81mg Take 81 mg Univ ers (ADULT LOW 7-05 by mouth ity o f DOSE 09:44: daily. [place] ASPIRIN) 81 16 Medical mg EC Branch tablet multivit-mi 0 Yes Take by Uni vers n/ferrous 7-05 mouth. ity of fumarate 09:44: [place] ([place] [address] Medical VITAMIN Branch ORAL) Ascorbic Yes Take by Univer s Acid 7-05 mouth. ity of (VITAMIN C) 09:44: [place] [address] [place] [address] Branch atorvastati 0 Yes atorvastat Univers n 20 mg 7-05 in 20 mg ity of tablet 09:44: tablet [address] Branch aspirin 0 Yes 81mg Take 81 mg Univ ers (ADULT LOW 7-05 by mouth ity o f DOSE 09:44: daily. [place] ASPIRIN) 81 16 Medical mg EC Branch tablet multivit-mi 0 Yes Take by Uni vers n/ferrous 7-05 mouth. ity of fumarate 09:44: [place] ([place] [address] Medical VITAMIN Branch ORAL) losartan 50 2021-0 Yes 50mg 50 mg Unive rs mg tablet 7- daily. ity of 00:00: [place] 00 Medical Branch losartan 50 2021-0 Yes 50mg 50 mg Unive rs mg tablet 11-25 daily. ity of 00:00: Medical Branch losartan 50 2021-0 Yes 50mg 50 mg Unive rs mg tablet 11-25 daily. ity of 00:00: Medical Branch losartan 50 2-0 Yes 50mg 50 mg Unive rs mg tablet 11-25 daily. ity of 00:00: Medical Branch losartan 50 2-0 Yes 50mg 50 mg Unive rs mg tablet 11-25 daily. ity of 00:00: Medical Branch losartan 50 2-0 Yes 50mg 50 mg Unive rs mg tablet 11-25 daily. ity of 00:00: [place] [facility] losartan 50 2021-0 Yes 50mg 50 mg Unive rs mg tablet 11-25 daily. ity of 00:00: [place] [facility] losartan 50 2-0 Yes 50mg 50 mg Unive rs mg tablet 11-25 daily. ity of 00:00: [place] [facility] losartan 50 2021-0 Yes 50mg 50 mg Unive rs mg tablet 11-25 daily. ity of 00:00: Medical Branch losartan 50 2-0 Yes 50mg 50 mg Unive rs mg tablet 11-25 daily. ity of 00:00: [place] [facility] losartan 50 2021-0 Yes 50mg 50 mg Unive rs mg tablet 11-25 daily. ity of 00:00: [place] [facility] losartan 50 2-0 Yes 50mg 50 mg Unive rs mg tablet 11-25 daily. ity of 00:00: [place] [facility] Bupivicaine Bupivicaine 2021-0 No Common [place] 3- Spirit 00:00: - [facility] Kenalog Kenalog 2021-0 No 40mg Common (Triamcinol (Triamcinol 3-01 S pirit one) one) 00:00: - [facility] Bupivicaine Bupivicaine 2021-0 No Common [place] 3-01 Spirit 00:00: - [facility] Kenalog Kenalog 2021-0 No 40mg Common (Triamcinol (Triamcinol 3-01 S pirit one) one) 00:00: - [facility] Bupivicaine Bupivicaine 2021-0 No Common [place] 3-01 Spirit 00:00: - [facility]I 00 [facility] Kenalog Kenalog 2021-0 No 40mg Common (Triamcinol (Triamcinol 3-01 S pirit one) one) 00:00: - CHI 00 [facility] Bupivicaine Bupivicaine 2021-0 No Common [place] 3- Spirit 00:00: - CHI 00 [facility] Kenalog Kenalog 2021-0 No 40mg Common (Triamcinol (Triamcinol 3-01 S pirit one) one) 00:00: - CHI 00 [facility] Bupivicaine Bupivicaine 2021-0 No 2.5mg Common [place] 3- Spirit 00:00: - CHI 00 [facility] Kenalog Kenalog 2021-0 No 40mg Common (Triamcinol (Triamcinol 3-01 S pirit one) one) 00:00: - CHI 00 [facility] Bupivicaine Bupivicaine 2021-0 No 2.5mg Common [place] 3- Spirit 00:00: - CHI 00 [facility] Kenalog Kenalog 2021-0 No 40mg Common (Triamcinol (Triamcinol 3-01 S pirit one) one) 00:00: - CHI 00 [facility] Bupivicaine Bupivicaine 2021-0 No 2.5mg Common [place] 3- Spirit 00:00: - CHI 00 [facility] Kenalog Kenalog 2021-0 No 40mg Common (Triamcinol (Triamcinol 3-01 S pirit one) one) 00:00: - CHI 00 [facility] Bupivicaine Bupivicaine 2021-0 No 2.5mg Common [place] 3-01 Spirit 00:00: - CHI 00 [facility] Kenalog Kenalog 2021-0 No 40mg Common (Triamcinol (Triamcinol 3-01 S pirit one) one) 00:00: - CHI 00 [facility] Bupivicaine Bupivicaine 2021-0 No 2.5mg Common [place] 3- Spirit 00:00: - CHI 00 [facility] Kenalog Kenalog 2021-0 No 40mg Common (Triamcinol (Triamcinol 3-01 S pirit one) one) 00:00: - CHI 00 [facility] Bupivicaine Bupivicaine 2021-0 No 2.5mg Common [place] 3- Spirit 00:00: - CHI 00 [facility] Kenalog Kenalog 2021-0 No 40mg Common (Triamcinol (Triamcinol 3-01 S pirit one) one) 00:00: - CHI 00 [facility] Bupivicaine Bupivicaine 2021-0 No 2.5mg Common [place] 3-01 Spirit 00:00: - CHI 00 [facility] [place] Kenalog 2021-0 No 40mg Common (Triamcinol (Triamcinol 3-01 S pirit one) one) 00:00: - CHI 00 [facility] Bupivicaine Bupivicaine 2021-0 No 2.5mg Common [place] 3- Spirit 00:00: - CHI 00 [facility] Kenalog Kenalog 2021-0 No 40mg Common (Triamcinol (Triamcinol 3-01 S pirit one) one) 00:00: - CHI 00 [facility] Bupivicaine Bupivicaine 2021-0 No 2.5mg Common [place] 3- Spirit 00:00: - CHI 00 [facility] Kenalog Kenalog 2021-0 No 40mg Common (Triamcinol (Triamcinol 3-01 S pirit one) one) 00:00: - CHI 00 [facility] Bupivicaine Bupivicaine 2021-0 No 2.5mg Common [place] 3-01 Spirit 00:00: - CHI 00 [facility] Kenalog Kenalog 2021-0 No 40mg Common (Triamcinol (Triamcinol 3-01 S pirit one) one) 00:00: - [facility]I 00 [facility] Bupivicaine Bupivicaine 2-0 No 2.5mg Common [place] 3-01 Spirit 00:00: - CHI 00 [facility] Kenalog Kenalog 2021-0 No 40mg Common (Triamcinol (Triamcinol 3-01 S pirit one) one) 00:00: - [facility] Bupivicaine Bupivicaine 2021-0 No 2.5mg Common [place] 3-01 Spirit 00:00: - [facility] Kenalog Kenalog 0 No 40mg Common (Triamcinol (Triamcinol 3-01 S pirit one) one) 00:00: - [facility] Toradol Toradol 2020-05 No 15mg Common (Ketorolac) (Ketorolac) 0-26 S pirit 00:00: - [facility] Toradol Toradol 2020-05 No 15mg Common (Ketorolac) (Ketorolac) 0-26 S pirit 00:00: - [facility] Toradol Toradol 2020-05 No 15mg Common (Ketorolac) (Ketorolac) 0-26 S pirit 00:00: - [facility] Toradol Toradol 2020-05 No 15mg Common (Ketorolac) (Ketorolac) 0-26 S pirit 00:00: - [facility] Toradol Toradol 2020-05 No 15mg Common (Ketorolac) (Ketorolac) 0-26 S pirit 00:00: - [facility] Toradol Toradol 2020-05 No 15mg Common (Ketorolac) (Ketorolac) 0-26 S pirit 00:00: - [facility] Toradol Toradol 2020-05 No 15mg Common (Ketorolac) (Ketorolac) 0-26 S pirit 00:00: - [facility] Toradol Toradol 2020-05 No 15mg Common (Ketorolac) (Ketorolac) 0-26 S pirit 00:00: - [facility] Toradol Toradol 2020-05 No 15mg Common (Ketorolac) (Ketorolac) 0-26 S pirit 00:00: - [facility] Toradol Toradol 2020-05 No 15mg Common (Ketorolac) (Ketorolac) 0-26 S pirit 00:00: - [facility] Toradol Toradol 2020-05 No 15mg Common (Ketorolac) (Ketorolac) 0-26 S pirit 00:00: - [facility] Toradol Toradol 2020-05 No 15mg Common (Ketorolac) (Ketorolac) 0-26 S pirit 00:00: - [facility] Toradol Toradol 2020-05 No 15mg Common (Ketorolac) (Ketorolac) 0-26 S pirit 00:00: - [facility] Toradol Toradol 2020-05 No 15mg Common (Ketorolac) (Ketorolac) 0-26 S pirit 00:00: - [facility] Toradol Toradol 2020-05 No 15mg Common (Ketorolac) (Ketorolac) 0-26 S pirit 00:00: - [facility] Toradol Toradol 2020-05 No 15mg Common (Ketorolac) (Ketorolac) 0-26 S pirit 00:00: - [facility] Cyclobenzap Cyclobenzap 2020-05- No 1{table QD Cyclobenza rine HCl 5 rine HCl 5 004-20 t_at_be mabel HCl MG MG 00:00: 00:00 dtime_a 5 MG 00 :00 s_neede d} Cyclobenzap Cyclobenzap 2020-05- No 1{table QD Cyclobenza rine HCl 5 rine HCl 5 0-24 t_at_be mabel HCl MG MG 00:00: 00:00 dtime_a 5 MG 00 :00 s_neede d} Cyclobenzap Cyclobenzap 2020-05- No 1{table QD Cyclobenza rine HCl 5 rine HCl 5 0-22 04-24 t_at_be mabel HCl MG MG 00:00: 00:00 dtime_a 5 MG 00 :00 s_neede d} methylPREDN methylPREDN 2020-05- No QD methylPRED ISolone 4 ISolone 4 03-28 NISolone 4 MG MG 00:00: 00:00 MG 00 :00 methylPREDN methylPREDN 2020-05- No QD methylPRED ISolone 4 ISolone 4 0 11- NISolone 4 MG MG 00:00: 00:00 MG 00 :00 Cyclobenzap Cyclobenzap 2020-0 No 1{table QD Cyclobenza rine HCl 5 rine HCl 5 9-09 t_at_be mabel HCl MG MG 00:00: dtime_a 5 MG 00 s_neede d} Cyclobenzap Cyclobenzap 2020-0 No 1{table QD Cyclobenza rine HCl 5 rine HCl 5 9-09 t_at_be mabel HCl MG MG 00:00: dtime_a 5 MG 00 s_neede d} Cyclobenzap Cyclobenzap 2020-0 No 1{table QD Cyclobenza rine HCl 5 rine HCl 5 9-09 t_at_be mabel HCl MG MG 00:00: dtime_a 5 MG 00 s_neede d} Cyclobenzap Cyclobenzap 2020-0 No 1{table QD Cyclobenza rine HCl 5 rine HCl 5 9-09 t_at_be mabel HCl MG MG 00:00: dtime_a 5 MG 00 s_neede d} Cyclobenzap Cyclobenzap 2020-0 No 1{table QD Cyclobenza rine HCl 5 rine HCl 5 9-09 t_at_be mabel HCl MG MG 00:00: dtime_a 5 MG 00 s_neede d} Cyclobenzap Cyclobenzap 2020-0 No 1{table QD Cyclobenza rine HCl 5 rine HCl 5 9-09 t_at_be mabel HCl MG MG 00:00: dtime_a 5 MG 00 s_neede d} Cyclobenzap Cyclobenzap 2020-0 No 1{table QD Cyclobenza rine HCl 5 rine HCl 5 9-09 t_at_be mabel HCl MG MG 00:00: dtime_a 5 MG 00 s_neede d} Cyclobenzap Cyclobenzap 2020-0 No 1{table QD Cyclobenza rine HCl 5 rine HCl 5 9-09 t_at_be mabel HCl MG MG 00:00: dtime_a 5 MG 00 s_neede d} Cyclobenzap Cyclobenzap 2020-0 No 1{table QD Cyclobenza rine HCl 5 rine HCl 5 9-09 t_at_be mabel HCl MG MG 00:00: dtime_a 5 MG 00 s_neede d} Cyclobenzap Cyclobenzap 2020-0 No 1{table QD Cyclobenza rine HCl 5 rine HCl 5 9-09 t_at_be mabel HCl MG MG 00:00: dtime_a 5 MG 00 s_neede d} Kenalog Kenalog 2020-0 No 40mg Common (Triamcinol (Triamcinol 02-03 S pirit one) one) 00:00: - [facility] 00 [facility] Cyclobenzap Cyclobenzap 2020-0 No 1{table QD Cyclobenza rine HCl 5 rine HCl 5 9-09 t_at_be mabel HCl MG MG 00:00: dtime_a 5 MG 00 s_neede d} Kenalog Kenalog 0 No 40mg Common (Triamcinol (Triamcinol 02-03 S pirit one) one) 00:00: - [facility] 00 [facility] Cyclobenzap Cyclobenzap 0 No 1{table QD Cyclobenza rine HCl 5 rine HCl 5 9-09 t_at_be mabel HCl MG MG 00:00: dtime_a 5 MG 00 s_neede d} Kenalog Kenalog 0 No 40mg Common (Triamcinol (Triamcinol 02-03 S pirit one) one) 00:00: - [facility] 00 [facility] Cyclobenzap Cyclobenzap 0 No 1{table QD Cyclobenza rine HCl 5 rine HCl 5 9-09 t_at_be mabel HCl MG MG 00:00: dtime_a 5 MG 00 s_neede d} Kenalog Kenalog 2020-0 No 40mg Common (Triamcinol (Triamcinol 02-03 S pirit one) one) 00:00: - [facility] 00 [facility] Cyclobenzap Cyclobenzap 2020-0 No 1{table QD Cyclobenza rine HCl 5 rine HCl 5 9-09 t_at_be mabel HCl MG MG 00:00: dtime_a 5 MG 00 s_neede d} Kenalog Kenalog 0 No 40mg Common (Triamcinol (Triamcinol 02-03 S pirit one) one) 00:00: - [facility] 00 [facility] Cyclobenzap Cyclobenzap No 1{table QD Cyclobenza rine HCl 5 rine HCl 5 9-09 t_at_be mabel HCl MG MG 00:00: dtime_a 5 MG 00 s_neede d} Kenalog Kenalog 0 No 40mg Common (Triamcinol (Triamcinol 02-03 S pirit one) one) 00:00: - [facility] 00 [facility] Cyclobenzap Cyclobenzap No 1{table QD Cyclobenza rine HCl 5 rine HCl 5 9-09 t_at_be mabel HCl MG MG 00:00: dtime_a 5 MG 00 s_neede d} Kenalog Kenalog 0 No 40mg Common (Triamcinol (Triamcinol 02-03 S pirit one) one) 00:00: - [facility] 00 [facility] Cyclobenzap Cyclobenzap No 1{table QD Cyclobenza rine HCl 5 rine HCl 5 9-09 t_at_be mabel HCl MG MG 00:00: dtime_a 5 MG 00 s_neede d} Kenalog Kenalog 0 No 40mg Common (Triamcinol (Triamcinol 02-03 S pirit one) one) 00:00: - [facility]I 00 [facility] Cyclobenzap Cyclobenzap No 1{table QD Cyclobenza rine HCl 5 rine HCl 5 9-09 t_at_be mabel HCl MG MG 00:00: dtime_a 5 MG 00 s_neede d} Kenalog Kenalog 0 No 40mg Common (Triamcinol (Triamcinol 02-03 S pirit one) one) 00:00: - [facility] 00 [facility] Cyclobenzap Cyclobenzap No 1{table QD Cyclobenza rine HCl 5 rine HCl 5 9-09 t_at_be mabel HCl MG MG 00:00: dtime_a 5 MG 00 s_neede d} Kenalog Kenalog 2021-0 No 40mg Common (Triamcinol (Triamcinol 9-09 S pirit one) one) 00:00: - [facility] Kervinalog Kenalog 2020-0 No 40mg Common (Triamcinol (Triamcinol 9-09 S pirit one) one) 00:00: - [facility] 00 [facility] Jensen Kenalog 2020-0 No 40mg Common (Triamcinol (Triamcinol 9-09 S pirit one) one) 00:00: - [facility] 00 [facility] Jensen Kenalog 2020-0 No 40mg Common (Triamcinol (Triamcinol 9-09 S pirit one) one) 00:00: - [facility] 00 [facility] Jensen Galeanaalog 2020-0 No 40mg Common (Triamcinol (Triamcinol 9-09 S pirit one) one) 00:00: - [facility] 00 [facility] Jensen Galeanaalog 2020-0 No 40mg Common (Triamcinol (Triamcinol 9-09 S pirit one) one) 00:00: - [facility] 00 [facility] Jensen Kenalog 2020-0 No 40mg Common (Triamcinol (Triamcinol 9-09 S pirit one) one) 00:00: - [facility] 00 [facility] Xanax 0.5 Xanax 0.5 2020-0 No 1{table Xanax 0.5 MG MG 1-30 t} MG 00:00: 00 Xanax 0.5 Xanax 0.5 2020-0 No 1{table Xanax 0.5 MG MG 1-30 t} MG 00:00: 00 Xanax 0.5 Xanax 0.5 2020-0 No 1{table Xanax 0.5 MG MG 1-30 t} MG 00:00: 00 Xanax 0.5 Xanax 0.5 2020-0 No 1{table Xanax 0.5 MG MG 1-30 t} MG 00:00: 00 Xanax 0.5 Xanax 0.5 2020-0 No 1{table Xanax 0.5 MG MG 1-30 t} MG 00:00: 00 Xanax 0.5 Xanax 0.5 2021-0 No 1{table Xanax 0.5 MG MG 1-30 t} MG 00:00: 00 Xanax 0.5 Xanax 0.5 2021-0 No 1{table Xanax 0.5 MG MG 1-30 t} MG 00:00: 00 Xanax 0.5 Xanax 0.5 2021-0 No 1{table Xanax 0.5 MG MG 1-30 t} MG 00:00: 00 Xanax 0.5 Xanax 0.5 2021-0 No 1{table Xanax 0.5 MG MG 1-30 t} MG 00:00: 00 Xanax 0.5 Xanax 0.5 2021-0 No 1{table Xanax 0.5 MG MG 1-30 t} MG 00:00: 00 Xanax 0.5 Xanax 0.5 2021-0 No 1{table Xanax 0.5 MG MG 1-30 t} MG 00:00: 00 Xanax 0.5 Xanax 0.5 2021-0 No 1{table Xanax 0.5 MG MG 1-30 t} MG 00:00: 00 Xanax 0.5 Xanax 0.5 2021-0 No 1{table Xanax 0.5 MG MG 1-30 t} MG 00:00: 00 Xanax 0.5 Xanax 0.5 2021-0 No 1{table Xanax 0.5 MG MG 1-30 t} MG 00:00: 00 Xanax 0.5 Xanax 0.5 2021-0 No 1{table Xanax 0.5 MG MG 1-30 t} MG 00:00: 00 Xanax 0.5 Xanax 0.5 2021-0 No 1{table Xanax 0.5 MG MG 1-30 t} MG 00:00: 00 Xanax 0.5 Xanax 0.5 2021-0 No 1{table Xanax 0.5 MG MG 1-30 t} MG 00:00: 00 Xanax 0.5 Xanax 0.5 2021-0 No 1{table Xanax 0.5 MG MG 1-30 t} MG 00:00: 00 Xanax 0.5 Xanax 0.5 0 No 1{table Xanax 0.5 MG MG 1-30 t} MG 00:00: 00 Losartan Losartan 0 Yes Javi 1 tablet [facility] Potassium Potassium 02-03 [facility] it 00:00: - [facility] Trazodone Trazodone 0 Yes Javi 1 tablet Common HCl HCl 06 [facility] at bedtime [facility] 00:00: as needed - [facility] Acetaminoph Acetaminoph Yes Javi 1 tablet Common en-Codeine en-Codeine 02-24 [facility] as needed [facility] #4 #4 00:00: - [facility] lidocaine Yes [id number] 10mg Meth krista (XYLOCAINE) 12-13 st 10 mg/mL (1 16:00: Hospit a %) 00 l injection 10 mg methylPREDN Yes [id number] 40mg Me thodi ISolone 12-13 st acetate 16:00: Hospita (DEPO-MEDRO 00 l L) injection 40 mg Lipitor Lipitor Yes Javi 1 tablet Com mon Holman [facility] Aspir-81 Aspir-81 Yes Javi 1 tablet C ommon Holman [facility] Tylenol Tylenol Yes Javi take 1 Commo n (#4) with (#4) with [facility]man tablet Sp annette codeine codeine [facility] Atorvastati Atorvastati Yes Javi TAKE 1 Common n Calcium n Calcium [facility] TABLET BY Spirit MOUTH ONCE - [facility] A DAY [facility] Trazodone Trazodone Yes Javi TAKE 1 C ommon HCl HCl [facility] TABLET BY [facility] - [facility] EVERY DAY [facility] AT BEDTIME [facility] NEEDED [facility] Aspir-81 81 Aspir-81 81 No 1{table QD Aspir-81 MG MG t} 81 MG Vitamin C Vitamin C No Vitamin C 500 MG 500 MG 500 MG traZODone traZODone No traZODone HCl 50 MG HCl 50 MG HCl 50 MG Acetaminoph Acetaminoph No 1{table Acetaminop en-Codeine en-Codeine t_as_ne hen-Codein #4 300-60 #4 300-60 eded} e #4 MG MG 300-60 MG Tylenol Tylenol No Tylenol (#4) with (#4) with (#4) with codeine codeine codeine 60/300 60/300 60/300 Lipitor 20 Lipitor 20 No 1{table QD Lipitor 20 MG MG t} MG Vitamin D3 Vitamin D3 No Vitamin D3 Losartan Losartan No 1{table QD Losartan Potassium Potassium t} Potassium 50 MG 50 MG 50 MG Atorvastati Atorvastati No Atorvastat n Calcium n Calcium in Calcium 20 MG 20 MG 20 MG Aspir-81 81 Aspir-81 81 No 1{table QD Aspir-81 MG MG t} 81 MG Vitamin C Vitamin C No Vitamin C 500 MG 500 MG 500 MG traZODone traZODone No traZODone HCl 50 MG HCl 50 MG HCl 50 MG Acetaminoph Acetaminoph No 1{table Acetaminop en-Codeine en-Codeine t_as_ne hen-Codein #4 300-60 #4 300-60 eded} e #4 MG MG 300-60 MG Tylenol Tylenol No Tylenol (#4) with (#4) with (#4) with codeine codeine codeine 60/300 60/300 60/300 Lipitor 20 Lipitor 20 No 1{table QD Lipitor 20 MG MG t} MG Vitamin D3 Vitamin D3 No Vitamin D3 Lipitor 20 Lipitor 20 No 1{table QD Lipitor 20 MG MG t} MG traZODone traZODone No traZODone HCl 50 MG HCl 50 MG HCl 50 MG Vitamin D3 Vitamin D3 No Vitamin D3 Vitamin C Vitamin C No Vitamin C 500 MG 500 MG 500 MG Losartan Losartan No 1{table QD Losartan Potassium Potassium t} Potassium 50 MG 50 MG 50 MG Acetaminoph Acetaminoph No 1{table Acetaminop en-Codeine en-Codeine t_as_ne hen-Codein #4 300-60 #4 300-60 eded} e #4 MG MG 300-60 MG Tylenol Tylenol No Tylenol (#4) with (#4) with (#4) with codeine codeine codeine 60/300 60/300 60/300 Aspir-81 81 Aspir-81 81 No 1{table QD Aspir-81 MG MG t} 81 MG Atorvastati Atorvastati No Atorvastat n Calcium n Calcium in Calcium 20 MG 20 MG 20 MG Lipitor 20 Lipitor 20 No 1{table QD Lipitor 20 MG MG t} MG traZODone traZODone No traZODone HCl 50 MG HCl 50 MG HCl 50 MG Vitamin D3 Vitamin D3 No Vitamin D3 Vitamin C Vitamin C No Vitamin C 500 MG 500 MG 500 MG Losartan Losartan No 1{table QD Losartan Potassium Potassium t} Potassium 50 MG 50 MG 50 MG Acetaminoph Acetaminoph No 1{table Acetaminop en-Codeine en-Codeine t_as_ne hen-Codein #4 300-60 #4 300-60 eded} e #4 MG MG 300-60 MG Tylenol Tylenol No Tylenol (#4) with (#4) with (#4) with codeine codeine codeine 60/300 60/300 60/300 Aspir-81 81 Aspir-81 81 No 1{table QD Aspir-81 MG MG t} 81 MG Atorvastati Atorvastati No Atorvastat n Calcium n Calcium in Calcium 20 MG 20 MG 20 MG Atorvastati Atorvastati No Atorvastat n Calcium n Calcium in Calcium 20 MG 20 MG 20 MG Aspir-81 81 Aspir-81 81 No 1{table QD Aspir-81 MG MG t} 81 MG Vitamin C Vitamin C No Vitamin C 500 MG 500 MG 500 MG Losartan Losartan No 1{table QD Losartan Potassium Potassium t} Potassium 50 MG 50 MG 50 MG traZODone traZODone No traZODone HCl 50 MG HCl 50 MG HCl 50 MG Acetaminoph Acetaminoph No 1{table Acetaminop en-Codeine en-Codeine t_as_ne hen-Codein #4 300-60 #4 300-60 eded} e #4 MG MG 300-60 MG Losartan Losartan No Losartan Potassium Potassium Potassium 50 MG 50 MG 50 MG Lipitor 20 Lipitor 20 No 1{table QD Lipitor 20 MG MG t} MG Tylenol Tylenol No Tylenol (#4) with (#4) with (#4) with codeine codeine codeine 60/300 60/300 60/300 Vitamin D3 Vitamin D3 No Vitamin D3 Lipitor 20 Lipitor 20 No 1{table QD Lipitor 20 MG MG t} MG Vitamin C Vitamin C No Vitamin C 500 MG 500 MG 500 MG Aspir-81 81 Aspir-81 81 No 1{table QD Aspir-81 MG MG t} 81 MG Atorvastati Atorvastati No Atorvastat n Calcium n Calcium in Calcium 20 MG 20 MG 20 MG Losartan Losartan No Losartan Potassium Potassium Potassium 50 MG 50 MG 50 MG Vitamin D3 Vitamin D3 No Vitamin D3 Tylenol Tylenol No Tylenol (#4) with (#4) with (#4) with codeine codeine codeine 60/300 60/300 60/300 Losartan Losartan No 1{table QD Losartan Potassium Potassium t} Potassium 50 MG 50 MG 50 MG Acetaminoph Acetaminoph No 1{table Acetaminop en-Codeine en-Codeine t_as_ne hen-Codein #4 300-60 #4 300-60 eded} e #4 MG MG 300-60 MG traZODone traZODone No traZODone HCl 50 MG HCl 50 MG HCl 50 MG Aspir-81 81 Aspir-81 81 No 1{table QD Aspir-81 MG MG t} 81 MG Tylenol Tylenol No Tylenol (#4) with (#4) with (#4) with codeine codeine codeine 60/300 60/300 60/300 traZODone traZODone No traZODone HCl 50 MG HCl 50 MG HCl 50 MG Vitamin D3 Vitamin D3 No Vitamin D3 Lipitor 20 Lipitor 20 No 1{table QD Lipitor 20 MG MG t} MG Losartan Losartan No 1{table QD Losartan Potassium Potassium t} Potassium 50 MG 50 MG 50 MG Losartan Losartan No Losartan Potassium Potassium Potassium 50 MG 50 MG 50 MG Atorvastati Atorvastati No Atorvastat n Calcium n Calcium in Calcium 20 MG 20 MG 20 MG Acetaminoph Acetaminoph No 1{table Acetaminop en-Codeine en-Codeine t_as_ne hen-Codein #4 300-60 #4 300-60 eded} e #4 MG MG 300-60 MG Vitamin C Vitamin C No Vitamin C 500 MG 500 MG 500 MG Aspir-81 81 Aspir-81 81 No 1{table QD Aspir-81 MG MG t} 81 MG Tylenol Tylenol No Tylenol (#4) with (#4) with (#4) with codeine codeine codeine 60/300 60/300 60/300 traZODone traZODone No traZODone HCl 50 MG HCl 50 MG HCl 50 MG Vitamin D3 Vitamin D3 No Vitamin D3 Lipitor 20 Lipitor 20 No 1{table QD Lipitor 20 MG MG t} MG Losartan Losartan No 1{table QD Losartan Potassium Potassium t} Potassium 50 MG 50 MG 50 MG Losartan Losartan No Losartan Potassium Potassium Potassium 50 MG 50 MG 50 MG Atorvastati Atorvastati No Atorvastat n Calcium n Calcium in Calcium 20 MG 20 MG 20 MG Acetaminoph Acetaminoph No 1{table Acetaminop en-Codeine en-Codeine t_as_ne hen-Codein #4 300-60 #4 300-60 eded} e #4 MG MG 300-60 MG Vitamin C Vitamin C No Vitamin C 500 MG 500 MG 500 MG Aspir-81 81 Aspir-81 81 No 1{table QD Aspir-81 MG MG t} 81 MG Tylenol Tylenol No Tylenol (#4) with (#4) with (#4) with codeine codeine codeine 60/300 60/300 60/300 traZODone traZODone No traZODone HCl 50 MG HCl 50 MG HCl 50 MG Vitamin D3 Vitamin D3 No Vitamin D3 Lipitor 20 Lipitor 20 No 1{table QD Lipitor 20 MG MG t} MG Losartan Losartan No 1{table QD Losartan Potassium Potassium t} Potassium 50 MG 50 MG 50 MG Losartan Losartan No Losartan Potassium Potassium Potassium 50 MG 50 MG 50 MG Atorvastati Atorvastati No Atorvastat n Calcium n Calcium in Calcium 20 MG 20 MG 20 MG Acetaminoph Acetaminoph No 1{table Acetaminop en-Codeine en-Codeine t_as_ne hen-Codein #4 300-60 #4 300-60 eded} e #4 MG MG 300-60 MG Vitamin C Vitamin C No Vitamin C 500 MG 500 MG 500 MG traZODone traZODone No traZODone HCl 50 MG HCl 50 MG HCl 50 MG Lipitor 20 Lipitor 20 No 1{table QD Lipitor 20 MG MG t} MG Vitamin D3 Vitamin D3 No Vitamin D3 Vitamin C Vitamin C No Vitamin C 500 MG 500 MG 500 MG Atorvastati Atorvastati No Atorvastat n Calcium n Calcium in Calcium 20 MG 20 MG 20 MG Aspir-81 81 Aspir-81 81 No 1{table QD Aspir-81 MG MG t} 81 MG Acetaminoph Acetaminoph No 1{table Acetaminop en-Codeine en-Codeine t_as_ne hen-Codein #4 300-60 #4 300-60 eded} e #4 MG MG 300-60 MG Losartan Losartan No Losartan Potassium Potassium Potassium 50 MG 50 MG 50 MG Tylenol Tylenol No Tylenol (#4) with (#4) with (#4) with codeine codeine codeine 60/300 60/300 60/300 Losartan Losartan No 1{table QD Losartan Potassium Potassium t} Potassium 50 MG 50 MG 50 MG traZODone traZODone No traZODone HCl 50 MG HCl 50 MG HCl 50 MG Lipitor 20 Lipitor 20 No 1{table QD Lipitor 20 MG MG t} MG Vitamin D3 Vitamin D3 No Vitamin D3 Vitamin C Vitamin C No Vitamin C 500 MG 500 MG 500 MG Atorvastati Atorvastati No Atorvastat n Calcium n Calcium in Calcium 20 MG 20 MG 20 MG Aspir-81 81 Aspir-81 81 No 1{table QD Aspir-81 MG MG t} 81 MG Acetaminoph Acetaminoph No 1{table Acetaminop en-Codeine en-Codeine t_as_ne hen-Codein #4 300-60 #4 300-60 eded} e #4 MG MG 300-60 MG Losartan Losartan No Losartan Potassium Potassium Potassium 50 MG 50 MG 50 MG Tylenol Tylenol No Tylenol (#4) with (#4) with (#4) with codeine codeine codeine 60/300 60/300 60/300 Losartan Losartan No 1{table QD Losartan Potassium Potassium t} Potassium 50 MG 50 MG 50 MG Lipitor 20 Lipitor 20 No 1{table QD Lipitor 20 MG MG t} MG Vitamin D3 Vitamin D3 No Vitamin D3 Atorvastati Atorvastati No Atorvastat n Calcium n Calcium in Calcium 20 MG 20 MG 20 MG Tylenol Tylenol No Tylenol (#4) with (#4) with (#4) with codeine codeine codeine 60/300 60/300 60/300 Aspir-81 81 Aspir-81 81 No 1{table QD Aspir-81 MG MG t} 81 MG traZODone traZODone No traZODone HCl 50 MG HCl 50 MG HCl 50 MG Losartan Losartan No Losartan Potassium Potassium Potassium 50 MG 50 MG 50 MG Acetaminoph Acetaminoph No 1{table Acetaminop en-Codeine en-Codeine t_as_ne hen-Codein #4 300-60 #4 300-60 eded} e #4 MG MG 300-60 MG Vitamin C Vitamin C No Vitamin C 500 MG 500 MG 500 MG Losartan Losartan No Losartan Potassium Potassium Potassium 50 MG 50 MG 50 MG Lipitor 20 Lipitor 20 No 1{table QD Lipitor 20 MG MG t} MG traZODone traZODone No traZODone HCl 50 MG HCl 50 MG HCl 50 MG Atorvastati Atorvastati No Atorvastat n Calcium n Calcium in Calcium 20 MG 20 MG 20 MG Vitamin D3 Vitamin D3 No Vitamin D3 Losartan Losartan No 1{table QD Losartan Potassium Potassium t} Potassium 50 MG 50 MG 50 MG Aspir-81 81 Aspir-81 81 No 1{table QD Aspir-81 MG MG t} 81 MG Tylenol Tylenol No Tylenol (#4) with (#4) with (#4) with codeine codeine codeine 60/300 60/300 60/300 Lipitor 20 Lipitor 20 No 1{table QD Lipitor 20 MG MG t} MG Vitamin C Vitamin C No Vitamin C 500 MG 500 MG 500 MG Acetaminoph Acetaminoph No 1{table Acetaminop en-Codeine en-Codeine t_as_ne hen-Codein #4 300-60 #4 300-60 eded} e #4 MG MG 300-60 MG Losartan Losartan No Losartan Potassium Potassium Potassium 50 MG 50 MG 50 MG Lipitor 20 Lipitor 20 No 1{table QD Lipitor 20 MG MG t} MG traZODone traZODone No traZODone HCl 50 MG HCl 50 MG HCl 50 MG Atorvastati Atorvastati No Atorvastat n Calcium n Calcium in Calcium 20 MG 20 MG 20 MG Vitamin D3 Vitamin D3 No Vitamin D3 Losartan Losartan No 1{table QD Losartan Potassium Potassium t} Potassium 50 MG 50 MG 50 MG Aspir-81 81 Aspir-81 81 No 1{table QD Aspir-81 MG MG t} 81 MG Tylenol Tylenol No Tylenol (#4) with (#4) with (#4) with codeine codeine codeine 60/300 60/300 60/300 Lipitor 20 Lipitor 20 No 1{table QD Lipitor 20 MG MG t} MG Vitamin C Vitamin C No Vitamin C 500 MG 500 MG 500 MG Acetaminoph Acetaminoph No 1{table Acetaminop en-Codeine en-Codeine t_as_ne hen-Codein #4 300-60 #4 300-60 eded} e #4 MG MG 300-60 MG Losartan Losartan No Losartan Potassium Potassium Potassium 50 MG 50 MG 50 MG Lipitor 20 Lipitor 20 No 1{table QD Lipitor 20 MG MG t} MG traZODone traZODone No traZODone HCl 50 MG HCl 50 MG HCl 50 MG Atorvastati Atorvastati No Atorvastat n Calcium n Calcium in Calcium 20 MG 20 MG 20 MG Vitamin D3 Vitamin D3 No Vitamin D3 Losartan Losartan No 1{table QD Losartan Potassium Potassium t} Potassium 50 MG 50 MG 50 MG Aspir-81 81 Aspir-81 81 No 1{table QD Aspir-81 MG MG t} 81 MG Tylenol Tylenol No Tylenol (#4) with (#4) with (#4) with codeine codeine codeine 60/300 60/300 60/300 Lipitor 20 Lipitor 20 No 1{table QD Lipitor 20 MG MG t} MG Vitamin C Vitamin C No Vitamin C 500 MG 500 MG 500 MG Acetaminoph Acetaminoph No 1{table Acetaminop en-Codeine en-Codeine t_as_ne hen-Codein #4 300-60 #4 300-60 eded} e #4 MG MG 300-60 MG Losartan Losartan No Losartan Potassium Potassium Potassium 50 MG 50 MG 50 MG Acetaminoph Acetaminoph No 1{table Acetaminop en-Codeine en-Codeine t_as_ne hen-Codein #4 300-60 #4 300-60 eded} e #4 MG MG 300-60 MG Lipitor 20 Lipitor 20 No 1{table QD Lipitor 20 MG MG t} MG traZODone traZODone No traZODone HCl 50 MG HCl 50 MG HCl 50 MG Aspir-81 81 Aspir-81 81 No 1{table QD Aspir-81 MG MG t} 81 MG Vitamin C Vitamin C No Vitamin C 500 MG 500 MG 500 MG Lipitor 20 Lipitor 20 No 1{table QD Lipitor 20 MG MG t} MG Tylenol Tylenol No Tylenol (#4) with (#4) with (#4) with codeine codeine codeine 60/300 60/300 60/300 Atorvastati Atorvastati No Atorvastat n Calcium n Calcium in Calcium 20 MG 20 MG 20 MG Vitamin D3 Vitamin D3 No Vitamin D3 Losartan Losartan No 1{table QD Losartan Potassium Potassium t} Potassium 50 MG 50 MG 50 MG Lipitor 20 Lipitor 20 No 1{table QD Lipitor 20 MG MG t} MG Vitamin C Vitamin C No Vitamin C 500 MG 500 MG 500 MG Vitamin D3 Vitamin D3 No Vitamin D3 Losartan Losartan No Losartan Potassium Potassium Potassium 50 MG 50 MG 50 MG Tylenol Tylenol No Tylenol (#4) with (#4) with (#4) with codeine codeine codeine 60/300 60/300 60/300 Lipitor 20 Lipitor 20 No 1{table QD Lipitor 20 MG MG t} MG traZODone traZODone No traZODone HCl 50 MG HCl 50 MG HCl 50 MG Atorvastati Atorvastati No Atorvastat n Calcium n Calcium in Calcium 20 MG 20 MG 20 MG Aspir-81 81 Aspir-81 81 No 1{table QD Aspir-81 MG MG t} 81 MG Acetaminoph Acetaminoph No 1{table Acetaminop en-Codeine en-Codeine t_as_ne hen-Codein #4 300-60 #4 300-60 eded} e #4 MG MG 300-60 MG Lipitor 20 Lipitor 20 No 1{table QD Lipitor 20 MG MG t} MG Vitamin C Vitamin C No Vitamin C 500 MG 500 MG 500 MG Vitamin D3 Vitamin D3 No Vitamin D3 Losartan Losartan No Losartan Potassium Potassium Potassium 50 MG 50 MG 50 MG Tylenol Tylenol No Tylenol (#4) with (#4) with (#4) with codeine codeine codeine 60/300 60/300 60/300 Lipitor 20 Lipitor 20 No 1{table QD Lipitor 20 MG MG t} MG traZODone traZODone No traZODone HCl 50 MG HCl 50 MG HCl 50 MG Atorvastati Atorvastati No Atorvastat n Calcium n Calcium in Calcium 20 MG 20 MG 20 MG Aspir-81 81 Aspir-81 81 No 1{table QD Aspir-81 MG MG t} 81 MG Acetaminoph Acetaminoph No 1{table Acetaminop en-Codeine en-Codeine t_as_ne hen-Codein #4 300-60 #4 300-60 eded} e #4 MG MG 300-60 MG Vitamin C Vitamin C No Vitamin C 500 MG 500 MG 500 MG Acetaminoph Acetaminoph No 1{table Acetaminop en-Codeine en-Codeine t_as_ne hen-Codein #4 300-60 #4 300-60 eded} e #4 MG MG 300-60 MG Atorvastati Atorvastati No Atorvastat n Calcium n Calcium in Calcium 20 MG 20 MG 20 MG Lipitor 20 Lipitor 20 No 1{table QD Lipitor 20 MG MG t} MG Tylenol Tylenol No Tylenol (#4) with (#4) with (#4) with codeine codeine codeine 60/300 60/300 60/300 traZODone traZODone No traZODone HCl 50 MG HCl 50 MG HCl 50 MG Vitamin D3 Vitamin D3 No Vitamin D3 Aspir-81 81 Aspir-81 81 No 1{table QD Aspir-81 MG MG t} 81 MG Losartan Losartan No Losartan Potassium Potassium Potassium 50 MG 50 MG 50 MG Losartan Losartan No 1{table QD Losartan Potassium Potassium t} Potassium 50 MG 50 MG 50 MG Lipitor 20 Lipitor 20 No 1{table QD Lipitor 20 MG MG t} MG Losartan Losartan No 1{table QD Losartan Potassium Potassium t} Potassium 50 MG 50 MG 50 MG Vitamin C Vitamin C No Vitamin C 500 MG 500 MG 500 MG Lipitor 20 Lipitor 20 No 1{table QD Lipitor 20 MG MG t} MG Vitamin D3 Vitamin D3 No Vitamin D3 Atorvastati Atorvastati No Atorvastat n Calcium n Calcium in Calcium 20 MG 20 MG 20 MG Aspir-81 81 Aspir-81 81 No 1{table QD Aspir-81 MG MG t} 81 MG Losartan Losartan No Losartan Potassium Potassium Potassium 50 MG 50 MG 50 MG Acetaminoph Acetaminoph No 1{table Acetaminop en-Codeine en-Codeine t_as_ne hen-Codein #4 300-60 #4 300-60 eded} e #4 MG MG 300-60 MG Vitamin D3 Vitamin D3 No Vitamin D3 Lipitor 20 Lipitor 20 No 1{table QD Lipitor 20 MG MG t} MG Aspir-81 81 Aspir-81 81 No 1{table QD Aspir-81 MG MG t} 81 MG Acetaminoph Acetaminoph No 1{table Acetaminop en-Codeine en-Codeine t_as_ne hen-Codein #4 300-60 #4 300-60 eded} e #4 MG MG 300-60 MG Vitamin C Vitamin C No Vitamin C 500 MG 500 MG 500 MG Losartan Losartan No Losartan Potassium Potassium Potassium 50 MG 50 MG 50 MG Atorvastati Atorvastati No Atorvastat n Calcium n Calcium in Calcium 20 MG 20 MG 20 MG Losartan Losartan No 1{table QD Losartan Potassium Potassium t} Potassium 50 MG 50 MG 50 MG Vitamin D3 Vitamin D3 No Vitamin D3 Lipitor 20 Lipitor 20 No 1{table QD Lipitor 20 MG MG t} MG Aspir-81 81 Aspir-81 81 No 1{table QD Aspir-81 MG MG t} 81 MG Acetaminoph Acetaminoph No 1{table Acetaminop en-Codeine en-Codeine t_as_ne hen-Codein #4 300-60 #4 300-60 eded} e #4 MG MG 300-60 MG Vitamin C Vitamin C No Vitamin C 500 MG 500 MG 500 MG Losartan Losartan No Losartan Potassium Potassium Potassium 50 MG 50 MG 50 MG Atorvastati Atorvastati No Atorvastat n Calcium n Calcium in Calcium 20 MG 20 MG 20 MG Losartan Losartan No 1{table QD Losartan Potassium Potassium t} Potassium 50 MG 50 MG 50 MG Vitamin D3 Vitamin D3 No Vitamin D3 Lipitor 20 Lipitor 20 No 1{table QD Lipitor 20 MG MG t} MG Losartan Losartan No 1{table QD Losartan Potassium Potassium t} Potassium 50 MG 50 MG 50 MG Aspir-81 81 Aspir-81 81 No 1{table QD Aspir-81 MG MG t} 81 MG Vitamin C Vitamin C No Vitamin C 500 MG 500 MG 500 MG Losartan Losartan No Losartan Potassium Potassium Potassium 50 MG 50 MG 50 MG Atorvastati Atorvastati No Atorvastat n Calcium n Calcium in Calcium 20 MG 20 MG 20 MG Acetaminoph Acetaminoph No 1{table Acetaminop en-Codeine en-Codeine t_as_ne hen-Codein #4 300-60 #4 300-60 eded} e #4 MG MG 300-60 MG Losartan Losartan No Losartan Potassium Potassium Potassium 50 MG 50 MG 50 MG Vitamin C Vitamin C No Vitamin C 500 MG 500 MG 500 MG Acetaminoph Acetaminoph No 1{table Acetaminop en-Codeine en-Codeine t_as_ne hen-Codein #4 300-60 #4 300-60 eded} e #4 MG MG 300-60 MG Atorvastati Atorvastati No Atorvastat n Calcium n Calcium in Calcium 20 MG 20 MG 20 MG Losartan Losartan No 1{table QD Losartan Potassium Potassium t} Potassium 50 MG 50 MG 50 MG Lipitor 10 Lipitor 10 No 1{table QD Lipitor 10 MG MG t} MG Vitamin D3 Vitamin D3 No Vitamin D3 Aspir-81 81 Aspir-81 81 No 1{table QD Aspir-81 MG MG t} 81 MG Amoxicillin Amoxicillin No 1{table BID Amoxicilli -Pot -Pot t} n-Pot Clavulanate Clavulanate Clavulanat 875-125 MG 875-125 MG e 875-125 MG Losartan Losartan No Losartan Potassium Potassium Potassium 50 MG 50 MG 50 MG Aspir-81 81 Aspir-81 81 No 1{table QD Aspir-81 MG MG t} 81 MG Acetaminoph Acetaminoph No 1{table Acetaminop en-Codeine en-Codeine t_as_ne hen-Codein #4 300-60 #4 300-60 eded} e #4 MG MG 300-60 MG Atorvastati Atorvastati No Atorvastat n Calcium n Calcium in Calcium 20 MG 20 MG 20 MG Vitamin C Vitamin C No Vitamin C 500 MG 500 MG 500 MG Benzonatate Benzonatate No 1{capsu Benzonatat 200 MG 200 MG le_as_n e 200 MG eeded} methylPREDN methylPREDN No QD methylPRED ISolone 4 ISolone 4 NISolone 4 MG MG MG Vitamin D3 Vitamin D3 No Vitamin D3 Lipitor 10 Lipitor 10 No 1{table QD Lipitor 10 MG MG t} MG Losartan Losartan No 1{table QD Losartan Potassium Potassium t} Potassium 50 MG 50 MG 50 MG Atorvastati Atorvastati No Atorvastat n Calcium n Calcium in Calcium 20 MG 20 MG 20 MG Immunizations Ordered Immunization Filled Immunization Date Status Commen ts Source Name Name Prevnar 20 (PCV20) Prevnar 20 (PCV20) 2022-08-17 [facility] COVID-19 [facility] COVID-19 2021-04-27 Com[facility] (Low Dose Vaccine (Low Dose 10:52:00 [facility] Booster) Booster) [facility] COVID-19 [facility] COVID-19 2021-04-27 Com[facility] (Low Dose Vaccine (Low Dose 10:52:[address] [facility] Booster) Booster) [facility] [address] COVID19 2021-04-27 Completed [facility] (Low Dose Vaccine (Low Dose 10:52:[address] [facility] Booster) Booster) [facility] [facility] (Low Dose Vaccine (Low Dose 10:52:[facility] Booster) Booster) [facility] [facility]-27 [facility] (Low Dose Vaccine (Low Dose 10:52:00 - [facility] Booster) Booster) [facility] [address] [facility] Com[facility] (Low Dose Vaccine (Low Dose 10:52:00 - [facility] Booster) Booster) [facility] [address] [facility] Com[facility] (Low Dose Vaccine (Low Dose 10:52:00 - [facility] Booster) Booster) [facility] [address] [facility]-27 Com[facility] (Low Dose Vaccine (Low Dose 10[facility]52:00 - [facility] Booster) Booster) [facility] [address] [facility] (Low Dose Vaccine (Low Dose 10:52:00 - [facility] Booster) Booster) [facility] [address] [facility]27 [facility]ine (Low Dose Vaccine (Low Dose 10:52:00 - [facility] Booster) Booster) [facility] [address] COVID19 2021-04-27 Completed [facility] Vaccine (Low Dose Vaccine (Low Dose 10:52:00 - [facility] Booster) Booster) [facility] [address] COVID19 2021-04-27 Completed [facility] Vaccine (Low Dose Vaccine (Low Dose 10:52:00 - [facility] Booster) Booster) [facility] [address] [facility] 2021-04-27 Com[facility] Vaccine (Low Dose Vaccine (Low Dose 10:52:00 - [facility] Booster) Booster) [facility] [address] COVID19 2021-04-27 Completed [facility] Vaccine (Low Dose Vaccine (Low Dose 10:52:00 - [facility] Booster) Booster) [facility] [address] [facility]-04-27 Com[facility] Vaccine (Low Dose Vaccine (Low Dose 10:52:00 - [facility] Booster) [facility] [address] [facility] 2021-04-27 Com[facility] Vaccine (Low Dose Vaccine (Low Dose 10:52:00 - [facility] Booster) Booster) [facility] [address] COVID19 2021-04-27 Completed [facility] Vaccine (Low Dose Vaccine (Low Dose 10:52:00 - [facility] Booster) Booster) [facility] [address] [facility] 2021-04-27 Com[facility] Vaccine (Low Dose Vaccine (Low Dose 10:52:00 - [facility] Booster) Booster) [facility] [address] [facility] 2021-04-27 Com[facility] Vaccine (Low Dose Vaccine (Low Dose 10:52:00 - [facility] Booster) Booster) [facility] [address] [facility] 2021-04-27 Com[facility] Vaccine (Low Dose Vaccine (Low Dose 10:52:00 - [facility] Booster) Booster) [facility] FLUZONE HIGH DOSE FLUZONE HIGH DOSE 2021-03-22 Completed [facility] OVER 65 OVER 65 16:03:00 [facility] FLUZONE HIGH DOSE FLUZONE HIGH DOSE 2021-03-22 Completed [facility] OVER 65 OVER 65 16:03:00 [facility] FLUZONE HIGH DOSE FLUZONE HIGH DOSE 2021-03-22 Completed [facility] OVER 65 OVER 65 16:03:00 [facility] FLUZONE HIGH DOSE FLUZONE HIGH DOSE 2021-03-22 Completed [facility] OVER 65 OVER 65 16:03:00 - [facility] FLUZONE HIGH DOSE FLUZONE HIGH DOSE 2021-03-22 Completed [facility] OVER 65 OVER 65 16:03:00 - [facility] FLUZONE HIGH DOSE FLUZONE HIGH DOSE 2021-03-22 Completed [facility] OVER 65 OVER 65 16:03:00 - [facility] FLUZONE HIGH DOSE FLUZONE HIGH DOSE 2021-03-22 Completed [facility] OVER 65 OVER 65 16:03:00 - [facility] FLUZONE HIGH DOSE FLUZONE HIGH DOSE 2021-03-22 Completed [facility] OVER 65 OVER 65 16:03:00 - [facility] FLUZONE HIGH DOSE FLUZONE HIGH DOSE 2021-03-22 Completed [facility] OVER 65 OVER 65 16:03:00 - [facility] FLUZONE HIGH DOSE FLUZONE HIGH DOSE 2021-03-22 Completed [facility] OVER 65 OVER 65 16:03:00 - [facility] FLUZONE HIGH DOSE FLUZONE HIGH DOSE 2021-03-22 Completed [facility] OVER 65 OVER 65 16:03:00 - [facility] FLUZONE HIGH DOSE FLUZONE HIGH DOSE 2021-03-22 Completed [facility] OVER 65 OVER 65 16:03:00 - [facility] FLUZONE HIGH DOSE FLUZONE HIGH DOSE 2021-03-22 Completed [facility] OVER 65 OVER 65 16:03:00 - [facility] FLUZONE HIGH DOSE FLUZONE HIGH DOSE 2021-03-22 Completed [facility] OVER 65 OVER 65 16:03:00 - [facility] FLUZONE HIGH DOSE FLUZONE HIGH DOSE 2021-03-22 Completed [facility] OVER 65 OVER 65 16:03:00 - [facility] FLUZONE HIGH DOSE FLUZONE HIGH DOSE 2021-03-22 Completed [facility] OVER 65 OVER 65 16:03:00 - [facility] FLUZONE HIGH DOSE FLUZONE HIGH DOSE 2021-03-22 Completed [facility] OVER 65 OVER 65 16:03:00 - [facility] FLUZONE HIGH DOSE FLUZONE HIGH DOSE 2021-03-22 Completed [facility] OVER 65 OVER 65 16:03:00 - [facility] FLUZONE HIGH DOSE FLUZONE HIGH DOSE 2021-03-22 Completed [facility] OVER 65 OVER 65 16:03:00 - [facility] FLUZONE HIGH DOSE FLUZONE HIGH DOSE 2021-03-22 Completed [facility] OVER 65 OVER 65 16:03:00 - [facility] FLUZONE HIGH DOSE FLUZONE HIGH DOSE 2021-03-22 Completed [facility] OVER 65 OVER 65 16:03:00 - [facility] FLUZONE HIGH DOSE FLUZONE HIGH DOSE 2021-03-22 Completed [facility] OVER 65 OVER 65 16:03:00 - [facility] FLUZONE HIGH DOSE FLUZONE HIGH DOSE 2021-03-22 Completed [facility] OVER 65 OVER 65 16:03:00 [facility] Toradol (Ketorolac) Toradol (Ketorolac) 2021-03-22 Completed [facility] 16:02:00 [facility] Toradol (Ketorolac) Toradol (Ketorolac) 2021-03-22 Completed [facility] 16:02:00 - [facility] Jensen Styles 2021-02-03 Completed [facility] (Triamcinolone) (Triamcinolone) 13:50:00 - [facility] Jensen Styles 2021-02-03 Completed [facility] (Triamcinolone) (Triamcinolone) 13:50:00 - [facility] Jensen Styles 2021-02-03 Completed [facility] (Triamcinolone) (Triamcinolone) 13:50:00 - [facility] Jensen Styles 2021-02-03 Completed [facility] (Triamcinolone) (Triamcinolone) 13:50:00 - [facility] Pneumovax (PPSV23) Pneumovax (PPSV23) 2020-01-02 Completed [facility] 09:43:00 [facility] Pneumovax (PPSV23) Pneumovax (PPSV23) 2020-01-02 Completed [facility] 09:43:00 [facility] Pneumovax (PPSV23) Pneumovax (PPSV23) 2020-01-02 Completed [facility] 09:43:00 [facility] Pneumovax (PPSV23) Pneumovax (PPSV23) 2020-01-02 Completed [facility] 09:43:00 [facility] Pneumovax (PPSV23) Pneumovax (PPSV23) 2020-01-02 Completed [facility] 09:43:00 [facility] Pneumovax (PPSV23) Pneumovax (PPSV23) 2020-01-02 Completed [facility] 09:43:00 [facility] Pneumovax (PPSV23) Pneumovax (PPSV23) 2020-01-02 Completed [facility] 09:43:00 [facility] Pneumovax (PPSV23) Pneumovax (PPSV23) 2020-01-02 Completed [facility] 09:43:00 [facility] Pneumovax (PPSV23) Pneumovax (PPSV23) 2020-01-02 Completed [facility] 09:43:00 [facility] Pneumovax (PPSV23) Pneumovax (PPSV23) 2020-01-02 Completed [facility] 09:43:00 [facility] Pneumovax (PPSV23) Pneumovax (PPSV23) 2020-01-02 Completed [facility] 09:43:00 [facility] Pneumovax (PPSV23) Pneumovax (PPSV23) 2020-01-02 Completed [facility] 09:43:00 [facility] Pneumovax (PPSV23) Pneumovax (PPSV23) 2020-01-02 Completed [facility] 09:43:00 [facility] Pneumovax (PPSV23) Pneumovax (PPSV23) 2020-01-02 Completed [facility] 09:43:00 [facility] Pneumovax (PPSV23) Pneumovax (PPSV23) 2020-01-02 Completed [facility] 09:43:00 [facility] Pneumovax (PPSV23) Pneumovax (PPSV23) 2020-01-02 Completed [facility] 09:43:00 [facility] Pneumovax (PPSV23) Pneumovax (PPSV23) 2020-01-02 Completed [facility] 09:43:00 - [facility] Pneumovax (PPSV23) Pneumovax (PPSV23) 2020-01-02 Completed [facility] 09:43:00 - [facility] Pneumovax (PPSV23) Pneumovax (PPSV23) 2020-01-02 Completed [facility] 09:43:00 - [facility] Pneumovax (PPSV23) Pneumovax (PPSV23) 2020-01-02 Completed [facility] 09:43:00 - [facility] Pneumovax (PPSV23) Pneumovax (PPSV23) 2020-01-02 Completed [facility] 09:43:00 - [facility] Pneumovax (PPSV23) Pneumovax (PPSV23) 2020-01-02 Completed [facility] 09:43:00 - [facility] Pneumovax (PPSV23) Pneumovax (PPSV23) 2020-01-02 Completed [facility] 09:43:00 - [facility] Pneumovax (PPSV23) Pneumovax (PPSV23) 2020-01-02 Completed [facility] 09:43:00 - [facility] Pneumovax (PPSV23) Pneumovax (PPSV23) 2020-01-02 Completed [facility] 09:43:00 - [facility] FluAD FluAD 2020-01-02 Completed [facility] 09:42:00 - [facility] FluAD FluAD 2020-01-02 Completed [facility] 09:42:00 - [facility] FluAD FluAD 2020-01-02 Completed [facility] 09:42:00 - [facility] FluAD FluAD 2020-01-02 Completed [facility] 09:42:00 - [facility] FluAD FluAD 2020-01-02 Completed [facility] 09:42:00 - [facility] FluAD FluAD 2020-01-02 Completed [facility] 09:42:00 - [facility] FluAD FluAD 2020-01-02 Completed [facility] 09:42:00 - [facility] FluAD FluAD 2020-01-02 Completed [facility] 09:42:00 - [facility] FluAD FluAD 2020-01-02 Completed [facility] 09:42:00 - [facility] FluAD FluAD 2020-01-02 Completed [facility] 09:42:00 - [facility] FluAD FluAD 2020-01-02 Completed [facility] 09:42:00 - [facility] FluAD FluAD 2020-01-02 Completed [facility] 09:42:00 - [facility] FluAD FluAD 2020-01-02 Completed [facility] 09:42:00 - [facility] FluAD FluAD 2020-01-02 Completed [facility] 09:42:00 - [facility] FluAD FluAD 2020-01-02 Completed [facility] 09:42:00 - [facility] FluAD FluAD 2020-01-02 Completed [facility] 09:42:00 - [facility] FluAD FluAD 2020-01-02 Completed [facility] 09:42:00 - [facility] FluAD FluAD 2020-01-02 Completed [facility] 09:42:00 - [facility] FluAD FluAD 2020-01-02 Completed [facility] 09:42:00 - [facility] FluAD FluAD 2020-01-02 Completed [facility] 09:42:00 - [facility] FluAD FluAD 2020-01-02 Completed [facility] 09:42:00 - [facility] FluAD FluAD 2020-01-02 Completed [facility] 09:42:00 - [facility] FluAD FluAD 2020-01-02 Completed [facility] 09:42:00 - [facility] FluAD FluAD 2020-01-02 Completed [facility] 09:42:00 - [facility] FluAD FluAD 2020-01-02 Completed [facility] 09:42:00 - [facility] Vital Signs Vital Name Observation Time Observation Value Comments Source Systolic blood 2022-10-20 13:54:00 141 mm[Hg] Univer sity of pressure [facility] Diastolic blood 2022-10-20 13:54:00 81 mm[Hg] Unive rsity of [facility] Heart rate 2022-10-20 13:54:00 70 /min [facility] Body temperature 2022-10-20 13:54:00 36.17 Susie [facility] Respiratory rate 2022-10-20 13:54:00 18 /min Univ ersity of [facility] Body height 2022-10-20 13:54:00 167.6 cm [facility] Body weight 2022-10-20 13:54:00 113.263 kg [facility] BMI 2022-10-20 13:54:00 40.30 kg/m2 Universi ty of [facility] Oxygen saturation in 2022-10-20 13:54:00 97 /min [facility] of Arterial blood by [facility] Pulse oximetry Branch Systolic blood 2022-06-20 16:16:00 132 mm[Hg] Univer sity of pressure [facility] Diastolic blood 2022-06-20 16:16:00 86 mm[Hg] Unive rsity of pressure [facility] Heart rate 2022-06-20 16:16:00 68 /min Universi ty of [facility] Body temperature 2022-06-20 16:16:00 36.56 Susie [facility] ersity of [facility] Respiratory rate 2022-06-20 16:16:00 18 /min [facility] ersity of [facility] Body height 2022-06-20 16:16:00 166.[address] [facility] Body weight 2022-06-20 16:16:00 111[address] [facility] BMI 2022-06-20 16:16:00 40.31 kg/m2 Universi ty of [facility] Oxygen saturation in 2022-06-20 16:16:00 98 /min [facility] Arterial blood by [facility] Pulse oximetry Branch height 2022-04-17 09:30:00 65 [in_i] [facility] weight 2022-04-17 09:30:00 245.5 [lb_av] [facility] temperature 2022-04-17 09:30:00 96.5 [degF] [facility] bmi 2022-04-17 09:30:00 40.85 kg/m2 [facility] oximetry 2022-04-17 09:30:00 97 % Common S [facility] respiratory rate 2022-04-17 09:30:00 17 /min Comm on [facility] blood pressure 2022-04-17 09:30:00 115 mm[Hg] Common [facility] - systolic [facility] blood pressure 2022-04-17 09:30:00 72 mm[Hg] [facility] - diastolic [facility] height 2021-12-29 09:30:00 65 [in_i] [facility] weight 2021-12-29 09:30:00 245 [lb_av] [facility] bmi 2021-12-29 09:30:00 40.77 kg/m2 [facility] height 2021-12-13 09:40:00 65 [in_i] [facility] weight 2021-12-13 09:40:00 244 [lb_av] [facility] temperature 2021-12-13 09:40:00 97.6 [degF] [facility] bmi 2021-12-13 09:40:00 40.6 kg/m2 [facility] oximetry 2021-12-13 09:40:00 97 % [facility] respiratory rate 2021-12-13 09:40:00 18 /min Comm on [facility] blood pressure 2021-12-13 09:40:00 135 mm[Hg] Common [facility] - systolic [facility] blood pressure 2021-12-13 09:40:00 79 mm[Hg] Common [facility] - diastolic [facility] Systolic blood 2021-11-29 14:38:00 192 mm[Hg] Univer sity of [facility] Diastolic blood 2021-11-29 14:38:00 93 mm[Hg] Unive rsity of [facility] Heart rate 2021-11-29 14:38:00 68 /min [facility] Body temperature 2021-11-29 14:38:00 36.72 [facility] 2021-11-29 14:38:00 16 /min [facility] Body height 2021-11-29 14:38:00 165.1 cm [facility] Body weight 2021-11-29 14:38:00 110.133 kg Universi ty [facility] BMI 2021-11-29 14:38:00 40.40 kg/m2 [facility] Oxygen saturation in 2021-11-29 14:38:00 97 /min [facility] Arterial blood by [facility] Pulse oximetry Branch height 2021-11-25 11:20:00 65 [in_i] [facility] weight 2021-11-25 11:20:00 241.4 [lb_av] [facility] temperature 2021-11-25 11:20:00 97.2 [degF] [facility] bmi 2021-11-25 11:20:00 40.17 kg/m2 [facility] oximetry 2021-11-25 11:20:00 97 % [facility] respiratory rate 2021-11-25 11:20:00 17 /min Comm on [facility] blood pressure 2021-11-25 11:20:00 138 mm[Hg] [facility] - systolic [facility] blood pressure 2021-11-25 11:20:00 74 mm[Hg] Common [facility] - diastolic [facility] height 2021-09-26 09:00:00 65 [in_i] [facility] weight 2021-09-26 09:00:00 237 [lb_av] [facility] temperature 2021-09-26 09:00:00 96.6 [degF] [facility] bmi 2021-09-26 09:00:00 39.43 kg/m2 [facility] blood pressure 2021-09-26 09:00:00 132 mm[Hg] Common [facility] - systolic [facility] blood pressure 2021-09-26 09:00:00 80 mm[Hg] [facility] - diastolic [facility] height 2021-08-15 08:40:00 65 [in_i] [facility] - [facility] weight 2021-08-15 08:40:00 237.9 [lb_av] [facility] temperature 2021-08-15 08:40:00 97.0 [degF] [facility] - [facility] bmi 2021-08-15 08:40:00 39.58 kg/m2 [facility] oximetry 2021-08-15 08:40:00 97 % [facility] respiratory rate 2021-08-15 08:40:00 17 /min Comm on [facility] blood pressure 2021-08-15 08:40:00 137 mm[Hg] Common [facility] - systolic [facility] blood pressure 2021-08-15 08:40:00 72 mm[Hg] Common [facility] - diastolic [facility] height 2021-08-15 10:00:00 65 [in_i] [facility] weight 2021-08-15 10:00:00 237.9 [lb_av] [facility] temperature 2021-08-15 10:00:00 97 [degF] [facility] bmi 2021-08-15 10:00:00 39.58 kg/m2 [facility] oximetry 2021-08-15 10:00:00 97 % [facility] respiratory rate 2021-08-15 10:00:00 17 /min Comm on [facility] blood pressure 2021-08-15 10:00:00 137 mm[Hg] Common [facility] - systolic [facility] blood pressure 2021-08-15 10:00:00 72 mm[Hg] Common [facility] - diastolic [facility] height 2021-07-26 09:00:00 65 [in_i] [facility] weight 2021-07-26 09:00:00 240 [lb_av] Common [facility] temperature 2021-07-26 09:00:00 97.6 [degF] [facility] bmi 2021-07-26 09:00:00 39.93 kg/m2 [facility] blood pressure 2021-07-26 09:00:00 136 mm[Hg] [facility] - systolic [facility] blood pressure 2021-07-26 09:00:00 84 mm[Hg] [facility] - diastolic [facility] height 2021-04-18 08:30:00 65 [in_i] [facility] weight 2021-04-18 08:30:00 240.2 [lb_av] [facility] temperature 2021-04-18 08:30:00 98.1 [degF] [facility] bmi 2021-04-18 08:30:00 39.97 kg/m2 [facility] oximetry 2021-04-18 08:30:00 96 % [facility] respiratory rate 2021-04-18 08:30:00 18 /min Comm on [facility] blood pressure 2021-04-18 08:30:00 138 mm[Hg] Common [facility] - systolic [facility] blood pressure 2021-04-18 08:30:00 82 mm[Hg] Common [facility] - diastolic [facility] height 2021-03-22 11:20:00 65 [in_i] Common S [facility] weight 2021-03-22 11:20:00 234.0 [lb_av] [facility] temperature 2021-03-22 11:20:00 97.7 [degF] [facility] bmi 2021-03-22 11:20:00 38.94 kg/m2 [facility] oximetry 2021-03-22 11:20:00 95 % [facility] respiratory rate 2021-03-22 11:20:00 18 /min Comm on [facility] blood pressure 2021-03-22 11:20:00 132 mm[Hg] Common [facility] - systolic [facility] blood pressure 2021-03-22 11:20:00 88 mm[Hg] [facility] diastolic [facility] height 2021-02-03 13:20:00 65 [in_i] [facility] weight 2021-02-03 13:20:00 237.4 [lb_av] [facility] temperature 2021-02-03 13:20:00 97.7 [degF] [facility] bmi 2021-02-03 13:20:00 39.5 kg/m2 [facility] oximetry 2021-02-03 13:20:00 96 % [facility] respiratory rate 2021-02-03 13:20:00 16 /min Comm on [facility] blood pressure 2021-02-03 13:20:00 134 mm[Hg] [facility] systolic [facility] blood pressure 2021-02-03 13:20:00 76 mm[Hg] [facility] diastolic [facility] Procedures Procedure Date / Time Performing Clinician Source Performed NOTICE OF BILLING 2022-06-05 15:15:15 Doctor Kae, [facility] PRACTICES FOR MEDICARE [facility] PATIENTS [facility] PATIENT FINANCIAL 2022-06-05 15:12:48 Doctor Unanellyigned, [facility] POLICY [facility] NO SHOW OR MISSED 2022-06-05 15:12:09 Doctor Kae, [facility] APPOINTMENT POLICY [facility] ACKNOWLEDGEMENT NOTICE OF PRIVACY 2022-06-05 15:11:47 Doctor Kae, [facility] PRACTICES [facility] ASSIGNMENT OF BENEFITS 2022-06-05 15:11:22 Doctor Kae, [facility] CONSENT/REFUSAL FOR 2022-06-05 15:11:00 Doctor Unassigned, [facility] DIAGNOSIS AND TREATMENT [facility] Plan of Care Planned Activity Planned Date Details Comments Source Future Scheduled 2022-11-10 [facility] Test 12:40:20 malignant neoplasm of colon (procedure) [code = 990442222] Future Scheduled 2022-11-10 [facility] Test 12:40:20 malignant neoplasm of colon (procedure) [code = 332221793] Future Scheduled 2022-11-10 [facility] Test 12:40:20 malignant neoplasm of colon (procedure) [code = 776620308] Future Scheduled 2022-11-10 COVID-19 VACCINE (#1) [facility] 12:40:20 [code = COVID-19 VACCINE (#1)] Future Scheduled 2022-11-10 [facility] Test 12:40:20 malignant neoplasm of colon (procedure) [code = 256878681] Future Scheduled 2022-11-10 [facility] Test 12:40:20 malignant neoplasm of colon (procedure) [code = 104632331] Future Scheduled 2022-11-10 SHINGLES VACCINES (1 [facility] 12:40:20 of 2) [code = SHINGLES VACCINES (1 of 2)] Future Scheduled 2022-11-10 65+ [facility] 12:40:20 VACCINE (1 - PCV) [code = 65+ PNEUMOCOCCAL VACCINE (1 - PCV)] Future Scheduled 2022-11-10 [facility]ACCINE [facility] 12:40:20 [code = INFLUENZA VACCINE] Encounters Start End Encounter Admission Attending Care Care Encounter Source Date/Time Date/Time Type Type Clinicians Facility Department ID 2022-08-07 Outpatient Holman, [facility] [id number] Common 10:49:00 Javi [id number] [facility] 2022-04-13 Outpatient Holman, [facility] [id number] Common 09:16:01 Javi [id number] [facility] 2021-12-29 Outpatient Holman, [facility] [id number] Common 09:23:00 Javi [id number] [facility] 2021-12-16 Outpatient Holman, [facility] [id number] Common 10:41:00 Javi [facility] 2021-11-30 [facility] [id number] Common 15:59:00 Javi [facility] 2021-11-22 [facility] [id number] Common 08:21:00 Javi [facility] 2021-07-26 [place] [facility] [place] [id number] Common 08:25:00 Javi [facility] 2021-06-22 [facility] [id number] Common 14:19:13 Javi [facility] 2021-06-22 [facility] [id number] Common 13:48:14 Javi [id number] [facility] 2021-06-22 Outpatient Holman, [place] [id number] Common 13:39:44 Javi [id number] [facility] 2021-06-22 [facility] [id number] Common 12:56:40 Javi [id number] [facility] 2021-06-22 [facility] [id number] Common 12:38:18 Javi [id number] [facility] 2021-06-22 [facility] Holman, [facility] [id number] Common 12:30:46 Javi [id number] [facility] 2021-06-22 Outpatient Holman, [facility] [id number] Common 12:02:41 Javi [id number] [facility] 2021-06-22 Outpatient Holman, [facility] [id number] Common 11:44:33 Javi [id number] [facility] 2021-06-22 [facility] [id number] Common 11:04:39 Javi [id number] [facility] 2022-10-26 2022-10-26 [facility] [id number] Univers 13:53:08 23:59:[address] [facility] 2022-10-26 2022-10-26 [facility] [id number] Univers 13:50:00 23:59:00 Encounter Mindy [place] [id number] ity of [facility] [id number] [id number] [facility] [address] 2022-10-20 2022-10-20 Office Fellow, Pulmonary UNIVERSIT 1.2.84 0.114 [id number] Univers 09:00:00 09:30:00 Visit Mindy Askew [facility] HEALTH 350.1. 13.10 [place] [id number] [address] 2022-10-20 2022-10-20 [facility] [id number] Univers 09:00:00 09:00:[address] [facility] 2022-08-25 2022-08-25 Tub Wash Operator Testing, [facility] Pulmonary Func tion UNIVERSIT 1.2.840.114 [id number] Univers 13:00:00 14:28:19 Visit HéctorMadalyn HEALTH 350.1. 13.10 [place] [id number] [address] 2022-08-25 2022-08-25 Outpatient R [facility] [id number] Univers 13:00:00 13:00:00 MADALYN espino [facility] 2022-08-14 2022-08-14 Telephone Fellow, UNIVERSIT 1.2.840.114 [id number] Univers 00:00:00 00:00:00 Pulmonary Y HEALTH 350.1.13.10 [place] [id number] [address] 2022-06-20 2022-06-20 Office Fellow, Pulmonary UNIVERSIT 1.2.84 0.114 [id number] Univers 11:00:00 11:30:00 Visit True Chung P Y HEALTH 350.1.13.10 [place] [id number] [facility] [address] 2022-06-20 2022-06-20 Outpatient R JULIET TRUE [facility] [id number] Univers 11:00:00 11:00:00 TRUE CHUNG i ty [facility] 2022-06-09 2022-06-09 Case De La RosaEMELIA 1.2.840.114 [id number] Univers 00:00:00 00:00:00 Management Karenjohn [place] 350.1.13.10 ity of [facility] 4.2.7.2.686 Rudy as [id number] [place] [address] 2022-06-05 2022-06-05 Outpatient R JOON HAYES [facility] 10 [id number] Univers 09:15:19 23:59:00 JOON HAYES i ty [facility] 2022-06-05 2022-06-05 [facility] 1.2.840.114 [id number] Univers 09:15:19 23:59:00 Encounter Joon [place] 350.1.13.10 ity [place] [id number] [facility] [address] 2022-05-01 2022-05-01 Telephone Fellow, UNIVERSIT 1.2.840.114 [id number] Univers 00:00:00 00:00:00 Pulmonary Y HEALTH 350.1.13.10 [place] [id number] [facility] [address] 2022-04-17 2022-04-17 OFFICE STLC STLC [id number] Co mmon 00:00:00 00:00:00 VISIT Spirit ESTAB PT - CHI LEVEL 4 [facility] 2021-12-30 2021-12-30 (WEB) STLC STLC [id number] Co mmon 00:00:00 00:00:00 Spirit - CHI [facility] 2021-12-29 2021-12-29 OFFICE STLMLC STLMLC [id number] Co mmon 00:00:00 00:00:00 VISIT EST Spir it PT LEVEL 3 [facility] 2021-12-29 2021-12-29 (TEL) STLMLC STLMLC [id number] Co mmon 00:00:00 00:00:00 [facility] 2021-12-13 2021-12-13 OFFICE STLMLC STLMLC [id number] Co mmon 00:00:00 00:00:00 VISIT [facility] PT - CHI LEVEL 4 [facility] 2021-11-29 2021-11-29 Office Fellow, Pulmonary UNIVERSIT 1.2.84 0.114 [id number] Univers 10:00:00 11:00:00 [facility] 350.1. 13.10 [facility] 4[facility]7.2.686 [facility] [id number] [place] [address] 2021-11-29 2021-11-29 Outpatient R AZAR [facility] [id number] Univers 10:00:00 10:00:00 MINDY espino o [facility] 2021-11-25 2021-11-25 OFFICE STLMLC STLMLC [id number] Co mmon 00:00:00 00:00:00 VISIT [facility] PT - CHI LEVEL 4 [facility] 2021-11-22 2021-11-22 (TEL) STLMLC STLMLC [id number] Co mmon 00:00:00 00:00:00 [facility] 2021-11-21 2021-11-21 (WEB) STLMLC STLMLC [id number] Co mmon 00:00:00 00:00:00 [facility] 2021-09-26 2021-09-26 OFFICE STLMLC STLMLC [id number] Co mmon 00:00:00 00:00:00 VISIT EST Spir it PT LEVEL 3 [facility] 2021-08-15 2021-08-15 (TEL) STLMLC STLMLC [id number] Co mmon 00:00:00 00:00:00 [facility] 2021-08-15 2021-08-15 OFFICE STLMLC STLMLC [id number] Co mmon 00:00:00 00:00:00 VISIT Spirit ESTAB PT - CHI LEVEL 4 [facility] 2021-08-15 2021-08-15 SUB ANNUAL STLMLC STLMLC [id number] Common 00:00:00 00:00:00 MCR Spirit WELLNESS - CHI VISIT [facility] 2021-08-03 2021-08-03 (TEL) STLMLC STLMLC [id number] Co mmon 00:00:00 00:00:00 Spirit [facility]I [facility] 2021-08-02 2021-08-02 (TEL) STLMLC STLMLC [id number] Co mmon 00:00:00 00:00:00 Spirit [facility] 2021-07-26 2021-07-26 OFFICE STLMLC STLMLC [id number] Co mmon 00:00:00 00:00:00 VISIT NEW Spir it PT LEVEL 4 - [facility] 2021-07-14 2021-07-14 (TEL) STLMLC STLMLC [id number] Co mmon 00:00:00 00:00:00 Spirit [facility] 2021-07-13 2021-07-13 (TEL) STLMLC STLMLC [id number] Co mmon 00:00:00 00:00:00 Spirit [facility] 2021-05-30 2021-05-30 OFFICE STLMLC STLMLC [id number] Co mmon 00:00:00 00:00:00 VISIT Spirit ESTAB PT - CHI LEVEL 1 [facility] 2021-05-30 2021-05-30 (TEL) STLMLC STLMLC [id number] Co mmon 00:00:00 00:00:00 Spirit [facility] 2021-04-27 2021-04-27 (COVID STLMLC STLMLC [id number] Co mmon 00:00:00 00:00:00 Inj) COVID Spi rit Injection - CHI [facility] 2021-04-18 2021-04-18 OFFICE STLMLC STLMLC [id number] Co mmon 00:00:00 00:00:00 VISIT Spirit ESTAB PT - CHI LEVEL 4 [facility] 2021-03-22 2021-03-22 (TEL) STLMLC STLMLC [id number] Co mmon 00:00:00 00:00:00 [facility] 2021-03-22 2021-03-22 OFFICE STLMLC STLMLC [id number] Co mmon 00:00:00 00:00:00 VISIT EST Spir it PT LEVEL 3 [facility] 2021-03-17 2021-03-17 (TEL) STLMLC STLMLC [id number] Co mmon 00:00:00 00:00:00 [facility] 2021-02-03 2021-02-03 OFFICE STLMLC STLMLC [id number] Co mmon 00:00:00 00:00:00 VISIT EST Spir it PT LEVEL 3 [facility] 2020-12-15 2020-12-15 Outpatient STLMLC STLMLC [id number] Common 00:00:00 00:00:00 [facility] 2020-12-15 2020-12-15 Outpatient STLMLC STLMLC [id number] Common 00:00:00 00:00:00 [facility] 2020-10-20 2020-10-20 Outpatient STLMLC STLMLC [id number] Common 00:00:00 00:00:00 [facility] 2020-09-22 2020-09-22 Outpatient STLMLC STLMLC [id number] Common 00:00:00 00:00:00 [facility] 2020-08-04 2020-08-04 Outpatient STLMLC STLMLC [id number] Common 00:00:00 00:00:00 [facility] 2020-06-26 2020-06-26 Outpatient STLMLC STLMLC [id number] Common 00:00:00 00:00:00 [facility] 2020-04-14 2020-04-14 Outpatient STLMLC STLMLC [id number] Common 00:00:00 00:00:00 [facility] 2020-03-03 2020-03-03 Outpatient STLMLC STLMLC [id number] Common 00:00:00 00:00:00 [facility] 2020-02-18 2020-02-18 [facility] [id number] Common 00:00:00 00:00:00 [facility] 2020-02-04 2020-02-04 [facility] [id number] Common 14:50:00 14:50:[address] [facility] 2020-01-01 2020-01-01 [facility] [id number] Common 09:15:00 09:15:[address] [facility] 2019-10-01 2019-10-01 [facility] [id number] Common 09:00:00 09:00:[address] [facility] 2019-10-01 2019-10-01 [facility] [id number] Common 08:30:00 08:30:[address] [facility] 2019-09-29 2019-09-29 [facility] [id number] Common 13:21:00 13:21:[address] [facility] 2019-07-01 2019-07-01 [facility] [id number] Common 08:30:00 08:30:[address] [facility] 2019-03-31 2019-03-31 [facility] [id number] Common 11:30:00 11:30:[address] [facility] 2019-03-21 2019-03-21 [facility] [id number] Common 15:30:00 15:30:[address] [facility] 2019-02-24 2019-02-24 [facility] [id number] Common 10:00:00 10:00:[address] [facility] 2018-12-18 2018-12-18 [facility] [id number] Common 08:15:00 08:15:[address] [facility] 2018-12-13 2018-12-13 [facility] [id number] Common 11:43:00 11:43:[address] [facility] 2018-09-17 2018-09-17 [facility] [id number] Common 09:00:00 09:00:[address] [facility] 2018-08-23 2018-08-23 [facility] [id number] Common 10:27:00 10:27:[address] [facility] 2018-08-20 2018-08-20 [facility] [id number] Common 10:19:00 10:19:[address] [facility] 2018-08-19 2018-08-19 [facility] [id number] Common 13:00:00 13:00:[address] [facility] 2018-08-15 2018-08-15 [facility] [id number] Common 11:55:00 11:55:[address] [facility] 2018-08-13 2018-08-13 [facility] [id number] Common 15:21:00 15:21:[address] [facility] 2018-08-13 2018-08-13 [facility] [id number] Common 11:15:00 11:15:[address] [facility] 2018-08-02 2018-08-02 [facility] [id number] Common 09:15:00 09:15:[address] [facility] 2017-12-13 2017-12-13 [facility] [id number] Common 08:30:00 08:30:00 t [employer] [facility] [address] [facility] Results This patient has no known results.
[2022-12-08] MEDS ORDERED: HYDROCODONE/APAP 10/325 TAB ONE (20:43)
[2022-12-08] MEDS ORDERED: ONDANSETRON 4 MG (ODT) TAB ONE (20:43)
--- NOTE | 2022-12-08 21:11 | RAD REPORT ---
EXAM DESCRIPTION: RAD - Tib Fib Right - 12/08/2022 8:48 pm CLINICAL HISTORY: Pain;Swelling COMPARISON: No comparisons FINDINGS/IMPRESSION: No acute fracture. Distal fibular plate and screw and medial malleolar screws a re intact. Secondary degenerative changes are present at the ankle. No hardware complications. Periph eral vascular calcifications. Soft tissue swelling is present laterally.
--- NOTE | 2022-12-08 22:10 | RAD REPORT ---
EXAM DESCRIPTION: US - Extremity Venous Uni Ltd - 12/08/2022 9:38 pm CLINICAL HISTORY: pain COMPARISON: None. TECHNIQUE: Real-time sonographic evaluation of the right lower extremity deep venous system was perf ormed. FINDINGS: Normal compressibility, flow augmentation, phasic flow and spontaneous flow is identified in the rightlower extremity deep venous system. No intraluminal filling defects seen. IMPRESSION: No DVT in the right lower extremity.
--- NOTE | 2022-12-08 22:26 | ER ---
Nurse's Notes [facility] Name: Donovan Richardson Age: 77 yrs Sex: Male : 1945 Arrival Date: 12/08/2022 Time: 19:13 Bed 6 Private MD: Diagnosis: Cellulitis of right lower limb;Contusion of right ankle Presentation: 12/08 20:10 Chief complaint: Patient states: Pt reports right ankle pain and swelling x3 days, jb4 getting worse. Coronavirus screen: At this time, the client does not indicate any symptoms associated with coronavirus-19. Ebola Screen: No symptoms or risks identified at this time. 20:10 Method Of Arrival: Ambulatory jb4 20:10 Initial Sepsis Screen: Does the patient meet any 2 criteria? HR > 90 bpm. Yes Does the jb4 patient have a suspected source of infection? No. Patient's initial sepsis screen is negative. Risk Assessment: Do you want to hurt yourself or someone else? Patient reports no desire to harm self or others. Onset of symptoms was December 08, 2022. Transition of care: patient was not received from another setting of care. 20:10 Acuity: TOMMIE 3 jb4 Historical: - Allergies: 20:15 No Known Allergies; jb4 - Home Meds: 20:15 atorvastatin 20 mg Oral tab 1 tab once daily [Active]; aspirin 81 mg Oral TbEC 1 tab jb4 once daily [Active]; - PMHx: 20:15 Hypertension; jb4 Screenin:43 [facility] ED Fall Risk Assessment (Adult) History of falling in the last 3 months, jb4 including since admission No falls in past 3 months (0 pts) Confusion or Disorientation No (0 pts) Score/Fall Risk Level 0 - 2 = Low Risk Oriented to surroundings, Maintained a safe environment. Abuse screen: Denies threats or abuse. Nutritional screening: No deficits noted. Tuberculosis screening: No symptoms or risk factors identified. Assessment: 20:42 General: Appears in no apparent distress. comfortable, Behavior is calm, cooperative, jb4 appropriate for age. Pain: Complains of pain in right ankle Pain does not radiate. Pain currently is 8 out of 10 on a pain scale. Quality of pain is described as burning. Neuro: Level of Consciousness is awake, alert, obeys commands, Oriented to person, place, time, situation. Cardiovascular: Patient's skin is warm and dry. Respiratory: Airway is patent Respiratory effort is even, unlabored, Respiratory pattern is regular, symmetrical. GI: No signs and/or symptoms were reported involving the gastrointestinal system. : No signs and/or symptoms were reported regarding the genitourinary system. EENT: No signs and/or symptoms were reported regarding the EENT system. Derm: Skin is intact, Skin is pink, warm \T\ dry. Redness and warmth noted to the right ankle. 21:55 Reassessment: Patient appears in no apparent distress at this time. Patient and/or jb4 family updated on plan of care and expected duration. Pain level reassessed. Patient is alert, oriented x 3, equal unlabored respirations, skin warm/dry/pink. 22:43 Reassessment: Patient appears in no apparent distress at this time. Patient and/or jb4 family updated on plan of care and expected duration. Pain level reassessed. Patient is alert, oriented x 3, equal unlabored respirations, skin warm/dry/pink. Vital Signs: 20:10 BP 146 / 75; Pulse 91; Resp 16; Temp 98.7; Pulse Ox 97% on R/A; jb4 20:42 BP 124 / 51; Pulse 87; Resp 16; Pulse Ox 98% on R/A; jb4 21:55 BP 169 / 72; Pulse 87; Resp 16; Pulse Ox 95% on R/A; jb4 ED Course: 19:15 Patient arrived in ED. jj6 19:34 Mari Johnston PA-C [facility] sb4 19:34 Blayne Lee MD is Attending Physician. sb4 20:05 Juan Penaloza, LUCIA is Primary Nurse. jb4 20:16 Arm band placed on. mb9 20:50 Tib Fib Right XRAY In Process Unspecified. EDMS 21:38 Triage completed. jb4 21:40 Extremity Venous Uni Ltd US In Process Unspecified. EDMS 22:43 Patient has correct armband on for positive identification. Bed in low position. Call jb4 light in reach. Side rails up X 1. 22:43 No provider procedures requiring assistance completed. Patient did not have IV access jb4 during this emergency room visit. Administered Medications: 20:42 Drug: [place] PO 10 mg-325 mg 1 tabs Route: PO; jb4 22:42 Follow up: Response: No adverse reaction; Marked relief of symptoms jb4 20:42 Drug: Ondansetron PO 4 mg Route: PO; jb4 22:42 Follow up: Response: No adverse reaction; Marked relief of symptoms jb4 22:42 Not Given (Patient Refused): Ketorolac IM 30 mg IM once jb4 Medication: 22:44 VIS not applicable for this client. jb4 Outcome: 22: Discharge ordered by . sb4 :43 Discharged to home ambulatory. jb4 22:43 Condition: stable 22:43 Discharge instructions given to patient, Instructed on discharge instructions, follow up and referral plans. no drinking with medication, no driving heavy equipment, medication usage, Demonstrated understanding of instructions, follow-up care, medications, Prescriptions given X 3. 22:44 Patient left the ED. jb4 Signatures: Dispatcher [employer] EDMS Juan Penaloza, RN RN jb4 Carmen Espinoza6 Mari Johnston PA-C PA-C sb4 Joyce Capps RN RN mb9
--- NOTE | 2022-12-08 22:26 | EDPHYS ---
Physician Documentation [facility] Name: Donovan Richardson Age: 77 yrs Sex: Male : 1945 Arrival Date: 12/08/2022 Time: 19:13 Bed 6 Private MD: ED Physician Blayne Lee HPI: 12/08 20:34 This 77 yrs old Male presents to ER via Unassigned with complaints of Leg sb4 Pain, Leg Swelling. 20:34 The patient presents with pain, that is acute, swelling, tenderness. The complaints sb4 affect the lateral aspect of right calf, right ankle and medial aspect of right calf. Context: resulted from an unknown cause, the patient can partially bear weight, the patient is able to ambulate, with moderate difficulty, Problem is a result from a previous injury: No. Onset: The symptoms/episode began/occurred today. Modifying factors: The symptoms are alleviated by remaining still, the symptoms are aggravated by movement, weight bearing. Associated signs and symptoms: Pertinent positives: swelling, warmth, Pertinent negatives fever, nausea, tingling. Treatment prior to arrival includes: no previous treatment. The patient has not experienced similar symptoms in the past. Historical: - Allergies: 20:15 No Known Allergies; jb4 - Home Meds: 20:15 atorvastatin 20 mg Oral tab 1 tab once daily [Active]; aspirin 81 mg Oral TbEC 1 tab jb4 once daily [Active]; - PMHx: 20:15 Hypertension; jb4 ROS: 20:34 Constitutional: Negative for fever, chills, and weight loss, Eyes: Negative for injury, sb4 pain, redness, and discharge, ENT: Negative for injury, pain, and discharge, Cardiovascular: Negative for chest pain, palpitations, and edema, Respiratory: Negative for shortness of breath, cough, wheezing, and pleuritic chest pain, Abdomen/GI: Negative for abdominal pain, nausea, vomiting, diarrhea, and constipation, Back: Negative for injury and pain, Skin: Negative for injury, rash, and discoloration. 20:34 MS/extremity: Positive for erythema, pain, tenderness, warmth, of the medial aspect of right calf and right ankle and lateral aspect of right calf, Negative for abrasion, bite, contusion, ecchymosis, paresthesias. 20:34 All other systems are negative. Exam: 20:34 Constitutional: This is a well developed, well nourished patient who is awake, alert, sb4 and in no acute distress. Head/Face: Normocephalic, atraumatic. Eyes: Extra-ocular motions intact. Periorbital areas with no swelling, redness, or edema. Cardiovascular: Regular rate and rhythm with a normal S1 and S2. Respiratory: Lungs have equal breath sounds bilaterally, clear to auscultation and percussion. No rales, rhonchi or wheezes noted. No increased work of breathing, no retractions or nasal flaring. Abdomen/GI: Soft, non-tender, no distension. Back: No spinal tenderness. No costovertebral tenderness. Full range of motion. Skin: Warm, dry with normal turgor. Normal color with no rashes, no lesions, and no evidence of cellulitis. 20:34 Musculoskeletal/extremity: Extremities: ROM: intact in all extremities, Circulation is intact in all extremities. Sensation intact. DVT Exam: pain, swelling, tenderness, increased warmth, of the right leg. Vital Signs: 20:10 BP 146 / 75; Pulse 91; Resp 16; Temp 98.7; Pulse Ox 97% on R/A; jb4 20:42 BP 124 / 51; Pulse 87; Resp 16; Pulse Ox 98% on R/A; jb4 21:55 BP 169 / 72; Pulse 87; Resp 16; Pulse Ox 95% on R/A; jb4 MDM: 19:34 Patient medically screened. sb4 20:34 Differential diagnosis: tendonitis, DVT, displacement of hardware, acute fracture, sb4 cellulitis, septic joint. 22:24 Data reviewed: vital signs, nurses notes, radiologic studies, plain films, ultrasound, sb4 and as a result, I will discharge patient. Test considered but Not performed: Labs: not indicated. Historians other than the Patient: Spouse/Significant Other: . Care significantly affected by the following chronic conditions: Hypertension. Counseling: I had a detailed discussion with the patient and/or guardian regarding: the historical points, exam findings, and any diagnostic results supporting the discharge/admit diagnosis, radiology results, to return to the emergency department if symptoms worsen or persist or if there are any questions or concerns that arise at home. Medication response: you jain. 12/08 20:25 Order name: Extremity Venous Uni Ltd ; Complete Time: 22:14 sb4 12/08 20:25 Order name: Tib Fib Right XRAY; Complete Time: 21:13 sb4 Administered Medications: 20:42 Drug: [place] PO 10 mg-325 mg 1 tabs Route: PO; jb4 22:42 Follow up: Response: No adverse reaction; Marked relief of symptoms jb4 20:42 Drug: Ondansetron PO 4 mg Route: PO; jb4 22:42 Follow up: Response: No adverse reaction; Marked relief of symptoms jb4 22:42 Not Given (Patient Refused): Ketorolac IM 30 mg IM once jb4 Disposition: 12/09 19:18 Co-signature as Attending Physician, Blayne Lee MD I reviewed the patient's care rt provided by the Advanced Practice Provider and agree with the diagnosis and treatment plan. Disposition Summary: 12/08/22 22:26 Discharge Ordered Location: Home sb4 Problem: new sb4 Symptoms: have improved sb4 Condition: Stable sb4 Diagnosis - Cellulitis of right lower limb sb4 - Contusion of right ankle sb4 Followup: sb4 - With: Private Physician - When: 2 - 3 days - Reason: Wound Recheck, Recheck today's complaints, Re-evaluation by your physician Discharge Instructions: - Discharge Summary Sheet sb4 - Cellulitis, Adult sb4 - Ankle Sprain, [id number] sb4 Forms: - Medication Reconciliation Form sb4 - Thank You Letter sb4 - Antibiotic Education sb4 - Prescription Opioid Use sb4 - Patient Portal Instructions sb4 Prescriptions: - Cephalexin 500 mg Oral Capsule - take 1 capsule by ORAL route every 12 hours for 10 days; 20 capsule; Refills: sb4 0, Product Selection Permitted - Diclofenac Sodium 75 mg Oral Tablet Sustained Release - take 1 tablet by ORAL route 2 times per day; 30 tablet; Refills: 0, Product sb4 Selection Permitted - Tramadol 50 mg Oral Tablet - take 1 tablet by ORAL route every 8 hours as needed; 12 tablet; Refills: 0, sb4 Product Selection Permitted Signatures: Dispatcher [employer] Juan Coyne RN RN jb4 Mari Johnston PA-C PA-C sb4 Blayne Lee MD MD rt
== END 2022-12-08 22:44 | disposition home or self-care (01) ==
LOC: ER 19:13
DX: L03.115 Cellulitis of right lower limb (principal); S90.01XA Contusion of right ankle, initial encounter; I10 Essential (primary) hypertension
CPT/HCPCS: 73590; 93971; 99284; Q0162

== ENCOUNTER 2024-01-13 12:52 | Emergency (ER) | payer OTHER ==
[2024-01-13 13:39] LABS: Absolute Eosinophils 0.1 K/uL (0-0.5); Absolute Lymphocytes (CBC) 2.7 K/uL (0.7-4.9); Absolute Monocytes 0.6 K/uL (0.1-1.3); Absolute Neutrophil 3.8 K/uL (1.8-8.0); Basophils % 0.5 % (0-1.3); Eosinophils % 1.4 % (0-4.4); Hematocrit 38.5 % (39.6-49.0); Hemoglobin 12.6 g/dL (13.6-17.9); Lymphocytes % 37.1 % (15.3-44.8); MCH 29.3 pg (27.0-35.0); MCHC 32.9 g/dL (32.0-36.0); MPV 7.5 fL (7.6-11.3); Monocytes % 7.7 % (3.3-12.3); Neutrophils % 53.3 % (41.7-73.7); Platelets 284 thou/uL (152-406); RBC Red Blood Cell Count 4.32 M/uL (4.33-5.43); Red Cell Distribution Width 14.2 % (12.1-15.2)
[2024-01-13 13:43] LABS: PT Prothrombin Time 10.5 SECONDS (9.4-12.5); Protime INR 0.94
--- NOTE | 2024-01-13 13:46 | RAD REPORT ---
EXAM DESCRIPTION: CT - Ct Stroke Brain Wo Cont - 01/13/2024 1:40 pm CLINICAL HISTORY: STROKE ALERT COMPARISON: Head angio dated 01/13/2024 TECHNIQUE: All CT scans are performed using dose optimization technique as appropriate and may inclu de automated exposure control or mA/KV adjustment according to patient size. FINDINGS: No intracranial hemorrhage, hydrocephalus or extra-axial fluid collection.No areas of brai n edema or evidence of midline shift. Mild chronic small vessel ischemic changes . The paranasal sinuses and mastoids are clear. The calvarium is intact. IMPRESSION: No acute intracranial abnormality. Conveyed to Dr. Adams by Dr. Dominguez at 1342 on 01/13/24
[2024-01-13] MEDS ORDERED: TENECTEPLASE 50 MG/10 ML VIAL IV ONE (13:48)
[2024-01-13] MEDS ORDERED: MECLIZINE HCL 12.5 MG TAB ONE (13:50)
--- NOTE | 2024-01-13 13:51 | RAD REPORT ---
EXAM DESCRIPTION: CT - Neck Angio - 01/13/2024 1:41 pm CLINICAL HISTORY: PAIN COMPARISON: No comparisons TECHNIQUE: CT angiography of the neck vessels was performed with maximum intensity reformatted image s. CAROTID STENOSIS REFERENCE USING NASCET CRITERIA: Mild - <50% stenosis. Moderate - 50-69% stenosis. Severe - 70-94% stenosis. Near occlusion - 95-99% stenosis. Occluded - 100% stenosis. All CT scans are performed using dose optimization technique as appropriate and may include automated exposure control or mA/KV adjustment according to patient size. FINDINGS: A left aortic arch is identified with normal three vessel configuration of the great vesse ls. No significant flow abnormality is seen of the common carotid bilaterally. Mild bilateral distal CCA calcified and noncalcified plaque. No significant stenosis is identified involving the cervical segments of both internal carotid arteri es. Normal flow is seen within both vertebral arteries. Left dominant vertebral artery. The right vertebr al artery is diminutive but patent. IMPRESSION: No significant flow abnormality of the neck vessels is identified.
[2024-01-13 13:56] LABS: Albumin 3.5 g/dL (3.4-5.0); Albumin/Globulin Ratio 0.9 (1.1-1.8); Anion Gap 11.8 mEq/L (5.0-15.0); Bilirubin Direct 0.2 mg/dL (0-0.2); Bilirubin Indirect, Calculated 0.7 mg/dL (0.2-0.8); Bilirubin Total 0.9 mg/dL (0.2-1.0); Globulin 3.7 g/dL (2.3-3.5); Potassium 3.8 mEq/L (3.5-5.1); Protein, Total 7.2 g/dL (6.4-8.2); Troponin High Sensitivity 20.6 pg/mL (<58.9)
--- NOTE | 2024-01-13 13:57 | RAD REPORT ---
EXAM DESCRIPTION: CT - Head angio - 01/13/2024 1:41 pm CLINICAL HISTORY: DIZZY COMPARISON: Head Brain Wo Cont dated 01/27/2016 TECHNIQUE: CT angiography of the head was performed with maximum intensity reformatted images. 3D ma ximum intensity pixel (MIP) reconstructions were created All CT scans are performed using dose optimization technique as appropriate and may include automated exposure control or mA/KV adjustment according to patient size. FINDINGS: Anterior circulation: No aneurysm or large vessel occlusion. No hemodynamically significant stenosis. No arteriovenous malf ormation identified. Calcified cavernous carotids. Posterior circulation: No aneurysm or large vessel occlusion. No hemodynamically significant stenosis. No arteriovenous malf ormation identified. The right vertebral artery is severely diminutive but likely patent. Left verteb ral artery is dominant. IMPRESSION: No significant flow abnormality is detected.
--- NOTE | 2024-01-13 14:01 | ER ---
Nurse's Notes [facility] Name: Donovan Richardson Age: 78 yrs Sex: Male : 1945 Arrival Date: 01/13/2024 Time: 12:52 Bed 2 Private MD: Diagnosis: Cerebral infarction, unspecified-DIZZY, VERTIGO, POSTERIOR CIRCULATION;Vomiting Presentation: 01/12 13:14 Chief complaint: Patient states: DIZZINESS, NAUSEA, VOMITING ALL OF A SUDDEN STARTED 1 db HOUR AGO. Coronavirus screen: Client denies travel out of the [place] in the last 14 days. At this time, the client does not indicate any symptoms associated with coronavirus-19. Ebola Screen: Patient negative for fever greater than or equal to 101.5 degrees Fahrenheit, and additional compatible Ebola Virus Disease symptoms Patient denies exposure to infectious person. Patient denies travel to an Ebola-affected area in the 21 days before illness onset. No symptoms or risks identified at this time. Initial Sepsis Screen: Does the patient meet any 2 criteria? No. Patient's initial sepsis screen is negative. Does the patient have a suspected source of infection? No. Patient's initial sepsis screen is negative. Risk Assessment: Do you want to hurt yourself or someone else? Patient reports no desire to harm self or others. Onset of symptoms was January 13, 2024. 13:14 Method Of Arrival: Ambulatory db 13:14 Acuity: TOMMIE 2 db Historical: - Allergies: 13:15 No Known Allergies; db - Home Meds: 13:15 aspirin 81 mg Oral TbEC 1 tab once daily [Active]; atorvastatin 20 mg Oral tab 1 tab db once daily [Active]; losartan oral [Active]; - PMHx: 13:15 Hypertension; db - Immunization history:: Adult Immunizations unknown. - Infectious Disease History:: Denies. - Social history:: Smoking status: Patient denies any tobacco usage or history of. Screenin:30 [facility] ED Fall Risk Assessment (Adult) History of falling in the last 3 months, ld1 including since admission No falls in past 3 months (0 pts) Confusion or Disorientation No (0 pts) Intoxicated or Sedated No (0 pts) Impaired Gait No (0 pts) Mobility Assist Device Used No (0 pt) Altered Elimination No (0 pt) Score/Fall Risk Level 0 - 2 = Low Risk Oriented to surroundings, Maintained a safe environment, Educated pt \T\ family on fall prevention, incl call for assistance when getting out of bed, Assessed \T\ reinforced patient's understanding of fall precautions, Provided non-skid footwear, Hourly rounding (assess needs \T\ fall precautionary measures) done, Used ambulatory aids as needed (educated on \T\ assisted with), Used gait belt as appropriate. Abuse screen: Denies threats or abuse. Denies injuries from another. Nutritional screening: No deficits noted. Tuberculosis screening: No symptoms or risk factors identified. 13:45 VAN Screening: Arm Drift: Patient shows no arm weakness. Patient is VAN negative. [facility] Swallow Protocol Brief Cognitive Screen What is your name? Normal, Where are you right now? Normal, What year is it? Normal. Oral Mechanism Examination Facial Symmetry: Normal, Motion: Normal, Lip Closure: Normal, Oral Mechanism Result: Normal. 3 oz Water Swallow Challenge: Pt able to drink all water without stopping, coughing, choking or throat clearing: Yes Result: PASS MD Notified: Jasiel Adams MD. Assessment: 13:29 Reassessment: ERP at bedside assessing patient. Code stroke called at this time. ld1 13:30 General: Appears in no apparent distress. comfortable, Behavior is calm, cooperative, ld1 appropriate for age. Pain: Denies pain. Neuro: Level of Consciousness is awake, alert, obeys commands, Oriented to person, place, time, situation, Appropriate for age. Neuro: Nystagmus to left sided gaze. ERP aware.. Reports dizziness. Cardiovascular: Capillary refill < 3 seconds Patient's skin is warm and dry. Rhythm is sinus bradycardia. Respiratory: Airway is patent Respiratory effort is even, unlabored. GI: Abdomen is round non-distended, Reports nausea, vomiting. : No signs and/or symptoms were reported regarding the genitourinary system. EENT: No signs and/or symptoms were reported regarding the EENT system. Derm: No signs and/or symptoms reported regarding the dermatologic system. Musculoskeletal: No signs and/or symptoms reported regarding the musculoskeletal system. 13:30 Reassessment: Pt to CT at this time. ld1 14:00 Reassessment: Patient appears in no apparent distress at this time. No changes from ld1 previously documented assessment. Patient and/or family updated on plan of care and expected duration. Pain level reassessed. 14:47 Reassessment: Patient appears in no apparent distress at this time. No changes from ld1 previously documented assessment. Patient and/or family updated on plan of care and expected duration. Pain level reassessed. Patient is alert, oriented x 3, equal unlabored respirations, skin warm/dry/pink. Patient denies pain at this time. 14:47 Reassessment: EMS at bedside for transport to [facility]. ld1 Vital Signs: 13:14 BP 194 / 88; Pulse 51; Resp 18; Temp 98.6(O); Pulse Ox 95% ; Weight 106.59 kg; Height 5 db ft. 6 in. ; Pain 0/10; 13:30 BP 162 / 72; Pulse 53; Resp 18; Pulse Ox 99% on R/A; Weight 108.41 kg; Height 5 ft. 9 ld1 in. ; Pain 0/10; 13:51 BP 184 / 76; Pulse 76; Resp 18; Pulse Ox 96% on R/A; ld1 14:15 BP 173 / 79; Pulse 55; Resp 18; Pulse Ox 99% on R/A; ld1 14:30 BP 178 / 74; Pulse 57; Resp 18; Pulse Ox 99% on R/A; ld1 14:45 BP 172 / 78; Pulse 55; Resp 18; Pulse Ox 99% on R/A; ld1 13:30 Body Mass Index 35.29 (108.41 kg, 175.26 cm) ld1 13:14 Pain Scale: Adult db 13:30 Pain Scale: Adult ld1 ED Course: 12:55 Patient arrived in ED. mg5 13:15 Triage completed. db 13:15 Jasiel Adams MD is Attending Physician. nikky 13:16 Arm band placed on Patient placed in an exam room. db 13:27 EKG done, by ED staff, reviewed by Jasiel Adams MD. mb9 13:29 Inserted saline lock: 20 gauge in left antecubital area, using aseptic technique. Blood ld1 collected. Flushed with 10 mL NS. 13:30 Patient has correct armband on for positive identification. Placed in gown. Bed in low ld1 position. Call light in reach. Side rails up X2. phototypesetting equipment monitor on. Pulse ox on. NIBP on. Door closed. Noise minimized. Warm blanket given. 13:30 No provider procedures requiring assistance completed. ld1 13:32 Leonila Lopez, LUCIA is Primary Nurse. ld1 13:42 CT Stroke Brain w/o Contrast In Process Unspecified. EDMS 13:42 CT Neck Angio In Process Unspecified. EDMS 13:42 Head angio In Process Unspecified. EDMS 13:51 Inserted saline lock: 18 gauge in right antecubital area, using aseptic technique. ld1 Blood collected. Flushed with 10 mL NS. 13:51 Inserted saline lock: 18 gauge in right antecubital area, using aseptic technique. hb Flushed with 10 mL NS. 14:11 \T\1346 initiated a transfer with Sarthka Vera Rn from the [facility]/ \T\[address] Xochitl Root the neuro confectionery cooker for [facility] with Dr. Adams for patient transfer consultation. \T\[address] Daniel the emergency room doctor confectionery cooker for [facility] with Dr. Adams for patient transfer consultation. /\T\ 1357 administrative approval given by Sarthak Vera Rn, patient has been accepted to [facility] ED, Dr. Francesca Daniel has accepted the patient in transfer/ report to be called to [phone]. 14:12 XRAY Chest (1 view) In Process Unspecified. EDMS 14:51 Patient transferred, IV remains in place. ld1 Administered Medications: 13:25 Drug: NS 0.9% IV 500 ml IV at bolus once Route: IV; Rate: bolus; Site: left antecubital;ld1 13:25 Drug: NS 0.9% IV 1000 ml IV at 125 ml/hr continuous Route: IV; Rate: 125 ml/hr; Site: ld1 left antecubital; 13:25 Drug: Ondansetron IVP 4 mg IVP once; over 2 minutes Route: IVP; Site: left antecubital; ld1 13:45 Drug: foLIC Acid IVPB 1 mg IVPB once Route: IVPB; Site: right antecubital; ld1 13:52 Drug: NS 0.9% IV 500 ml IV at bolus once Route: IV; Rate: bolus; Site: right mb9 antecubital; 13:52 Drug: Meclizine PO 25 mg PO once Route: PO; mb9 14:00 Drug: TNK FOR STROKE - Tenecteplase IV (Administer 10 ml NS flush BEFORE and ld1 AFTER tenecteplase) 0.25 mg/kg IV at per protocol once; MAX DOSE 25 mg, IVP over 5 seconds {Co-Signature: arsen (Joyce Davis RN).} Route: IV; Rate: per protocol; Site: left antecubital; Medication: 13:30 VIS not applicable for this client. ld1 Point of Care Testing: Blood Glucose: 13:52 Blood Glucose: 103 mg/dL; hb Ranges: Outcome: 14:00 ER care complete, transfer ordered by MD. sher 14:51 Transferred by ground EMS ld1 14:51 Condition: stable 14:51 Instructed on the need for transfer, 14:51 Patient left the ED. ld1 Signatures: Dispatcher [employer] Jasiel Durand MD MD cha Baxter, Heather, RN RN Ana Viramontes Lauren, RN RN ld1 Kala Braun RN RN Joyce Davis, RN RN Teresa Salinas [facility] Joyce Davis RN9
--- NOTE | 2024-01-13 14:01 | EDPHYS ---
Physician Documentation [facility] Name: Donovan Richardson Age: 78 yrs Sex: Male : 1945 Arrival Date: 01/13/2024 Time: 12:52 Bed 2 Private MD: ED Physician Jasiel Adams HPI: 01/12 13:52 This 78 yrs old Male presents to ER via Ambulatory with complaints of nikky Vomiting, Sweating. 13:52 The patient presents to the emergency department with nausea, vomiting, that is nikky intermittent. Onset: The symptoms/episode began/occurred just prior to arrival, 1 hour(s) ago. Possible causes: unknown. The symptoms are aggravated by nothing. The symptoms are alleviated by nothing. Severity of symptoms: At their worst the symptoms were moderate in the emergency department the symptoms have resolved. The patient has not experienced similar symptoms in the past. Historical: - Allergies: 13:15 No Known Allergies; db - Home Meds: 13:15 aspirin 81 mg Oral TbEC 1 tab once daily [Active]; atorvastatin 20 mg Oral tab 1 tab db once daily [Active]; losartan oral [Active]; - PMHx: 13:15 Hypertension; db - Immunization history:: Adult Immunizations unknown. - Infectious Disease History:: Denies. - Social history:: Smoking status: Patient denies any tobacco usage or history of. ROS: 13:53 Constitutional: Negative for fever, chills, and weight loss, Eyes: Negative for injury, nikky pain, redness, and discharge, ENT: Negative for injury, pain, and discharge, Neck: Negative for injury, pain, and swelling, Cardiovascular: Negative for chest pain, palpitations, and edema, Respiratory: Negative for shortness of breath, cough, wheezing, and pleuritic chest pain, Abdomen/GI: Negative for abdominal pain, nausea, vomiting, diarrhea, and constipation, Back: Negative for injury and pain, : Negative for injury, bleeding, discharge, and swelling, MS/Extremity: Negative for injury and deformity, Skin: Negative for injury, rash, and discoloration, Psych: Negative for depression, anxiety, suicide ideation, homicidal ideation, and hallucinations, Allergy/Immunology: Negative for hives, rash, and allergies, Endocrine: Negative for neck swelling, polydipsia, polyuria, polyphagia, and marked weight changes, Hematologic/Lymphatic: Negative for swollen nodes, abnormal bleeding, and unusual bruising, 13:53 Neuro: Positive for dizziness, Exam: 13:53 Constitutional: This is a well developed, well nourished patient who is awake, alert, nikky and in no acute distress. Head/Face: Normocephalic, atraumatic. ENT: Nares patent. No nasal discharge, no septal abnormalities noted. Tympanic membranes are normal and external auditory canals are clear. Oropharynx with no redness, swelling, or masses, exudates, or evidence of obstruction, uvula midline. Mucous membranes moist. Neck: Trachea midline, no thyromegaly or masses palpated, and no cervical lymphadenopathy. Supple, full range of motion without nuchal rigidity, or vertebral point tenderness. No Meningismus. Chest/axilla: Normal chest wall appearance and motion. Nontender with no deformity. No lesions are appreciated. Cardiovascular: Regular rate and rhythm with a normal S1 and S2. No gallops, murmurs, or rubs. Normal PMI, no JVD. No pulse deficits. Respiratory: Lungs have equal breath sounds bilaterally, clear to auscultation and percussion. No rales, rhonchi or wheezes noted. No increased work of breathing, no retractions or nasal flaring. Abdomen/GI: Soft, non-tender, with normal bowel sounds. No distension or tympany. No guarding or rebound. No evidence of tenderness throughout. Back: No spinal tenderness. No costovertebral tenderness. Full range of motion. Male : Normal genitalia with no discharge or lesions. Skin: Warm, dry with normal turgor. Normal color with no rashes, no lesions, and no evidence of cellulitis. MS/ Extremity: Pulses equal, no cyanosis. Neurovascular intact. Full, normal range of motion. Neuro: Awake and alert, GCS 15, oriented to person, place, time, and situation. Cranial nerves II-XII grossly intact. Motor strength 5/5 in all extremities. Sensory grossly intact. Cerebellar exam normal. Normal gait. Psych: Awake, alert, with orientation to person, place and time. Behavior, mood, and affect are within normal limits. 13:53 ECG was reviewed by the Attending Physician. Vital Signs: 13:14 BP 194 / 88; Pulse 51; Resp 18; Temp 98.6(O); Pulse Ox 95% ; Weight 106.59 kg; Height 5 db ft. 6 in. ; Pain 0/10; 13:30 BP 162 / 72; Pulse 53; Resp 18; Pulse Ox 99% on R/A; Weight 108.41 kg; Height 5 ft. 9 ld1 in. ; Pain 0/10; 13:51 BP 184 / 76; Pulse 76; Resp 18; Pulse Ox 96% on R/A; ld1 14:15 BP 173 / 79; Pulse 55; Resp 18; Pulse Ox 99% on R/A; ld1 14:30 BP 178 / 74; Pulse 57; Resp 18; Pulse Ox 99% on R/A; ld1 14:45 BP 172 / 78; Pulse 55; Resp 18; Pulse Ox 99% on R/A; ld1 13:30 Body Mass Index 35.29 (108.41 kg, 175.26 cm) ld1 13:14 Pain Scale: Adult db 13:30 Pain Scale: Adult ld1 MDM: 13:15 Patient medically screened. nikky 13:54 Differential diagnosis: viral gastroenteritis, gastroenteritis. Differential diagnosis: nikky cardiac arrhythmia, CVA, generalized weakness, near-syncope, syncope, TIA, vertigo. Data reviewed: vital signs, nurses notes, lab test result(s), EKG, radiologic studies, CT scan, plain films. Consideration of Admission/Observation Patient was admitted/placed on observation. Escalation of care including admission/observation considered. I considered the following discharge prescriptions or medication management in the emergency department Medications were administered in the Emergency Department. See MAR. Independent interpretation of the following test(s) in the Emergency Department EKG: See my EKG interpretation above. Test considered but Not performed: MRI: NO MRI BRIAIN. Historians other than the Patient: Family Member: WELL INFORMED. Care significantly affected by the following chronic conditions: Hypertension, Obesity. 01/12 13:16 Order name: Basic Metabolic Panel; Complete [facility]: [facility] 01/12 13:16 Order name: CBC with Diff; Complete Time: 14:05 [facility] 01/12 13:16 Order name: LFT's; Complete Time: 14:05 nikky 01/12 13:16 Order name: Magnesium; Complete Time: 14:05 [facility] 01/12 13:16 Order name: NT PRO-BNP; Complete Time: 14:05 [facility] 01/12 13:16 Order name: PT-INR; Complete Time: 14:05 [facility] 01/12 13:16 Order name: Troponin HS; Complete Time: 14:05 [facility] 01/12 13:16 Order name: Lipase; Complete Time: 14:05 [facility] 01/12 13:51 Order name: glucometer results - FOR PT WITH NO ID ld1 01/12 14:36 Order name: CREATININE WHOLE BLOOD [facility] 01/12 13:16 Order name: XRAY Chest (1 view) [facility] 01/12 13:31 Order name: CT Stroke Brain w/o Contrast; Complete Time: 14:05 [facility] 01/12 13:31 Order name: CT Neck Angio; Complete Time: 14:05 [facility] 01/12 13:37 Order name: Head angio; Complete Time: 14:05 [facility] 01/12 13:16 Order name: EKG; Complete Time: 13:17 [facility] 01/12 13:16 Order name: Cardiac monitoring; Complete Time: 13:27 [facility] 01/12 13:16 Order name: EKG - Nurse/Tech; Complete Time: 13:27 [facility] 01/12 13:16 Order name: IV Saline Lock; Complete Time: 13:27 [facility] 01/12 13:16 Order name: Labs collected and sent; Complete Time: 13:27 [facility] 01/12 13:16 Order name: O2 Per Protocol; Complete Time: 13: [facility] 01/12 13:16 Order name: O2 Sat Monitoring; Complete Time: 13:19 [facility] EC:53 Rate is 54 beats/min. Rhythm is regular. QRS Cash is Normal. CA interval is normal. QRS nikky interval is normal. QT interval is normal. No Q waves. T waves are Normal. No ST changes noted. Clinical impression: Sinus bradycardia. Interpreted by me. Reviewed by me. Administered Medications: 13:25 Drug: NS 0.9% IV 500 ml IV at bolus once Route: IV; Rate: bolus; Site: left antecubital;ld1 13:25 Drug: NS 0.9% IV 1000 ml IV at 125 ml/hr continuous Route: IV; Rate: 125 ml/hr; Site: ld1 left antecubital; 13:25 Drug: Ondansetron IVP 4 mg IVP once; over 2 minutes Route: IVP; Site: left antecubital; ld1 13:45 Drug: foLIC Acid IVPB 1 mg IVPB once Route: IVPB; Site: right antecubital; ld1 13:52 Drug: NS 0.9% IV 500 ml IV at bolus once Route: IV; Rate: bolus; Site: right mb9 antecubital; 13:52 Drug: Meclizine PO 25 mg PO once Route: PO; mb9 14:00 Drug: TNK FOR STROKE - Tenecteplase IV (Administer 10 ml NS flush BEFORE and ld1 AFTER tenecteplase) 0.25 mg/kg IV at per protocol once; MAX DOSE 25 mg, IVP over 5 seconds {Co-Signature: arsen (Joyce Davis RN).} Route: IV; Rate: per protocol; Site: left antecubital; Point of Care Testing: Blood Glucose: 13:52 Blood Glucose: 103 mg/dL; hb Ranges: Critical Glucose Levels:Adult <50 mg/dl or >400 mg/dl <40 mg/dl or >180 mg/dl Disposition Summary: 01/13/24 14:00 Transfer Ordered Notes: Transfer Location: [facility] nikky Reason: Higher level of care nikky Condition: Serious nikky Problem: new nikky Symptoms: have improved nikky Accepting Physician: TO [facility], ER , NICU(01/13/24 14:51) ld1 Diagnosis - Cerebral infarction, unspecified - DIZZY, VERTIGO, POSTERIOR CIRCULATION nikky - Vomiting nikky Forms: - Medication Reconciliation Form nikky - SBAR form nikky Signatures: Dispatcher [employer] EDJasiel Villarreal MD MD cha Sims, Lauren, RN RN ld1 Kala Braun RN RN db Wilkerson, Mary Beth, RN RN mb9 Joyce Davis RN mb9 Corrections: (The following items were deleted from the chart) 13:32 13:32 CT-STROKE BRAIN W/O CONTRAST+CT.RAD.BRZ ordered. EDMS EDMS 13:32 13:32 Neck Angio+CT.RAD.BRZ ordered. EDMS EDMS 14:51 14:00 TO [facility], ER , NICU nikky ld1
--- NOTE | 2024-01-13 14:33 | RAD REPORT ---
EXAM DESCRIPTION: RAD - Chest Single View - 01/13/2024 2:10 pm CLINICAL HISTORY: COUGH COMPARISON: Chest Single View dated 09/22/2020; Chest Pa And Lat (2 Views) dated 09/09/2017; Chest Pa And Lat (2 Views) dated 05/26/2017; Chest Single View dated 01/27/2016 FINDINGS: Lines: None. Lungs: Prominence of the interstitial markings at the right lung base. No definite acute process . Pleural: No significant pleural effusions or pneumothorax. Cardiac: Mild cardiomegaly. Mediastinum: Within normal limits. Bones: No acute fractures. Other: None IMPRESSION: No definite acute cardiopulmonary disease. Some nonspecific interstitial prominence at t he right lung base could represent some mild atelectasis or pneumonitis.
[2024-01-13 15:41] VITALS: TEMP 98.6
[2024-01-13 15:46] VITALS: O2SAT 99
[2024-01-13 15:49] VITALS: BP 172/78
--- NOTE | 2024-01-15 17:51 | EKG ---
Test Date: 2024-01-13 Test Time: 13:24:05 Rip Sawyer: MB MEASUREMENT RESULTS: Intervals: Rate: 54 LA: 212 QRSD: 100 QT: 424 QTc: 402 Yarnell: P: 30 LA: 212 QRS: 37 T: 19 INTERPRETIVE STATEMENTS: Sinus bradycardia with 1st degree AV block Otherwise normal ECG Compared to ECG 09/22/2020 19:26:51 First degree AV block now present Sinus rhythm no longer present Ventricular premature complex(es) no longer present Electronically Signed On 01-15-24 17:47:39 CDT by Daniel Tom
== END 2024-01-13 14:51 | disposition short-term general hospital (02) ==
LOC: ER 12:52
DX: I63.9 Cerebral infarction, unspecified (principal); R11.10 Vomiting, unspecified; I10 Essential (primary) hypertension; Z79.82 Long term (current) use of aspirin
CPT/HCPCS: 92977; 93005; 85025; 80048; 36415; 83735; 85610; 82565; 82947; 80076; 84484; 83690; 83880; 70496; 70498; 70450; 71045; 99285; Q9967; J8597; J3101

== ENCOUNTER 2024-03-11 15:47 | Emergency (ER) | payer OTHER ==
[2024-03-11 16:27] LABS: Eosinophils % 0.3 % (0-4.4); Hematocrit 39.4 % (39.6-49.0); Hemoglobin 13.2 g/dL (13.6-17.9); Lymphocytes % 18.7 % (15.3-44.8); MCH 29.6 pg (27.0-35.0); MCHC 33.6 g/dL (32.0-36.0); Monocytes % 5.3 % (3.3-12.3); Neutrophils % 75.2 % (41.7-73.7); Platelets 269 thou/uL (152-406); RBC Red Blood Cell Count 4.48 M/uL (4.33-5.43); Red Cell Distribution Width 13.4 % (12.1-15.2)
[2024-03-11 16:28] LABS: Absolute Lymphocytes (CBC) 1.5 K/uL (0.7-4.9); Absolute Monocytes 0.4 K/uL (0.1-1.3); Absolute Neutrophil 6.2 K/uL (1.8-8.0); Basophils % 0.5 % (0-1.3)
[2024-03-11] MEDS ORDERED: ONDANSETRON 4 MG/2 ML VIAL ONE (16:36)
[2024-03-11] MEDS ORDERED: MORPHINE 4 MG/ML SYR ONE ×2 (16:36→18:38)
[2024-03-11] MEDS ORDERED: NA CHLORIDE 0.9% 1,000 ML ONE (16:37)
[2024-03-11 16:43] LABS: Albumin 3.6 g/dL (3.4-5.0); Albumin/Globulin Ratio 0.9 (1.1-1.8); Anion Gap 7.3 mEq/L (5.0-15.0); Bilirubin Total 1.1 mg/dL (0.2-1.0); Globulin 3.9 g/dL (2.3-3.5); Potassium 4.3 mEq/L (3.5-5.1); Protein, Total 7.5 g/dL (6.4-8.2)
[2024-03-11 17:33] LABS: Specific Gravity 1.021 (1.005-1.030); Urine Bilirubin NEGATIVE (Negative); Urine Blood Negative (Negative); Urine Clarity Clear (Clear); Urine Color Light-Yellow (Yellow); Urine Glucose NEGATIVE (Negative); Urine Ketones NEGATIVE (Negative); Urine Microscopic Reflex YN NO UMIC; Urine Nitrite NEGATIVE (Negative); Urine Protein NEGATIVE (Negative); Urine Urobilinogen Normal (Normal)
--- NOTE | 2024-03-11 18:25 | RAD REPORT ---
EXAMINATION: Stone Protocol CLINICAL INDICATION: Male, 78 years old. FLANK PAIN TECHNIQUE: CT abdomen and pelvis was performed, without IV contrast, as per department protocol. Axia l, sagittal and coronal reconstructions were obtained. One or more of the following dose reduction techniques were used: Automated exposure control, adjustment of the mA and kV according to the patien t size, and iterative reconstruction. Unless otherwise specified, incidental findings do not require dedicated imaging follow-up. COMPARISON: 09/28/2020. FINDINGS: The lack of intravenous contrast limits the sensitivity of this exam for evaluation of solid visceral organs, vascular structures, and retroperitoneum. LOWER CHEST: The visualized lung bases are clear. LIVER: Normal in size and contour. Subcapsular inferior right lobe 4.9 cm fluid density cyst and othe r smaller cysts, stable. BILIARY SYSTEM: No suspicious abnormalities. SPLEEN: Normal size. No focal lesion. PANCREAS: No mass, ductal dilation, or chris-pancreatic fluid. ADRENALS: Normal; no mass. KIDNEYS AND URETERS: Normal size and contour. No hydronephrosis. URINARY BLADDER: Normal contour. GASTROINTESTINAL TRACT: No evidence of bowel obstruction, significant free fluid, free air or abscess . Moderate distal colonic diverticulosis. Mild inflammatory changes around the distal transverse colon diverticulum projecting superiorly, with no appreciable fluid collections. APPENDIX: Normal appendix. LYMPH NODES: No lymphadenopathy. MUSCULOSKELETAL: No acute or suspicious osseous abnormality. ADDITIONAL FINDINGS: Small left inguinal hernia containing fat. IMPRESSION: Colonic diverticulosis distally, with mild focal inflammatory changes involving the distal transverse colon as above, suggesting early mild acute diverticulitis. No evidence of complications. Other stable findings as above.
[2024-03-11] MEDS ORDERED: metroNIDAZOLE 500 MG TABLET ONE (18:38)
[2024-03-11] MEDS ORDERED: CIPROFLOXACIN HCL 500 MG TAB ONE (18:38)
--- NOTE | 2024-03-11 18:43 | ER ---
Nurse's Notes [facility] Name: Donovan Richardson Age: 78 yrs Sex: Male : 1945 Arrival Date: 03/11/2024 Time: 15:47 Bed 9 Private MD: Javi Holman Diagnosis: Diverticulitis of intestine, part unspecified, without perforation or abscess without bleeding Presentation: 03/11 16:04 Chief complaint: Patient states: he has been having right lower back pain since ap3 yesterday, and nausea/vomiting. patient rates the pain as a 9/10 on the pain scale. patient states the pain does not radiate. Coronavirus screen: At this time, the client does not indicate any symptoms associated with coronavirus-19. Ebola Screen: No symptoms or risks identified at this time. Risk Assessment: Do you want to hurt yourself or someone else? Patient reports no desire to harm self or others. Onset of symptoms was March 10, 2024. 16:04 Method Of Arrival: Ambulatory ap3 16:04 Acuity: TOMMIE 3 ap3 16:07 Initial Sepsis Screen: Does the patient meet any 2 criteria? No. Patient's initial ap3 sepsis screen is negative. Does the patient have a suspected source of infection? No. Patient's initial sepsis screen is negative. Triage Assessment: 16:06 General: Appears uncomfortable, Behavior is calm, cooperative, appropriate for age. ap3 Pain: Complains of pain in right low back Pain does not radiate. Pain currently is 9 out of 10 on a pain scale. Pain began 1 day ago. Also complains of nausea. Neuro: Level of Consciousness is awake, alert, obeys commands, Oriented to person, place, time, situation, Appropriate for age Gait is steady, Speech is normal. Cardiovascular: Patient's skin is warm and dry. Respiratory: Airway is patent Respiratory effort is even, unlabored, Respiratory pattern is regular, symmetrical. GI: Reports nausea, vomiting. Historical: - Allergies: 16:05 No Known Allergies; ap3 - PMHx: 16:05 Hypertension; ap3 - Immunization history:: Client reports receiving the 2nd dose of the Covid vaccine, Flu vaccine is up to date. - Infectious Disease History:: Denies. - Social history:: Smoking status: Patient denies any tobacco usage or history of. Screenin:06 [facility] ED Fall Risk Assessment (Adult) History of falling in the last 3 months, ap3 including since admission No falls in past 3 months (0 pts) Confusion or Disorientation No (0 pts) Intoxicated or Sedated No (0 pts) Impaired Gait No (0 pts) Mobility Assist Device Used No (0 pt) Altered Elimination No (0 pt) Score/Fall Risk Level 0 - 2 = Low Risk Oriented to surroundings, Maintained a safe environment, Educated pt \T\ family on fall prevention, incl call for assistance when getting out of bed, Assessed \T\ reinforced patient's understanding of fall precautions, Hourly rounding (assess needs \T\ fall precautionary measures) done, Used ambulatory aids as needed (educated on \T\ assisted with), Used gait belt as appropriate. Abuse screen: Denies threats or abuse. Nutritional screening: No deficits noted. Tuberculosis screening: No symptoms or risk factors identified. Assessment: 16:25 General: Appears in no apparent distress. Behavior is calm, cooperative. Pain: iw Complains of pain in right low back Pain radiates to right lower quadrant. Neuro: Level of Consciousness is awake, alert, obeys commands, Oriented to person, place, time, situation, Moves all extremities. Full function. Cardiovascular: Patient's skin is warm and dry. Respiratory: Respiratory effort is unlabored, Respiratory pattern is regular. GI: Reports nausea, vomiting. Derm: Skin is intact, is healthy with good turgor. Musculoskeletal: Range of motion: intact in all extremities. 17:25 Reassessment: Patient appears in no apparent distress at this time. Patient and/or iw family updated on plan of care and expected duration. Pain level reassessed. Patient is alert, oriented x 3, equal unlabored respirations, skin warm/dry/pink. Patient states feeling better. Patient states symptoms have improved. 18:22 Reassessment: pt reports pain has increased, now 8/10. iw Vital Signs: 16:04 Pulse 70; Resp 17; Temp 97.8; Pulse Ox 100% ; Weight 106.59 kg; Height 5 ft. 6 in. ; ap3 Pain 9/10; 16:07 BP 165 / 89; ap3 18:21 BP 161 / 82; Pulse 74; Resp 16; Pulse Ox 96% on R/A; Pain 8/10; iw 16:04 Body Mass Index 37.93 (106.59 kg, 167.64 cm) ap3 16:04 Pain Scale: Adult ap3 18:21 Pain Scale: Adult iw ED Course: 15:48 Patient arrived in ED. am2 15:48 Javi Holman DO is Private Physician. am2 15:55 [facility]C [facility] kb 15:55 Cornelio Mendoza MD is Attending Physician. kb 16:05 Triage completed. ap3 16:07 Arm band placed on left wrist. ap3 16:25 Initial lab(s) drawn, by me, sent to lab. Inserted saline lock: 20 gauge in right iw antecubital area, using aseptic technique. Blood collected. Flushed with 10 mL NS. 16:52 Kenzie Hastings, LUCIA is Primary Nurse. iw 17:51 CT Stone Protocol In Process Unspecified. EDMS 19:01 No provider procedures requiring assistance completed. IV discontinued, intact, iw bleeding controlled, No redness/swelling at site. Pressure dressing applied. 19:02 Patient has correct armband on for positive identification. Provided Education on: . iw Administered Medications: 16:52 Drug: Ondansetron IVP 4 mg IVP once; over 2 minutes Route: IVP; Site: right antecubital;iw 18:46 Follow up: Response: No adverse reaction iw 16:52 Drug: morphine IVP or IV 4 mg IVP once over 4 mins Route: IVP; Infused Over: 4 mins; iw Site: right antecubital; 18:30 Follow up: Response: No adverse reaction; Pain is increased iw 16:52 Drug: NS 0.9% IV 1000 ml IV at 1 bolus Per protocol; to be given as a bolus over 60 iw minutes Route: IV; Rate: 1 bolus; Site: right antecubital; 19:01 Follow up: IV Status: Completed infusion iw 18:46 Drug: Ciprofloxacin PO 500 mg PO once Route: PO; iw 19:01 Follow up: Response: No adverse reaction iw 18:46 Drug: metroNIDAZOLE PO 500 mg PO once Route: PO; iw 19:01 Follow up: Response: No adverse reaction iw 18:46 Drug: morphine IVP or IV 4 mg IVP once over 4 mins Route: IVP; Infused Over: 4 mins; iw Site: right antecubital; 19:01 Follow up: Response: No adverse reaction; Pain is decreased iw Medication: 19:02 VIS not applicable for this client. iw Outcome: 18:42 Discharge ordered by . mya 19:02 Discharged to home ambulatory, with family, iw 19:02 Condition: good 19:02 Discharge instructions given to patient, family, Instructed on discharge instructions, follow up and referral plans. medication usage, Demonstrated understanding of instructions, follow-up care, medications, Prescriptions given X 4, 19:02 Patient left the ED. iw Signatures: Dispatcher [employer] EDMS Mley Ramirez, TURFGRASS TECHNICIAN-C TURFGRASS TECHNICIAN-Kenzie Reece, RN RN Selena Davidson am2 Selena Byrne RN RN ap3
--- NOTE | 2024-03-11 18:43 | EDPHYS ---
Physician Documentation [facility] Name: Donovan Richardson Age: 78 yrs Sex: Male : 1945 Arrival Date: 03/11/2024 Time: 15:47 Bed 9 Private MD: Javi Holman ED Physician Cornelio Mendoza HPI: 03/11 18:41 This 78 yrs old Male presents to ER via Ambulatory with complaints of Flank kb Pain, Low Back Pain - right side. 18:41 Pt is a 78 year old male who presents for right lower back/lateral abd pain that kb started yesterday with associated nausea and vomiting. denies diarrhea, fever. No alleviating or aggravating factors. . Historical: - Allergies: 16:05 No Known Allergies; ap3 - PMHx: 16:05 Hypertension; ap3 - Immunization history:: Client reports receiving the 2nd dose of the Covid vaccine, Flu vaccine is up to date. - Infectious Disease History:: Denies. - Social history:: Smoking status: Patient denies any tobacco usage or history of. ROS: 18:28 Constitutional: As per HPI kb Exam: 18:33 Constitutional: This is a well developed, well nourished patient who is awake, alert, kb and in no acute distress. Head/Face: Normocephalic, atraumatic. ENT: Moist Mucous membranes Cardiovascular: Regular rate Respiratory: Respirations even and unlabored. No increased work of breathing. Talking in full sentences Skin: Warm, dry with normal turgor. Normal color. MS/ Extremity: Pulses equal, no cyanosis. Neurovascular intact. Full, normal range of motion. Neuro: Awake and alert, GCS 15, oriented to person, place, time, and situation. Moves all extremities. Normal gait. 18:33 Abdomen/GI: Inspection: abdomen appears normal, Bowel sounds: normal, Palpation: soft, in all quadrants, mild abdominal tenderness, in the right lower quadrant, 18:33 Back: CVA tenderness, that is mild, is noted on the right, Vital Signs: 16:04 Pulse 70; Resp 17; Temp 97.8; Pulse Ox 100% ; Weight 106.59 kg; Height 5 ft. 6 in. ; ap3 Pain 9/10; 16:07 BP 165 / 89; ap3 18:21 BP 161 / 82; Pulse 74; Resp 16; Pulse Ox 96% on R/A; Pain 8/10; iw 16:04 Body Mass Index 37.93 (106.59 kg, 167.64 cm) ap3 16:04 Pain Scale: Adult ap3 18:21 Pain Scale: Adult iw MDM: 15:55 Medical Screening Exam initiated kb 18:34 Differential diagnosis: nephrolithiasis, pyelonephritis, UTI, diverticulitis. Data kb reviewed: vital signs, nurses notes. Consideration of Admission/Observation Escalation of care including admission/observation considered. admission considered for diverticulitis, but pt is nontoxic in appearance, afebrile, tolerating po intake. Pt in agreement with outpatient antibiotic therapy. Will return for worsening symptoms. . Historians other than the Patient: Daughter/Son: daughter. Counseling: I had a detailed discussion with the patient and/or guardian regarding the historical points, exam findings, and any diagnostic results supporting the discharge/admit diagnosis, lab results, radiology results, the need for outpatient follow up, a family practitioner, to return to the emergency department if symptoms worsen or persist or if there are any questions or concerns that arise at home. 03/11 16:12 Order name: CBC with Diff; Complete Time: 16:28 kb 03/11 16:12 Order name: CMP; Complete Time: 16:45 kb 03/11 16:12 Order name: Lipase; Complete Time: 16:45 kb 03/11 16:12 Order name: Urinalysis w/ reflexes; Complete Time: 17:33 kb 03/11 16:12 Order name: CT Stone Protocol; Complete Time: 18:26 kb 03/11 16:12 Order name: IV Saline Lock; Complete Time: 16:27 kb 03/11 16:12 Order name: Labs collected and sent; Complete Time: 16:27 kb Administered Medications: 16:52 Drug: Ondansetron IVP 4 mg IVP once; over 2 minutes Route: IVP; Site: right antecubital;iw 18:46 Follow up: Response: No adverse reaction iw 16:52 Drug: morphine IVP or IV 4 mg IVP once over 4 mins Route: IVP; Infused Over: 4 mins; iw Site: right antecubital; 18:30 Follow up: Response: No adverse reaction; Pain is increased iw 16:52 Drug: NS 0.9% IV 1000 ml IV at 1 bolus Per protocol; to be given as a bolus over 60 iw minutes Route: IV; Rate: 1 bolus; Site: right antecubital; 19: Follow up: IV Status: Completed infusion iw 18:46 Drug: Ciprofloxacin PO 500 mg PO once Route: PO; iw 19: Follow up: Response: No adverse reaction iw 18:46 Drug: metroNIDAZOLE PO 500 mg PO once Route: PO; iw 19: Follow up: Response: No adverse reaction iw 18:46 Drug: morphine IVP or IV 4 mg IVP once over 4 mins Route: IVP; Infused Over: 4 mins; iw Site: right antecubital; 19: Follow up: Response: No adverse reaction; Pain is decreased iw Disposition Summary: 03/11/24 18:42 Discharge Ordered Notes: Location: Home kb Condition: Stable kb Diagnosis - Diverticulitis of intestine, part unspecified, without perforation or abscess kb without bleeding Followup: kb - With: Emergency Department - When: As needed - Reason: Worsening of condition Followup: kb - With: Private Physician - When: 2 - 3 days - Reason: Recheck today's complaints, Continuance of care, Re-evaluation by your physician Discharge Instructions: - Discharge Summary Sheet kb - Diverticulitis, [id number] kb Forms: - Medication Reconciliation Form kb - Antibiotic Education kb - Prescription Opioid Use kb - Patient Portal Instructions kb - Leadership Thank You Letter kb Prescriptions: - Flagyl 500 mg Oral Tablet - take 1 tablet ORAL route every 8 hours for 10 days; 30 tablet; Refills: 0, kb Product Selection Permitted - Zofran 4 mg Oral tablet - take 1 tablet ORAL route every 6 hours As needed; 12 tablet; Refills: 0, kb Product Selection Permitted - Cipro 500 mg Oral tablet - take 1 tablet ORAL route every 12 hours for 10 days; 20 tablet; Refills: 0, kb Product Selection Permitted - Diclofenac Sodium 75 mg Oral tablet, delayed release (enteric coated) - take 1 tablet ORAL route 2 times per day As needed; 30 tablet; Refills: 0, kb Product Selection Permitted Signatures: Dispatcher [employer] Mely Arndt FNP-C FNP-Kenzie Reece RN RN iw Selena Byrne RN RN ap3
[2024-03-11 22:00] VITALS: TEMP 97.8
[2024-03-11 22:02] VITALS: BP 161/82; O2SAT 96
== END 2024-03-11 19:02 | disposition home or self-care (01) ==
LOC: ER 15:47
DX: K57.32 Diverticulitis of large intestine without perforation or abscess without bleeding (principal); I10 Essential (primary) hypertension
CPT/HCPCS: 85025; 36415; 81003; 83690; 80053; 76377; 74176; J2405; J7030; 96361; 96374; 96375; 99284

== ENCOUNTER 2024-03-13 10:29 | Emergency (ER) | payer OTHER ==
--- NOTE | 2024-03-13 12:51 | RAD REPORT ---
EXAM: Knee Right 2 View HISTORY: [facility] Bed Name: IW3 COMPARISON: None TECHNIQUE: 2 views of the right knee were obtained. FINDINGS: No knee effusion is seen. There is no evidence of acute fracture or dislocation. Mild-to-m oderate tricompartmental degenerative changes are seen. No soft tissue swelling or other soft tissue abnormality is present. IMPRESSION: No evidence of acute osseous abnormality. Mild to moderate tricompartmental osteoarthrit ic changes.
[2024-03-13] MEDS ORDERED: HYDROCODONE/APAP 5/325 MG TAB ONE (14:01)
[2024-03-13] MEDS ORDERED: IBUPROFEN 200 MG TAB PO ONE (14:02)
--- NOTE | 2024-03-13 14:05 | ER ---
Nurse's Notes [facility] Name: Donovan Richardson Age: 78 yrs Sex: Male : 1945 Arrival Date: 03/13/2024 Time: 10:29 Bed DX2 Private MD: Diagnosis: Unilateral primary osteoarthritis, right knee Presentation: 03/13 10:52 Chief complaint: Patient states: Tearing sensation in R knee when ambulating this morning, hx of knee problems, ambulatory into triage w/ walker. Coronavirus screen: Vaccine status: Patient reports receiving the 2nd dose of the covid vaccine. Ebola Screen: No symptoms or risks identified at this time. Initial Sepsis Screen: Does the patient meet any 2 criteria? No. Patient's initial sepsis screen is negative. Does the patient have a suspected source of infection? No. Patient's initial sepsis screen is negative. Risk Assessment: Do you want to hurt yourself or someone else? Patient reports no desire to harm self or others. Onset of symptoms was March 13, 2024. 10:52 Method Of Arrival: Ambulatory 10:52 Acuity: TOMMIE 4 ph Historical: - Allergies: 10:53 No Known Allergies; ph - Home Meds: 10:53 aspirin 81 mg Oral TbEC 1 tab once daily [Active]; atorvastatin 20 mg Oral tab 1 tab ph once daily [Active]; losartan oral [Active]; - PMHx: 10:53 Hypertension; ph - Infectious Disease History:: Denies. - Social history:: Smoking status: Patient denies any tobacco usage or history of. Screenin:10 Abuse screen: Denies threats or abuse. Denies injuries from another. Nutritional ss screening: No deficits noted. Tuberculosis screening: Never had TB. Assessment: 14:10 General: Appears in no apparent distress. comfortable, Behavior is calm, cooperative. ss Pain: Complains of pain in knee Pain currently is 7 out of 10 on a pain scale. Neuro: Level of Consciousness is awake, alert, obeys commands. Respiratory: Airway is patent Respiratory effort is even, unlabored, Respiratory pattern is regular, symmetrical. EENT: Oral mucosa is moist. Derm: Skin is intact, is healthy with good turgor, Skin is pink, warm \T\ dry. normal. Vital Signs: 10:52 BP 126 / 73; Pulse 82; Resp 18; Temp 97.9; Pulse Ox 99% on R/A; Weight 106.59 kg; ph Height 5 ft. 6 in. ; 10:52 Body Mass Index 37.93 (106.59 kg, 167.64 cm) ph ED Course: 10:32 Patient arrived in ED. mg5 10:53 Triage completed. ph 10:54 Arm band placed on Patient placed in waiting room, Patient notified of wait time. ph 11:05 Ines Weiss MD is Attending Physician. gb1 11:55 Knee Right 2 View XRAY In Process Unspecified. EDMS 14:03 Leyla Hernandez, RN is Primary Nurse. ss 14:04 Gurmeet Thomason MD is Referral Physician. gb1 14:10 Patient has correct armband on for positive identification. Bed in low position. ss 14:10 No provider procedures requiring assistance completed. Patient did not have IV access ss during this emergency room visit. Administered Medications: 14:07 Drug: HYDROcodone-acetaminophen PO 5 mg-325 mg 1 tabs PO once Route: PO; ss 14:12 Follow up: Response: Medication Administered at Departure ss 14:07 Drug: Ibuprofen PO 600 mg PO once Route: PO; ss 14:12 Follow up: Response: No adverse reaction; Medication Administered at Departure Medication: 14:10 VIS not applicable for this client. ss Outcome: 14:05 Discharge ordered by . gb1 14:10 Discharged to home ambulatory, ss 14:10 Condition: good 14:10 Discharge instructions given to patient, family, Instructed on discharge instructions, follow up and referral plans. medication usage, Demonstrated understanding of instructions, follow-up care, 14:12 Patient left the ED. ss Signatures: Dispatcher [employer] EDLA Leyla Hernandez, LUCIA RN Naina Tucker RN RN [facility] mg5 Ines Weiss MD MD gb1
--- NOTE | 2024-03-13 14:05 | EDPHYS ---
Physician Documentation [facility] Name: Donovan Richardson Age: 78 yrs Sex: Male : 1945 Arrival Date: 03/13/2024 Time: 10:29 Bed DX2 Private MD: ED Physician Ines Weiss HPI: 03/13 14:05 This 78 yrs old Male presents to ER via Ambulatory with complaints of Knee gb1 Pain. 14:05 78-year-old male with right knee pain no trauma or falls reported. He sees Dr. Thomason is gb1 told he needed a knee replacement if the cortisone shot did not work. He had a cortisone shot about 4 months ago. Patient denies any redness or swelling to the right knee. He is does have pain when he walks. The change in weather has caused the pain in his right knee to be worse.. Historical: - Allergies: 10:53 No Known Allergies; ph - Home Meds: 10:53 aspirin 81 mg Oral TbEC 1 tab once daily [Active]; atorvastatin 20 mg Oral tab 1 tab ph once daily [Active]; losartan oral [Active]; - PMHx: 10:53 Hypertension; ph - Infectious Disease History:: Denies. - Social history:: Smoking status: Patient denies any tobacco usage or history of. Exam: 14:05 Constitutional: This is a well developed, well nourished patient who is awake, alert, gb1 and in no acute distress. Head/Face: Normocephalic, atraumatic. Eyes: Pupils equal round and reactive to light, extra-ocular motions intact. Lids and lashes normal. Conjunctiva and sclera are non-icteric and not injected. Cornea within normal limits. Periorbital areas with no swelling, redness, or edema. ENT: Nares patent. No nasal discharge, no septal abnormalities noted. Tympanic membranes are normal and external auditory canals are clear. Oropharynx with no redness, swelling, or masses, exudates, or evidence of obstruction, uvula midline. Mucous membranes moist. Neck: Trachea midline, no thyromegaly or masses palpated, and no cervical lymphadenopathy. Supple, full range of motion without nuchal rigidity, or vertebral point tenderness. No Meningismus. Chest/axilla: Normal chest wall appearance and motion. Nontender with no deformity. No lesions are appreciated. Cardiovascular: Regular rate and rhythm with a normal S1 and S2. No gallops, murmurs, or rubs. Normal PMI, no JVD. No pulse deficits. Respiratory: Lungs have equal breath sounds bilaterally, clear to auscultation and percussion. No rales, rhonchi or wheezes noted. No increased work of breathing, no retractions or nasal flaring. Abdomen/GI: Soft, non-tender, with normal bowel sounds. No distension or tympany. No guarding or rebound. No evidence of tenderness throughout. Back: No spinal tenderness. No costovertebral tenderness. Full range of motion. Skin: Warm, dry with normal turgor. Normal color with no rashes, no lesions, and no evidence of cellulitis. MS/ Extremity: Pulses equal, no cyanosis. Neurovascular intact. Full, normal range of motion of left knee, right knee has limited range of motion secondary to pain. Vital Signs: 10:52 BP 126 / 73; Pulse 82; Resp 18; Temp 97.9; Pulse Ox 99% on R/A; Weight 106.59 kg; ph Height 5 ft. 6 in. ; 10:52 Body Mass Index 37.93 (106.59 kg, 167.64 cm) ph MDM: 11:05 Medical Screening Exam initiated gb1 14:05 Data reviewed: vital signs, nurses notes, radiologic studies, plain films. ED course: gb1 78-year-old male with chronic right knee pain with an acute exacerbation. Patient recently received a cortisone shot and has been taking pain medicine as prescribed at home. Patient has been told that his orthopedic surgeon of record that he does need a right knee replacement secondary to tricompartmental osteoarthritis. I did verify the diagnosis is without effusion on the right knee x-ray that was completed today. Patient's that is bedside and I will medicate him with pain medication prior to being discharged home today. I will not prescribe any new pain medication because he does have previously prescribed pain medication already at home. Patient will follow-up routinely with his orthopedic surgeon of record Dr. Thomason in 1 to 2 days.. 03/13 11:25 Order name: Knee Right 2 View XRAY; Complete Time: 13:09 [facility] Administered Medications: 14:07 Drug: HYDROcodone-acetaminophen PO 5 mg-325 mg 1 tabs PO once Route: PO; 14:12 Follow up: Response: Medication Administered at Departure ss 14:07 Drug: Ibuprofen PO 600 mg PO once Route: PO; 14:12 Follow up: Response: No adverse reaction; Medication Administered at Departure ss Disposition Summary: 03/13/24 14:05 Discharge Ordered Notes: Location: Home gb1 Condition: Stable gb1 Diagnosis - Unilateral primary osteoarthritis, right knee gb1 Followup: gb1 - With: Gurmeet Thomason MD - When: 1 - 2 days - Reason: Recheck today's complaints Discharge Instructions: - Discharge Summary Sheet gb1 - Osteoarthritis gb1 Forms: - Medication Reconciliation Form gb1 - Antibiotic Education gb1 - Prescription Opioid Use gb1 - Patient Portal Instructions gb1 - Leadership Thank You Letter gb1 Signatures: Dispatcher [employer] Leyla Powers, Naina Sosa RN, RN RN Ines Weiss MD MD gb1
[2024-03-13 14:18] VITALS: BP 126/73; TEMP 97.9; O2SAT 99
== END 2024-03-13 14:12 | disposition home or self-care (01) ==
LOC: ER 10:29
DX: M17.11 Unilateral primary osteoarthritis, right knee (principal); I10 Essential (primary) hypertension; Z79.82 Long term (current) use of aspirin
CPT/HCPCS: 99283

== ENCOUNTER 2024-06-27 08:40 | Day surgery (SDC) | payer OTHER ==
[2024-06-23 09:27] LABS: Absolute Basophils 0.1 K/uL (0-0.5); Absolute Eosinophils 0.1 K/uL (0-0.5); Absolute Monocytes 0.4 K/uL (0.1-1.3); Absolute Neutrophil 3.4 K/uL (1.8-8.0); Eosinophils % 1.5 % (0-4.4); Hematocrit 38.3 % (39.6-49.0); Lymphocytes % 33.3 % (15.3-44.8); MCH 29.4 pg (27.0-35.0); MCHC 33.9 g/dL (32.0-36.0); MCV 86.8 fL (80-100); MPV 7.4 fL (7.6-11.3); Monocytes % 6.6 % (3.3-12.3); Neutrophils % 57.6 % (41.7-73.7); Nucleated Red Blood Cells % 0.1 % (0-0); Platelets 256 thou/uL (152-406); RBC Red Blood Cell Count 4.41 M/uL (4.33-5.43); Red Cell Distribution Width 14.4 % (12.1-15.2)
[2024-06-23 09:39] LABS: Anion Gap 8.2 mEq/L (5.0-15.0); Potassium 4.2 mEq/L (3.5-5.1)
[2024-06-23 09:42] LABS: PT Prothrombin Time 10.8 SECONDS (9.4-12.5); PTT, Activated Partial Thromb 32.7 SECONDS (24.3-36.9); Protime INR 1.03
[2024-06-27] MEDS ORDERED: CEFAZOLIN SODIUM 2 GM/VIAL ONE (09:06)
[2024-06-27] MEDS: Ringers Lactate 1,000 ML IV ONE (09:15)
[2024-06-27] MEDS ORDERED: BUPIVACAINE 0.25% PF 30 ML VIAL ONE (09:44)
[2024-06-27] MEDS ORDERED: LIDOCAINE 2% MPF 5 ML VIAL ONE (10:27)
[2024-06-27] MEDS ORDERED: ONDANSETRON 4 MG/2 ML VIAL ONE (10:27)
[2024-06-27] MEDS ORDERED: propofoL 200 MG/20 ML VIAL IV ONE (10:27)
[2024-06-27] MEDS ORDERED: FENTANYL CITR 100 MCG/2 ML ONE (10:27)
[2024-06-27] MEDS ORDERED: dexAMETHasone 4 MG/ML VIAL ONE (10:45)
[2024-06-27] MEDS ORDERED: EPHEDRINE SULF 50 MG/ML VIAL ONE (10:46)
[2024-06-27] MEDS: BUPIVACAINE 0.25% PF 10 ML VIAL ONE (11:11)
--- NOTE | 2024-06-27 11:25 | P.BOP ---
Preoperative diagnosis: Right knee medial meniscus tear, right knee osteoarthritis Postoperative diagnosis: Same Primary procedure: Right knee arthroscopic partial medial meniscectomy [place]: NONE,NONE Estimated blood loss: 3 cc Specimen: None Findings: See dictation Anesthesia: General Implants: None Fluids & blood products: Per anesthesia record Transferred to: Recovery Room Condition: Good
[2024-06-27 15:36] VITALS: BP 140/75; TEMP 97.1; O2SAT 99
== END 2024-06-27 12:50 | disposition home or self-care (01) ==
LOC: OR 08:40
PROVIDERS: ATTEND Orthopaedic Surgery Sports Medicine
PROC: 0SBC4ZZ Excision of Right Knee Joint, Percutaneous Endoscopic Approach (ICD-10-PCS; principal; 2024-06-27 10:30)
DX: S83.241A Other tear of medial meniscus, current injury, right knee, initial encounter (principal)
CPT/HCPCS: 85025; 80048; 36415; 85610; 85730; 29880; J2704; J1100; J2003; J3010; J2405; J7120